=== PATIENT | male | born 1975 | race Caucasian/White ===

== ENCOUNTER 2016-08-06 23:48 | Inpatient (IN) | payer MEDICAID, OTHER ==
[~2016-08-06] VITALS: Ht 170.2 cm; Wt 78.7 kg
[~2016-08-06 23:48] MED LIST: ALBU8.5H3 INH; [UNRECOGNIZED DRUG - OTHER] PO; albuterol
[2016-08-06] MEDS ORDERED: ALBU2.5V3 NEB (23:55)
[2016-08-07 00:30] LABS: ADD SCAN DIFF NO
[2016-08-07 00:33] LABS: BASOPHILS % 0.2 % (0.0-2.0); EOSINOPHILS # 0.1 10^3/ul (0.0-0.5); HEMATOCRIT 38.4 % (42.0-52.0); HEMOGLOBIN 12.6 g/dl (14.0-18.0); LYMPHOCYTES # 2.8 10^3/ul (0.8-2.9); LYMPHOCYTES % 48.2 % (15.0-51.0); MEAN CORPUSCULAR HEMOGLOBIN 26.9 pg (29.0-33.0); MEAN CORPUSCULAR HGB CONC 32.8 g/dl (32.0-37.0); MEAN CORPUSCULAR VOLUME 81.9 fl (82.0-101.0); MEAN PLATELET VOLUME 10.7 fl (7.4-10.4); MONOCYTE # 0.2 10^3/ul (0.3-0.9); MONOCYTES % 3.8 % (0.0-11.0); NEUTROPHIL # 2.7 10^3/ul (1.6-7.5); NEUTROPHILS % 46.6 % (39.0-77.0); PLATELET COUNT 156 10^3/UL (140-415); RED BLOOD COUNT 4.69 10^6/ul (4.70-6.10); RED CELL DISTRIBUTION WIDTH 13.9 % (11.5-14.5); WHITE BLOOD COUNT 5.9 10^3/ul (4.8-10.8)
[2016-08-07] MEDS ORDERED: GLUCAGON 1 MG INJ IM STA (00:44)
[2016-08-07] MEDS ORDERED: ONDANSETRON 4 MG INJ IV STA (00:44)
[2016-08-07 00:52] LABS: ALBUMIN/GLOBULIN RATIO 1.61; BILIRUBIN,INDIRECT 0.3 mg/dl (0-1.1); BILIRUBIN,TOTAL 0.3 mg/dl (0.2-1.3); CALCIUM 9.7 mg/dl (8.4-10.2); CREATININE 0.87 mg/dl (0.61-1.24); TOTAL PROTEIN 8.1 g/dl (6.1-8.1)
[2016-08-07 00:54] LABS: POTASSIUM 2.5 mmol/L (3.5-5.1)
[2016-08-07] MEDS ORDERED: MAGNESIUM SULFATE 1 GM/D5W 100 ML IVPB ONE (01:00)
[2016-08-07] MEDS ORDERED: POTASSIUM CHLORIDE 250 ML IVPB ONE (01:00)
[2016-08-07] MEDS ORDERED: POTASSIUM CHLORIDE (SR) 20 MEQ TAB PO STA (01:00)
[2016-08-07 01:01] LABS: ADD UMIC YES; UR BILIRUBIN (Dip) NEGATIVE (NEGATIVE); UR BLOOD (Dip) 3+ (NEGATIVE); UR COLOR DK. RED (YELLOW); UR KETONES (Dip) 15 (NEGATIVE); UR LEUKOCYTE ESTERASE (Dip) 1+ (NEGATIVE); UR NITRITE (Dip) POSITIVE (NEGATIVE); UR TOTAL PROTEIN (Dip) 2+ (NEGATIVE); UR UROBILINOGEN (Dip) 1.0 E.U./dL (0.1-1.0)
[2016-08-07 01:03] LABS: UR CLARITY CLOUDY (CLEAR)
[2016-08-07] MEDS ORDERED: morphine 4 MG/ML VIAL IV STA (01:11)
[2016-08-07 01:19] LABS: UR SQUAMOUS EPITHELIAL CELL FEW; URINE RBCS >200 /HPF (0)
[2016-08-07] MEDS ORDERED: DEXTROSE 5%-0.45% NACL 1,000 ML IV ONE (01:19)
[2016-08-07 01:20] LABS: UR BACTERIA FEW
[2016-08-07] MEDS ORDERED: DIPHENHYDRAMINE 50 MG INJ IV ONE (01:30)
--- NOTE | 2016-08-07 01:55 | RADRPT ---
PROCEDURE: CT Abdomen and pelvis without contrast. CLINICAL INDICATION: Abdominal pain. TECHNIQUE: CT scan of the abdomen and pelvis was performed on a multi-detector high-resolution CT scanner. Contiguous axial images were obtained from the lung bases to the ischial tuberosities wit hout intravenous contrast. Coronal and sagittal reformatted images were also obtained. Images were reviewed on the PACS workstation. One or more of the following dose reduction techniques were used: - Automated exposure control. - Adjustment of the mA and/or kV according to patient size. - Use of iterative reconstruction technique. Exam CTD/vol = 9.58 mGy. Total exam DLP = 648.72 mGy-cm. COMPARISON: None. FINDINGS: Evaluation of the lung bases demonstrates minimal bibasilar atelectasis. Abdomen: The liver is normal in size with no focal mass identified. The patient is status post cho lecystectomy with mild dilatation of the biliary tree. The spleen is mildly enlarged. The pancreas and bilateral adrenal glands are within normal limits. Bilateral kidneys are normal in size with n o contour deforming mass identified. There are multiple punctate 1-2 mm renal calculi bilaterally. There is no radiopaque ureteral calculus identified. There is no hydronephrosis or hydroureter. T here is no retroperitoneal adenopathy. The abdominal aorta is of normal caliber. There is no abnormal bowel wall thickening or distension. There is no bowel obstruction or free air . The appendix is not visualized. There is no diverticulosis or diverticulitis. There is no ascit es. Pelvis: The bladder is unremarkable. The prostate and seminal vesicles are within normal limits. There is no significant pelvic adenopathy or free fluid. Evaluation of the osseous structures demonstrates no suspicious lytic or blastic lesion. IMPRESSION: Status post cholecystectomy with mild dilatation of the biliary tree. Bilateral nonobstructing renal calculi. Mild splenomegaly. Otherwise no acute abnormality identified within the abdomen and pelvis. .John Peguero MD, MD Date Time Electronically viewed and signed by .John Peguero MD, MD on 08/07/2016 01:54 .T/
[2016-08-07] MEDS ORDERED: CEFTRIAXONE 1 GM/50 ML (PMX) 50 ML IVPB ONE (02:30)
[2016-08-07] MEDS ORDERED: OCTREOTIDE 50 MCG INJ SC ONE ×2 (02:30→03:00)
[2016-08-07] MEDS ORDERED: DEXTROSE 5%-0.45% NACL 1,000 ML IV SCH (02:36)
--- NOTE | 2016-08-07 02:41 | ERA ---
ER Documentation Chief Complaint Date/Time DATE: 08/07/16 TIME: 02:39 Chief Complaint hypoglycemia, found wandering HPI This is a 38-year-old male who presents to the emergency room for evaluation of altered mental status. This patient was found wandering outside of [address]. He appeared to be altered and when EMS evaluated this patient he did have a blood sugar of 24. The this patient oral glucose and transfer the patient to the emergency room. A detailed history is unobtainable from the patient at this time secondary to his clinical condition. ROS All systems reviewed and are negative except as per history of present illness. Medications Home Meds Reported Medications Albuterol Sulfate* (Albuterol Sulfate* Neb) 0.083%-3 Ml Neb, 2.5 MG NEB Q3H Y for WHEEZING AND SOB, #30 VIAL 08/06/16 Allergies Allergies: Coded Allergies: iodine (Verified Allergy, Intermediate, 08/07/16) ketorolac (Verified Allergy, Intermediate, 08/07/16) morphine (Verified Allergy, Intermediate, rashes/itchiness, 08/07/16) sulfamethoxazole (Unverified Allergy, Unknown, 08/06/16) trimethoprim (Unverified Allergy, Unknown, 08/06/16) PMhx/Soc History of Surgery: Yes (pancrease, hernia x 3, appendix, gall bladder) Anesthesia Reaction: No Hx Neurological Disorder: No Hx Respiratory Disorders: Yes (asthma) Hx Cardiac Disorders: No Hx Psychiatric Problems: No Hx Miscellaneous Medical Probl: Yes (hypoglycemia) Hx Alcohol Use: No Hx Substance Use: No Hx Tobacco Use: Yes (2 pks/day) Smoking Status: Current every day smoker Physical Exam Vitals Vital Signs Date Time Temp Pulse Resp B/P Pulse Ox O2 Delivery O2 Flow Rate FiO2 08/07/16 00:00 97.9 106 18 161/102 99 Physical Exam INITIAL VITAL SIGNS: Reviewed by me GENERAL: The patient is well developed and appropriate for usual state of health in no apparent distress HEENT: Pupils equal, round, and reactive to light. EOMI. There is no scleral icterus. NECK: C-spine is soft and supple, there is no meningismus. There is no cervical lymphadenopathy. LUNGS: Clear to auscultation bilaterally. There are no rales, wheezes or rhonchi. HEART: Regular rate and rhythm, no murmurs, clicks, rubs or gallops. ABDOMEN: Soft, non-tender, non-distended. There are bowel sounds in all four quadrants. No rebound or guarding. EXTREMITIES: There is no peripheral cyanosis or edema. No focal swelling or erythema. NEUROLOGICAL: The patient moves all four extremities with 5/5 strength. Cranial nerves II - XII are intact. Normal gait. Alert and oriented to person only SKIN: There is no apparent rash or petechiae. HEME/LYMPHATIC: There is no evidence of excessive bruising or lymphedema. PSYCHIATRIC: The patient does not appear anxious or depressed. Result Diagram: 08/05/16 0004 08/05/16 0004 Results 24 hrs Laboratory Tests Test 08/05/16 00:04 08/06/16 00:45 08/07/16 00:23 08/07/16 00:41 White Blood Count 5.910^3/ul Red Blood Count 4.6910^6/ul Hemoglobin 12.6g/dl Hematocrit 38.4% Mean Corpuscular Volume 81.9fl Mean Corpuscular Hemoglobin 26.9pg Mean Corpuscular Hemoglobin Concent 32.8g/dl Red Cell Distribution Width 13.9% Platelet Count 90511^3/UL Mean Platelet Volume 10.7fl Neutrophils % 46.6% Lymphocytes % 48.2% Monocytes % 3.8% Eosinophils % 1.0% Basophils % 0.2% Nucleated Red Blood Cells % 0.0/100WBC Neutrophils # 2.710^3/ul Lymphocytes # 2.810^3/ul Monocytes # 0.210^3/ul Eosinophils # 0.110^3/ul Basophils # 0.010^3/ul Nucleated Red Blood Cells # 0.010^3/ul Sodium Level 146mmol/L Potassium Level 2.5mmol/L Chloride Level 111mmol/L Carbon Dioxide Level 20mmol/L Anion Gap 18 Blood Urea Nitrogen 15mg/dl Creatinine 0.87mg/dl Glucose Level 342mg/dl Calcium Level 9.7mg/dl Total Bilirubin 0.3mg/dl Direct Bilirubin 0.00mg/dl Indirect Bilirubin 0.3mg/dl Aspartate Amino Transf (AST/SGOT) 104IU/L Alanine Aminotransferase (ALT/SGPT) 138IU/L Alkaline Phosphatase 180IU/L Total Protein 8.1g/dl Albumin 5.0g/dl Globulin 3.10g/dl Albumin/Globulin Ratio 1.61 Lipase 122U/L Urine Color DK. RED Urine Clarity CLOUDY Urine pH 5.0 Urine Specific Boon 1.025 Urine Ketones 15 Urine Nitrite POSITIVE Urine Bilirubin NEGATIVE Urine Urobilinogen 1.0 E.U./dL Urine Leukocyte Esterase 1+ Urine Microscopic RBC >200/HPF Urine Microscopic WBC 2-5/HPF Urine Squamous Epithelial Cells FEW Urine Bacteria FEW Urine Hemoglobin 3+ Urine Glucose 0.5%% Urine Total Protein 2+ Bedside Glucose 89mg/dL 38mg/dL Test 08/07/16 01:05 08/07/16 02:00 08/07/16 02:27 Bedside Glucose 138mg/dL 170mg/dL 109mg/dL Current Medications Medications (Trade) Dose Ordered Sig/Bhakti Route PRN Reason Start Time Stop Time Status Last Admin Dose Admin Dextrose (D50w Syringe) 50 ml ONCE ONCE IV 08/07/16 00:00 08/07/16 00:01 DC 08/07/16 00:01 Glucagon (Glucagen) 1 mg ONCE STAT IM 08/07/16 00:44 08/07/16 00:45 DC 08/07/16 01:02 Ondansetron HCl (Zofran Inj) 4 mg ONCE STAT IV 08/07/16 00:44 08/07/16 00:45 DC 08/07/16 01:02 Potassium Chloride 40 meq 40 meq ONCE STAT PO 08/07/16 01:00 08/07/16 01:11 DC 08/07/16 01:19 Potassium Chloride 250 ml @ 62.5 mls/hr ONCE ONCE IVPB 08/07/16 01:00 08/07/16 04:59 08/07/16 01:18 Magnesium Sulfate/ Dextrose (Magnesium Sulfate 1 Gm/D5W) 100 ml @ 100 mls/hr ONCE ONCE IVPB 08/07/16 01:00 08/07/16 01:59 DC 08/07/16 01:18 Morphine Sulfate 4 mg 4 mg ONCE STAT IV 08/07/16 01:11 08/07/16 01:12 DC 08/07/16 01:18 Dextrose/Sodium Chloride (D5-1/2ns) 1,000 ml @ 250 mls/hr Q4H ONCE IV 08/07/16 01:19 08/07/16 05:18 08/07/16 01:32 Diphenhydramine HCl 25 mg 25 mg ONCE ONCE IV 08/07/16 01:30 08/07/16 01:31 DC 08/07/16 01:31 Ceftriaxone Sodium (Rocephin) 50 ml @ 100 mls/hr ONCE ONCE IVPB 08/07/16 02:30 08/07/16 02:59 Octreotide Acetate (Sandostatin) 100 mcg ONCE ONCE SC 08/07/16 02:30 08/07/16 02:31 DC Octreotide Acetate 100 mcg 100 mcg ONCE ONCE SC 08/07/16 03:00 08/07/16 03:01 UNV Dextrose/Sodium Chloride (D5-1/2ns) 1,000 ml @ 80 mls/hr [id number] IV 08/07/16 02:36 08/07/16 15:05 Ondansetron HCl (Zofran Inj) 4 mg ER BRIDGE PRN IV NAUSEA AND/OR VOMITING 08/07/16 03:00 08/08/16 02:59 Acetaminophen (Tylenol Tab) 650 mg ER BRIDGE PRN PO MILD PAIN/FEVER 08/07/16 03:00 08/08/16 02:59 Procedures/MDM CT abdomen pelvis without: Status post cholecystectomy with mild dilatation of the biliary tree. Bilateral nonobstructing renal calculi. Mild splenomegaly. Otherwise no acute abnormality identified within the abdomen and pelvis. This 38-year-old male presents to the emergency room for evaluation of altered mental status and hypoglycemia. When I evaluated this patient he did have a blood sugar of 38. The patient had received oral glucose. He did receive oral juice. We did give this patient an amp of D50 IV with complete resolution of his symptoms. 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 The patient states that he is on medications to help keep his blood sugars elevated. This patient's blood sugar did start to decrease slightly. He was placed on D5 half-normal saline. The patient was given octreotide 100 mcg subcutaneously. He is tolerating oral challenge. On my reevaluation the patient did have slight flank pain. His urine is nitrite positive and he does have blood in his urine. CT was obtained which does not show any obstructive uropathy. The patient was started on Rocephin. The patient's potassium was also low at 2.5. He was given 1 g of magnesium, 40 medical events of potassium by mouth, 40 mg once via IV and he will be placed on the telemetry floor at this time under the care of her panel physician Dr. Camacho Critical Care: Excluding all billable procedures Time: 38 minutes Treatments/Evaluations: Close monitoring and treatment of unstable vital signs, cardiorespiratory, and neurologic status, while maintaining tight balance of fluid, respiratory, and cardiac interventions. Departure Diagnosis: Primary Impression: Hypoglycemia Additional Impressions: Hypokalemia Insulinoma Microcytic anemia Transaminitis Condition: Stable EDWINA BUNN DO Aug 07, 2016 02:41
[2016-08-07] MEDS ORDERED: ONDANSETRON 4 MG INJ IV PRN ×2 (03:00→05:30)
[2016-08-07] MEDS ORDERED: ACETAMINOPHEN 325 MG TAB PO PRN (03:00)
[2016-08-07] MEDS ORDERED: HYDROmorphONE 1 MG/ML SYG IV STA (03:03)
[2016-08-07] MEDS ORDERED: DEXTROSE 50% 50 ML SYRINGE IV ONE ×3 (03:30→04:00)
[2016-08-07] MEDS ORDERED: NS IV SCH (04:00)
[2016-08-07] MEDS ORDERED: OCTREOTIDE IV SCH (04:00)
[2016-08-07] MEDS: HYDROmorphONE 1 MG/ML SYG IV PRN ×6 (05:39→23:44)
[2016-08-07] MEDS ORDERED: PANTOPRAZOLE 40 MG INJ IV SCH (06:00)
[2016-08-07] MEDS ORDERED: OCTREOTIDE 500 MCG in SOD CHLORIDE 0.9% 49 ML IV SCH (06:00)
[2016-08-07] MEDS ORDERED: CEFTRIAXONE 1 GM/50 ML (PMX) 50 ML IVPB SCH (06:00)
[2016-08-07] MEDS ORDERED: ALBUTEROL 0.083% (NEB) 2.5 MG/3 ML AMP NEB PRN (06:00)
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
[2016-08-07] MEDS: DEXTROSE 10% 1,000 ML IV SCH ×2 (08:42→16:00)
[2016-08-07] MEDS: OCTREOTIDE 50 MCG INJ SC SCH ×3 (13:00→21:00)
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
[2016-08-07] MEDS ORDERED: ZOLPIDEM 5 MG TAB PO PRN (14:00)
--- NOTE | 2016-08-07 16:32 | PN ---
Date/Time of Note Date/Time of Note DATE: 08/07/16 TIME: 16:31 Assessment/Plan VTE Prophylaxis VTE Prophylaxis Intervention: SCD's Lines/Catheters IV Catheter Type (from Nrsg): Saline Lock Assessment/Plan Assessment/Plan This is a 38-year-old male with pmhx insulinoma admitted for symptomatic hypoglycemia requiring high doses of glucose PLAN endo on consult, labs and work up as per endo glucose as per endo given no c/o dysuria will stop abx kidney stones: incidental finding. will strain urine DVT prophx Subjective 24 Hr Interval Summary Free Text/Dictation Pt feeling MUCH better than when he was admitted. States he went to an OSH for hypoglycemia ~6 weeks ago. Exam/Review of Systems Vital Signs Vitals Vital Signs Date Time Temp Pulse Resp B/P Pulse Ox O2 Delivery O2 Flow Rate FiO2 08/07/16 13:00 67 22 133/74 100 Room Air 08/07/16 00:00 97.9 Intake and Output 08/06/16 08/06/16 08/07/16 15:00 23:00 07:00 Intake Total 150 ml Balance 150 ml Exam nad, sitting up in bed playing on phone no mrg lungs clear abd soft no rashes Results Result Diagram: 08/05/16 0004 08/05/16 0004 Results 24 hrs Laboratory Tests Test 08/07/16 00:23 08/07/16 00:41 08/07/16 01:05 08/07/16 02:00 Bedside Glucose 89 38 *L 138 170 Test 08/07/16 02:27 08/07/16 03:07 08/07/16 03:48 08/07/16 04:16 Bedside Glucose 109 28 *L 42 *L 147 Test 08/07/16 04:55 08/07/16 05:48 08/07/16 08:38 08/07/16 10:10 Bedside Glucose 192 138 114 85 Test 08/07/16 11:34 08/07/16 13:05 Bedside Glucose 116 126 Medications Medications Current Medications Octreotide Acetate/Sodium Chloride (Sandostatin/NS) 100 ml @ 5 mls/hr Q20H IV Last administered on 08/07/16t 04:07; Admin Dose 5 MLS/HR; Start 08/07/16 at 04: 00 Dextrose (D50w Syringe) 25 ml PRN PRN IV DECREASED GLUCOSE; Start 08/07/16 at 05:30 Hydromorphone HCl (Dilaudid) 1 mg Q3 PRN IV PAIN LEVEL 7-10 Last administered on 08/07/16 13:10; Admin Dose 1 MG; Start 08/07/16 at 05:30 Ondansetron HCl (Zofran Inj) 4 mg Q6H PRN IV NAUSEA AND/OR VOMITING; Start at 05:30 Pantoprazole 40 mg 40 mg DAILY@06 IV Last administered on 08/07/16 07:07; Admin Dose 40 MG; Start 08/07/16 at 06:00 Ceftriaxone Sodium 50 ml @ 100 mls/hr Q24H IVPB Last administered on 08:41; Admin Dose 100 MLS/HR; Start 08/07/16 at 06:00 Octreotide Acetate 500 mcg/ Sodium Chloride 50 ml @ 2.5 mls/hr Q20H IV ; Start 08/07/16 at 06:00 Dextrose (D10w) 1,000 ml @ 100 mls/hr Q10H IV Last administered on 08/07/16 08:42; Admin Dose 100 MLS/HR; Start 08/07/16 at 06:00 Octreotide Acetate (Sandostatin) 100 mcg QID SC ; Start 08/07/16 at 13:00; Status UNV Diagnostic Test (Pha) (Accu-Chek) 1 ea Q4 XX ; Start 08/07/16 at 17:00 Zolpidem Tartrate (Ambien) 5 mg HS PRN PO INSOMNIA; Start 08/07/16 at 14:00 NEYMAR PERRY MD Aug 07, 2016 16:32
[2016-08-07] MEDS: ACCU-CHEK XX SCH ×2 (17:00→21:00)
[2016-08-07 21:58] LABS: BARBITURATES Negative (NEGATIVE); BENZODIAZEPINES Negative (NEGATIVE); CANNABINOIDS Negative (NEGATIVE); COCAINE Negative (NEGATIVE); OPIATES Positive (NEGATIVE)
[2016-08-08 00:29] LABS: CALCIUM 9.6 mg/dl (8.4-10.2); CREATININE 0.73 mg/dl (0.61-1.24)
[2016-08-08] MEDS: ACCU-CHEK XX SCH ×6 (01:00→21:00)
[2016-08-08] MEDS: DEXTROSE 10% 1,000 ML IV SCH ×3 (02:48→22:00)
[2016-08-08] MEDS: HYDROmorphONE 1 MG/ML SYG IV PRN ×7 (02:50→21:25)
[2016-08-08] MEDS: DEXTROSE 50% 50 ML SYRINGE IV PRN ×6 (05:00→08:44)
[2016-08-08 06:25] LABS: ADD SCAN DIFF NO
[2016-08-08 06:30] LABS: ABNORMAL IP MESSAGE 1; HEMATOCRIT 36.2 % (42.0-52.0); HEMOGLOBIN 11.9 g/dl (14.0-18.0); MEAN CORPUSCULAR HEMOGLOBIN 27.2 pg (29.0-33.0); MEAN CORPUSCULAR HGB CONC 32.9 g/dl (32.0-37.0); MEAN CORPUSCULAR VOLUME 82.6 fl (82.0-101.0); MEAN PLATELET VOLUME 10.1 fl (7.4-10.4); RED BLOOD COUNT 4.38 10^6/ul (4.70-6.10); WHITE BLOOD COUNT 2.6 10^3/ul (4.8-10.8)
[2016-08-08 06:33] LABS: PLATELET COUNT 89 10^3/UL (140-415)
[2016-08-08] MEDS ORDERED: OCTREOTIDE 50 MCG INJ SC SCH (07:00)
[2016-08-08 07:08] LABS: CALCIUM 9.3 mg/dl (8.4-10.2); CREATININE 0.68 mg/dl (0.61-1.24)
[2016-08-08 07:18] LABS: POTASSIUM 2.8 mmol/L (3.5-5.1)
[2016-08-08] MEDS ORDERED: POTASSIUM CHLORIDE (SR) 20 MEQ TAB PO STA (07:21)
[2016-08-08 08:05] LABS: LYMPHOCYTES # 0.7 10^3/ul (0.8-2.9); MONOCYTE # 0.1 10^3/ul (0.3-0.9); NEUTROPHIL # 1.8 10^3/ul (1.6-7.5)
[2016-08-08] MEDS: POTASSIUM CHLORIDE 50 ML IVPB SCH ×4 (08:27→11:47)
[2016-08-08] MEDS: OCTREOTIDE 100 MCG INJ SC SCH ×4 (08:27→19:51)
[2016-08-08] MEDS ORDERED: OCTREOTIDE 50 MCG INJ SC ONE (08:30)
[2016-08-08] MEDS ORDERED: OCTREOTIDE 100 MCG INJ SC SCH (09:00)
[2016-08-08] MEDS: HYDROCODONE/APAP (5/325) TAB PO PRN ×2 (14:45→19:46)
--- NOTE | 2016-08-08 17:59 | CONS ---
Date/Time of Note Date/Time of Note DATE: 08/08/16 TIME: 17:56 Assessment/Plan Assessment/Plan Problems: (1) Hypoglycemia Status: Acute Comment: Wean off IV octreotide and titrate up on octreotide injection dosage. Tumor/endocrine service to evaluate for possibility of recurrent insulinoma. Consultation Date/Type/Reason Admit Date/Time 08/07/16 Initial Consult Date 08/07/16 Type of Consultation: Endocrinology Reason for Consultation Hypoglycemia Referring Provider: CHELSIE HAN MD 24 HR Interval Summary Constitutional: No improved, No no complaints Detailed Summary Respiratory: no complaints Cardiovascular: no complaints Gastrointestinal: pain (from hernia) Genitourinary: dysuria (hurts when he tries to urinate, causes pressure in lower abdomen) Neurologic: no complaints Exam/Review of Systems Vital Signs Vitals VS - Last 72 Hours, by Label Date Time Temp Pulse Resp B/P Pulse Ox O2 Delivery O2 Flow Rate FiO2 08/08/16 17:04 97.3 81 16 122/74 100 08/08/16 13:57 63 16 143/74 96 08/08/16 09:57 68 18 139/71 97 Room Air 08/08/16 07:03 76 18 130/70 99 Room Air 08/08/16 03:28 75 18 130/78 99 Room Air 08/07/16 23:42 76 18 141/95 99 Room Air 08/07/16 21:20 73 20 126/75 100 Room Air 08/07/16 19:00 84 16 135/101 97 Room Air 08/07/16 18:00 68 17 127/77 95 Room Air 08/07/16 17:00 98 20 130/72 95 Room Air 08/07/16 16:00 73 22 134/80 Nasal Cannula 08/07/16 13:00 67 22 133/74 100 Room Air 08/07/16 12:01 66 20 103/63 100 Room Air 08/07/16 11:00 67 15 116/76 96 Room Air 08/07/16 10:00 61 18 98/66 97 Room Air 08/07/16 09:00 64 16 96/58 98 Room Air 08/07/16 08:00 61 14 98/55 95 Room Air 08/07/16 07:00 74 16 101/64 97 Room Air 08/07/16 06:00 80 17 111/80 96 Room Air 08/07/16 05:00 81 14 104/58 97 Room Air 08/07/16 04:00 83 15 111/60 94 Room Air 08/07/16 03:00 79 16 105/68 96 Room Air 08/07/16 02:00 89 14 125/71 96 Room Air 08/07/16 01:00 98 10 125/79 96 Room Air 08/07/16 00:00 97.9 106 18 161/102 99 Vital Signs Date Time Temp Pulse Resp B/P Pulse Ox O2 Delivery O2 Flow Rate FiO2 08/08/16 17:04 97.3 81 16 122/74 100 08/08/16 09:57 Room Air Intake and Output 08/07/16 08/07/16 08/08/16 15:00 23:00 07:00 Intake Total 1300 ml Balance 1300 ml Exam Constitutional: alert, oriented, well developed Psych: nl mood/affect, no complaints Respiratory: clear to auscultation, normal air movement Cardiovascular: nl pulses, regular rate and rhythm, No edema, No murmurs/extra sounds, No rub Gastrointestinal: bowel sounds, nl liver, spleen, soft, tender (RUQ and suprapubic), No mass, No non-tender, No rebound or guarding Musculoskeletal: nl extremities to inspection Extremities: normal pulses, No clubbing, No cyanosis, No edema Neurological: INTERNET MANAGER II-XII intact, nl mental status, nl speech, nl strength Additional Comments Bedside Glucose - 72 Hours Test 08/07/16 00:23 08/07/16 00:41 08/07/16 01:05 08/07/16 02:00 Bedside Glucose 89mg/dL (70-220) 38mg/dL (70-220) *L 138mg/dL (70-220) 170mg/dL (70-220) Test 08/07/16 02:27 08/07/16 03:07 08/07/16 03:48 08/07/16 04:16 Bedside Glucose 109mg/dL (70-220) 28mg/dL (70-220) *L 42mg/dL (70-220) *L 147mg/dL (70-220) Test 08/07/16 04:55 08/07/16 05:48 08/07/16 08:38 08/07/16 10:10 Bedside Glucose 192mg/dL (70-220) 138mg/dL (70-220) 114mg/dL (70-220) 85mg/dL (70-220) Test 08/07/16 11:34 08/07/16 13:05 08/07/16 17:04 08/07/16 18:40 Bedside Glucose 116mg/dL (70-220) 126mg/dL (70-220) 169mg/dL (70-220) 164mg/dL (70-220) Test 08/07/16 22:47 08/08/16 02:34 08/08/16 04:35 08/08/16 04:57 Bedside Glucose 159mg/dL (70-220) 161mg/dL (70-220) 140mg/dL (70-220) 48mg/dL (70-220) *L Test 08/08/16 05:29 08/08/16 05:52 08/08/16 06:21 08/08/16 06:52 Bedside Glucose 55mg/dL (70-220) L 107mg/dL (70-220) 40mg/dL (70-220) *L 87mg/dL (70-220) Test 08/08/16 07:18 08/08/16 08:19 08/08/16 09:08 08/08/16 09:47 Bedside Glucose 54mg/dL (70-220) L 69mg/dL (70-220) L 125mg/dL (70-220) 119mg/dL (70-220) Test 08/08/16 10:50 08/08/16 12:04 08/08/16 15:17 Bedside Glucose 131mg/dL (70-220) 133mg/dL (70-220) 158mg/dL (70-220) Results Result Diagram: 08/08/16 0541 08/08/16 0541 Results 24 hrs Laboratory Tests Test 08/07/16 18:40 08/07/16 22:47 08/07/16 23:18 08/08/16 02:34 Bedside Glucose 164 159 161 Sodium Level 142 Potassium Level 4.0 Chloride Level 107 Carbon Dioxide Level 26 Anion Gap 13 Blood Urea Nitrogen 7 Creatinine 0.73 Glucose Level 151 Calcium Level 9.6 Test 08/08/16 04:35 08/08/16 04:57 08/08/16 05:29 08/08/16 05:41 Bedside Glucose 140 48 *L 55 L White Blood Count 2.6 #L Red Blood Count 4.38 L Hemoglobin 11.9 L Hematocrit 36.2 L Mean Corpuscular Volume 82.6 Mean Corpuscular Hemoglobin 27.2 L Mean Corpuscular Hemoglobin Concent 32.9 Red Cell Distribution Width 14.0 Platelet Count 89 #L Mean Platelet Volume 10.1 Neutrophils % 70.0 Lymphocytes % 27.0 Monocytes % 2.0 Eosinophils % 1.0 Neutrophils # 1.8 Lymphocytes # 0.7 L Monocytes # 0.1 L Eosinophils # 0.0 Differential Comment MANUAL DIFF Sodium Level 141 Potassium Level 2.8 *L Chloride Level 108 Carbon Dioxide Level 24 Anion Gap 12 Blood Urea Nitrogen 6 L Creatinine 0.68 Glucose Level 61 #L Calcium Level 9.3 Test 08/08/16 05:52 08/08/16 06:21 08/08/16 06:52 08/08/16 07:18 Bedside Glucose 107 40 *L 87 54 L Test 08/08/16 08:19 08/08/16 09:08 08/08/16 09:47 08/08/16 10:50 Bedside Glucose 69 L 125 119 131 Test 08/08/16 12:04 08/08/16 15:17 Bedside Glucose 133 158 Medications Medications Current Medications Dextrose (D50w Syringe) 25 ml PRN PRN IV DECREASED GLUCOSE Last administered on 08/08/16 08:44; Admin Dose 25 ML; Start 08/07/16 at 05:30 Hydromorphone HCl (Dilaudid) 1 mg Q3 PRN IV PAIN LEVEL 7-10 Last administered on 08/08/16 15:28; Admin Dose 1 MG; Start 08/07/16 at 05:30 Ondansetron HCl 4 mg 4 mg Q6H PRN IV NAUSEA AND/OR VOMITING Last administered on 08/08/16 08:26; Admin Dose 4 MG; Start 08/07/16 at 05:30 Dextrose (D10w) 1,000 ml @ 100 mls/hr Q10H IV Last administered on 08/08/16 14:47; Admin Dose 100 MLS/HR; Start 08/07/16 at 06:00 Diagnostic Test (Pha) (Accu-Chek) 1 ea Q4 XX Last administered on 08/08/16 10: 51; Admin Dose 1 EA; Start 08/07/16 at 17:00 Zolpidem Tartrate (Ambien) 5 mg HS PRN PO INSOMNIA; Start 08/07/16 at 14:00 Octreotide Acetate (Sandostatin) 200 mcg Q6 SC Last administered on 08/08/16 13:43; Admin Dose 200 MCG; Start 08/08/16 at 08:15 Acetaminophen/ Hydrocodone Bitart ([place] (5/325)) 2 tab Q4 PRN PO SEVERE PAIN LEVEL 7-10 Last administered on 08/08/16 14:45; Admin Dose 2 TAB; Start at 14:30 EUGENE DAN MD Aug 08, 2016 17:59
--- NOTE | 2016-08-08 21:54 | PN ---
Date/Time of Note Date/Time of Note DATE: 08/08/16 TIME: 21:54 Assessment/Plan Lines/Catheters IV Catheter Type (from Nrs): Saline Lock Assessment/Plan Assessment/Plan 1. Symptomatic hypoglycemia , pt with hx of insulinoma - endocrine on board, managing octreotide. plan for eval of recurrence of insulinoma 2. Pancytopenia - monitor for now. check am lab Exam/Review of Systems Vital Signs Vitals Vital Signs Date Time Temp Pulse Resp B/P Pulse Ox O2 Delivery O2 Flow Rate FiO2 08/08/16 21:00 65 17 133/81 97 Room Air 08/08/16 17:04 97.3 Intake and Output 08/07/16 08/07/16 08/08/16 15:00 23:00 07:00 Intake Total 1300 ml Balance 1300 ml Exam Constitutional: alert, oriented Head: atraumatic, normocephalic Neck: non-tender, supple Respiratory: clear to auscultation, normal air movement Cardiovascular: nl pulses, regular rate and rhythm Gastrointestinal: soft Extremities: normal pulses Results Result Diagram: 08/08/16 0541 08/08/16 0541 Results 24 hrs Laboratory Tests Test 08/07/16 22:47 08/07/16 23:18 08/08/16 02:34 08/08/16 04:35 Bedside Glucose 159 161 140 Sodium Level 142 Potassium Level 4.0 Chloride Level 107 Carbon Dioxide Level 26 Anion Gap 13 Blood Urea Nitrogen 7 Creatinine 0.73 Glucose Level 151 Calcium Level 9.6 Test 08/08/16 04:57 08/08/16 05:29 08/08/16 05:41 08/08/16 05:52 Bedside Glucose 48 *L 55 L 107 White Blood Count 2.6 #L Red Blood Count 4.38 L Hemoglobin 11.9 L Hematocrit 36.2 L Mean Corpuscular Volume 82.6 Mean Corpuscular Hemoglobin 27.2 L Mean Corpuscular Hemoglobin Concent 32.9 Red Cell Distribution Width 14.0 Platelet Count 89 #L Mean Platelet Volume 10.1 Neutrophils % 70.0 Lymphocytes % 27.0 Monocytes % 2.0 Eosinophils % 1.0 Neutrophils # 1.8 Lymphocytes # 0.7 L Monocytes # 0.1 L Eosinophils # 0.0 Differential Comment MANUAL DIFF Sodium Level 141 Potassium Level 2.8 *L Chloride Level 108 Carbon Dioxide Level 24 Anion Gap 12 Blood Urea Nitrogen 6 L Creatinine 0.68 Glucose Level 61 #L Calcium Level 9.3 Test 08/08/16 06:21 08/08/16 06:52 08/08/16 07:18 08/08/16 08:19 Bedside Glucose 40 *L 87 54 L 69 L Test 08/08/16 09:08 08/08/16 09:47 08/08/16 10:50 08/08/16 12:04 Bedside Glucose 125 119 131 133 Test 08/08/16 15:17 08/08/16 18:00 08/08/16 20:58 Bedside Glucose 158 197 136 Medications Medications Current Medications Dextrose (D50w Syringe) 25 ml PRN PRN IV DECREASED GLUCOSE Last administered on 08/08/16 08:44; Admin Dose 25 ML; Start 08/07/16 at 05:30 Hydromorphone HCl (Dilaudid) 1 mg Q3 PRN IV PAIN LEVEL 7-10 Last administered on 08/08/16 21:25; Admin Dose 1 MG; Start 08/07/16 at 05:30 Ondansetron HCl 4 mg 4 mg Q6H PRN IV NAUSEA AND/OR VOMITING Last administered on 08/08/16 08:26; Admin Dose 4 MG; Start 08/07/16 at 05:30 Dextrose (D10w) 1,000 ml @ 100 mls/hr Q10H IV Last administered on 08/08/16 14:47; Admin Dose 100 MLS/HR; Start 08/07/16 at 06:00 Diagnostic Test (Pha) (Accu-Chek) 1 ea Q4 XX Last administered on 08/08/16 10: 51; Admin Dose 1 EA; Start 08/07/16 at 17:00 Zolpidem Tartrate (Ambien) 5 mg HS PRN PO INSOMNIA; Start 08/07/16 at 14:00 Acetaminophen/ Hydrocodone Bitart ([place] (5/325)) 2 tab Q4 PRN PO SEVERE PAIN LEVEL 7-10 Last administered on 08/08/16 19:46; Admin Dose 2 TAB; Start at 14:30 Octreotide Acetate (Sandostatin) 300 mcg Q6 SC Last administered on 08/08/16 19:51; Admin Dose 300 MCG; Start 08/08/16 at 18:00 JEANNIE CANNON MD Aug 08, 2016 21:54
[2016-08-09] MEDS: HYDROmorphONE 1 MG/ML SYG IV PRN ×6 (00:26→16:40)
[2016-08-09] MEDS: OCTREOTIDE 100 MCG INJ SC SCH (00:27)
[2016-08-09] MEDS: ACCU-CHEK XX SCH ×2 (01:00→05:00)
[2016-08-09] MEDS: HYDROCODONE/APAP (5/325) TAB PO PRN (06:18)
[2016-08-09 07:09] LABS: ADD SCAN DIFF NO
[2016-08-09 07:19] LABS: BASOPHILS % 0.2 % (0.0-2.0); EOSINOPHILS % 0.5 % (0.0-7.0); HEMOGLOBIN 12.7 g/dl (14.0-18.0); LYMPHOCYTES # 1.1 10^3/ul (0.8-2.9); LYMPHOCYTES % 27.8 % (15.0-51.0); MEAN CORPUSCULAR HEMOGLOBIN 26.9 pg (29.0-33.0); MEAN CORPUSCULAR HGB CONC 32.6 g/dl (32.0-37.0); MEAN CORPUSCULAR VOLUME 82.6 fl (82.0-101.0); MEAN PLATELET VOLUME 10.3 fl (7.4-10.4); MONOCYTE # 0.3 10^3/ul (0.3-0.9); NEUTROPHIL # 2.6 10^3/ul (1.6-7.5); NEUTROPHILS % 63.3 % (39.0-77.0); PLATELET COUNT 123 10^3/UL (140-415); RED BLOOD COUNT 4.72 10^6/ul (4.70-6.10); WHITE BLOOD COUNT 4.1 10^3/ul (4.8-10.8)
[2016-08-09] MEDS ORDERED: LORAZEPAM 2 MG INJ IV PRN (12:30)
--- NOTE | 2016-08-09 13:17 | PN ---
Date/Time of Note Date/Time of Note DATE: 08/09/16 TIME: 13:13 Assessment/Plan VTE Prophylaxis VTE Prophylaxis Intervention: SCD's Lines/Catheters IV Catheter Type (from Nrsg): Saline Lock Assessment/Plan Assessment/Plan 1. Symptomatic hypoglycemia , pt with hx of insulinoma - endocrine on board, managing octreotide. plan for eval of recurrence of insulinoma 2. Pancytopenia - monitor for now. check am lab 3. Hypokalemia - replete as needed - check BMP now Subjective 24 Hr Interval Summary Free Text/Dictation pt still in ER awaiting admission. denied dizziness, weakness or syncope. c/o abd pain, which he said is from previous hernia Exam/Review of Systems Vital Signs Vitals Vital Signs Date Time Temp Pulse Resp B/P Pulse Ox O2 Delivery O2 Flow Rate FiO2 08/09/16 09:40 60 16 133/76 98 Room Air 08/08/16 17:04 97.3 Intake and Output 08/08/16 08/08/16 08/09/16 15:00 23:00 07:00 Output Total 1100 ml 1250 ml Balance -1100 ml -1250 ml Exam Constitutional: alert, oriented Head: atraumatic, normocephalic Neck: non-tender, supple Respiratory: clear to auscultation, normal air movement Cardiovascular: nl pulses, regular rate and rhythm Gastrointestinal: soft Extremities: normal pulses Results Result Diagram: 08/09/16 0633 08/08/16 0541 Results 24 hrs Laboratory Tests Test 08/08/16 15:17 08/08/16 18:00 08/08/16 20:58 08/08/16 23:53 Bedside Glucose 158 197 136 154 Test 08/09/16 03:37 08/09/16 05:25 08/09/16 06:33 08/09/16 12:10 Bedside Glucose 139 141 129 White Blood Count 4.1 #L Red Blood Count 4.72 Hemoglobin 12.7 L Hematocrit 39.0 L Mean Corpuscular Volume 82.6 Mean Corpuscular Hemoglobin 26.9 L Mean Corpuscular Hemoglobin Concent 32.6 Red Cell Distribution Width 14.0 Platelet Count 123 #L Mean Platelet Volume 10.3 Neutrophils % 63.3 Lymphocytes % 27.8 Monocytes % 8.0 Eosinophils % 0.5 Basophils % 0.2 Nucleated Red Blood Cells % 0.0 Neutrophils # 2.6 Lymphocytes # 1.1 Monocytes # 0.3 Eosinophils # 0.0 Basophils # 0.0 Nucleated Red Blood Cells # 0.0 Medications Medications Current Medications Dextrose (D50w Syringe) 25 ml PRN PRN IV DECREASED GLUCOSE Last administered on 08/08/16 08:44; Admin Dose 25 ML; Start 08/07/16 at 05:30 Hydromorphone HCl (Dilaudid) 1 mg Q3 PRN IV PAIN LEVEL 7-10 Last administered on 08/09/16 10:21; Admin Dose 1 MG; Start 08/07/16 at 05:30 Ondansetron HCl 4 mg 4 mg Q6H PRN IV NAUSEA AND/OR VOMITING Last administered on 08/08/16 08:26; Admin Dose 4 MG; Start 08/07/16 at 05:30 Dextrose (D10w) 1,000 ml @ 100 mls/hr Q10H IV Last administered on 08/08/16 14:47; Admin Dose 100 MLS/HR; Start 08/07/16 at 06:00 Diagnostic Test (Pha) (Accu-Chek) 1 ea Q4 XX Last administered on 08/08/16 10: 51; Admin Dose 1 EA; Start 08/07/16 at 17:00 Zolpidem Tartrate (Ambien) 5 mg HS PRN PO INSOMNIA Last administered on 00:26; Admin Dose 5 MG; Start 08/07/16 at 14:00 Acetaminophen/ Hydrocodone Bitart ([place] (5/325)) 2 tab Q4 PRN PO SEVERE PAIN LEVEL 7-10 Last administered on 08/09/16 06:18; Admin Dose 2 TAB; Start at 14:30 Octreotide Acetate (Sandostatin) 300 mcg Q6 SC Last administered on 08/09/16 00:27; Admin Dose 300 MCG; Start 08/08/16 at 18:00 Lorazepam (Ativan) 1 mg Q4H PRN IV anxiety; Start 08/09/16 at 12:30 JEANNIE CANNON MD Aug 09, 2016 13:17
[2016-08-09 16:44] VITALS: TEMP 98.3
[2016-08-09 17:35] VITALS: BP 125/61; PULSE 65; RESP 18
[2016-08-09 17:41] VITALS: Ht 170.2 cm; Wt 78.7 kg
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
== END 2016-08-09 18:07 | disposition left against medical advice (07) | DRG 641 ==
LOC: E/R 23:48 → TEL 08-07 02:37 → MERGE 08-07 02:37 → EDBD 08-07 02:37 → L-D 08-07 02:39 → UNDOADMIN 08-07 02:39 → TEL 08-09 17:25
PROVIDERS: ADMIT Family Medicine; ATTEND Family Medicine
DX: E16.2 Hypoglycemia, unspecified (principal); D61.818 Other pancytopenia; N39.0 Urinary tract infection, site not specified; J45.909 Unspecified asthma, uncomplicated; F17.210 Nicotine dependence, cigarettes, uncomplicated; E87.6 Hypokalemia; G89.29 Other chronic pain; R10.9 Unspecified abdominal pain; Z83.3 Family history of diabetes mellitus; Z60.9 Problem related to social environment, unspecified
CPT/HCPCS: 74176; 80048; 80053; 80307; 81001; 82962; 83525; 83690; 84681; 85025; 86337; C9113; J0696; J1170; J1200; J1610; J2270; J2354; J2405; J3010; J3475; J3480; J7042

== ENCOUNTER 2016-09-12 19:55 | Inpatient (IN) | payer OTHER ==
[~2016-09-12] VITALS: Ht 170.2 cm; Wt 78.0 kg
[~2016-09-12 19:55] MED LIST changes: +ALBU2.5V3 NEB
[2016-09-12] MEDS ORDERED: DEXTROSE 50% 50 ML SYRINGE IV STA (20:34)
[2016-09-13] VITALS (7 sets, daily range): BP systolic 103–129; BP diastolic 63–74; PULSE 71–75; RESP 16–17; TEMP 98.1; Ht 170.2 cm; Wt 78.0 kg
[2016-09-13 01:00] LABS: UR MUCUS FEW /HPF (NONE SEEN); UR RBC 6 /HPF (0-5)
[2016-09-13 01:01] LABS: ADD UMIC NO; UR ASCORBIC ACID 40 mg/dL (NEGATIVE); UR BILIRUBIN (Dip) NEGATIVE (NEGATIVE); UR BLOOD (Dip) NEGATIVE (NEGATIVE); UR CLARITY SLIGHTLY CLOUDY (CLEAR); UR COLOR YELLOW (YELLOW); UR GLUCOSE (Dip) 2+ mg/dL (NEGATIVE); UR KETONES (Dip) NEGATIVE (NEGATIVE); UR LEUKOCYTE ESTERASE (Dip) NEGATIVE Leu/ul (NEGATIVE); UR NITRITE (Dip) NEGATIVE (NEGATIVE); UR SPECIFIC GRAVITY (Dip) 1.038 (1.003-1.030); UR TOTAL PROTEIN (Dip) NEGATIVE (NEGATIVE); UR UROBILINOGEN (Dip) NEGATIVE (NEGATIVE)
[2016-09-13 01:23] LABS: CALCIUM 10.5 mg/dl (8.4-10.2); CREATININE 0.99 mg/dl (0.61-1.24); POTASSIUM 3.2 mmol/L (3.5-5.1); TOTAL PROTEIN 8.9 g/dl (6.1-8.1)
[2016-09-13 01:24] LABS: ALBUMIN/GLOBULIN RATIO 1.28
[2016-09-13 01:47] LABS: BASOPHILS % 0.2 % (0.0-2.0); EOSINOPHILS # 0.1 10^3/ul (0.0-0.5); HEMATOCRIT 40.7 % (42.0-52.0); HEMOGLOBIN 13.9 g/dl (14.0-18.0); LYMPHOCYTES # 1.8 10^3/ul (0.8-2.9); LYMPHOCYTES % 36.2 % (15.0-51.0); MEAN CORPUSCULAR HGB CONC 34.2 g/dl (32.0-37.0); MEAN CORPUSCULAR VOLUME 81.9 fl (82.0-101.0); MEAN PLATELET VOLUME 10.9 fl (7.4-10.4); MONOCYTE # 0.2 10^3/ul (0.3-0.9); MONOCYTES % 3.3 % (0.0-11.0); NEUTROPHIL # 2.8 10^3/ul (1.6-7.5); NEUTROPHILS % 58.9 % (39.0-77.0); PLATELET COUNT 228 10^3/UL (140-415); RED BLOOD COUNT 4.97 10^6/ul (4.70-6.10); RED CELL DISTRIBUTION WIDTH 14.5 % (11.5-14.5); WHITE BLOOD COUNT 4.8 10^3/ul (4.8-10.8)
[2016-09-13] MEDS ORDERED: ZOLP5TAB7 PO (02:04)
[2016-09-13] MEDS ORDERED: OXCA300T41 PO (02:04)
[2016-09-13] MEDS ORDERED: HYDR-902 PO (02:04)
[2016-09-13] MEDS ORDERED: PROP20TA4 PO (02:04)
[2016-09-13] MEDS ORDERED: QUET300T13 PO (02:04)
[2016-09-13] MEDS ORDERED: POTASSIUM CHLORIDE (SR) 20 MEQ TAB PO STA (02:13)
[2016-09-13] MEDS ORDERED: DEXTROSE 50% 50 ML SYRINGE IV PRN ×2 (02:30)
[2016-09-13] MEDS ORDERED: GLUCAGON 1 MG INJ IM PRN (02:30)
[2016-09-13] MEDS ORDERED: GLUCOSE GEL 15 GRAM TUBE BUCCAL PRN (02:30)
[2016-09-13] MEDS ORDERED: GLUCOSE GEL 15 GRAM TUBE PO PRN ×2 (02:30)
[2016-09-13 02:31] LABS: BILIRUBIN,INDIRECT 0.2 mg/dl (0-1.1); BILIRUBIN,TOTAL 0.2 mg/dl (0.2-1.3)
--- NOTE | 2016-09-13 02:32 | ERA ---
ER Documentation Chief Complaint Date/Time DATE: 09/13/16 TIME: 02:31 Chief Complaint states feels low blood sugar/dizzy x 2 days HPI Is a 40-year-old male history of insulinoma comes in with recurrent low blood sugars. He sees states that his low blood sugar and dizziness is been going on and off of past 2 days. No fevers no chills. No other current complaints. ROS All systems reviewed and are negative except as per history of present illness. Medications Home Meds Reported Medications Zolpidem Tartrate* (Zolpidem Tartrate*) 5 Mg Tablet, 5 MG PO QHS Y for INSOMNIA , #30 TAB 09/13/16 Hydrocodone/Acetaminophen ([place] 10-325 Tablet) 1 Each Tablet, 1 EACH PO, TAB 09/13/16 Quetiapine Fumarate* (Seroquel*) 300 Mg Tablet, 300 MG PO HS, TAB 09/13/16 Oxcarbazepine* (Oxcarbazepine*) 300 Mg Tablet, 300 MG PO QHS, TAB 09/13/16 Propranolol Hcl* (Propranolol Hcl*) 20 Mg Tablet, 20 MG PO BID, TAB 09/13/16 Discontinued Reported Medications Albuterol Sulfate* (Albuterol Sulfate* Neb) 0.083%-3 Ml Neb, 2.5 MG NEB Q3H Y for WHEEZING AND SOB, #30 VIAL 08/06/16 Albuterol Sulfate* (Proair HFA*) 8.5 Gm Hfa.aer.ad, 2 PUFF INH Q4, INH 08/01/13 Diazoxide (Proglycem) 50 Mg/Ml Susp, 100 MG PO HS 05/04/13 Diazoxide (Proglycem) 50 Mg/Ml Susp, 50 MG PO BEFORE MEALS 05/04/13 [albuterol] No Conflict Check 01/20/12 Allergies Allergies: Coded Allergies: iodine (Unverified Allergy, Intermediate, 09/13/16) morphine (Unverified Allergy, Intermediate, rashes/itchiness, 09/13/16) fluoxetine (Unverified Allergy, Unknown, 09/13/16) ketorolac (Unverified Allergy, Unknown, 09/13/16) meperidine (Unverified Allergy, Unknown, 09/13/16) sulfamethoxazole (Unverified Allergy, Unknown, 09/13/16) trimethoprim (Unverified Allergy, Unknown, 09/13/16) Uncoded Allergies: IV CONTRAST (Allergy, Unknown, 06/24/13) NONE (Allergy, Unknown, 08/11/16) PMhx/Soc History of Surgery: No (pancreatectomy, cholecystectomy, 2 hernia repairs and appendectomy) Anesthesia Reaction: No Hx Neurological Disorder: No Hx Respiratory Disorders: No Hx Cardiac Disorders: No Hx Psychiatric Problems: No Hx Miscellaneous Medical Probl: No Hx Alcohol Use: No Hx Substance Use: No Hx Tobacco Use: No Smoking Status: Never smoker Physical Exam Vitals Vital Signs Date Time Temp Pulse Resp B/P Pulse Ox O2 Delivery O2 Flow Rate FiO2 09/13/16 00:00 74 14 103/64 98 09/12/16 22:00 75 14 109/64 98 09/12/16 20:35 70 15 129/88 99 09/12/16 20:01 98.1 89 20 124/67 98 Physical Exam Const: [] Head: Atraumatic Eyes: Normal Conjunctiva ENT: Normal External Ears, Nose and Mouth. Neck: Full range of motion..~ No meningismus. Resp: Clear to auscultation bilaterally Cardio: Regular rate and rhythm, no murmurs Abd: Soft, non tender, non distended. Normal bowel sounds Skin: No petechiae or rashes Back: No midline or flank tenderness Ext: No cyanosis, or edema Neur: Awake and alert Psych: Normal Mood and Affect Result Diagram: 09/12/160 09/12/16 2200 Results 24 hrs Laboratory Tests Test 09/12/16 20:33 09/12/16 20:48 09/12/16 21:06 09/12/16 21:37 Bedside Glucose 42mg/dL 175mg/dL 149mg/dL 97mg/dL Test 09/12/16 21:58 09/12/16 22:00 09/12/16 22:25 09/13/16 00:44 Bedside Glucose 96mg/dL 103mg/dL 64mg/dL White Blood Count 4.810^3/ul Red Blood Count 4.9710^6/ul Hemoglobin 13.9g/dl Hematocrit 40.7% Mean Corpuscular Volume 81.9fl Mean Corpuscular Hemoglobin 28.0pg Mean Corpuscular Hemoglobin Concent 34.2g/dl Red Cell Distribution Width 14.5% Platelet Count 93984^3/UL Mean Platelet Volume 10.9fl Neutrophils % 58.9% Lymphocytes % 36.2% Monocytes % 3.3% Eosinophils % 1.0% Basophils % 0.2% Nucleated Red Blood Cells % 0.0/100WBC Neutrophils # 2.810^3/ul Lymphocytes # 1.810^3/ul Monocytes # 0.210^3/ul Eosinophils # 0.110^3/ul Basophils # 0.010^3/ul Nucleated Red Blood Cells # 0.010^3/ul Urine Color YELLOW Urine Clarity SLIGHTLY CLOUDY Urine pH 5.0 Urine Specific [place] 1.038 Urine Ketones NEGATIVEmg/dL Urine Nitrite NEGATIVEmg/dL Urine Bilirubin NEGATIVEmg/dL Urine Urobilinogen NEGATIVEmg/dL Urine Leukocyte Esterase NEGATIVELeu/ul Urine Microscopic RBC 6/HPF Urine Microscopic WBC 3/HPF Urine Calcium Oxalate Crystals MANY/HPF Urine Mucus FEW/HPF Urine Hemoglobin NEGATIVEmg/dL Urine Glucose 2+mg/dL Urine Total Protein NEGATIVEmg/dl Sodium Level 149mmol/L Potassium Level 3.2mmol/L Chloride Level 104mmol/L Carbon Dioxide Level 27mmol/L Anion Gap 21 Blood Urea Nitrogen 15mg/dl Creatinine 0.99mg/dl Glucose Level 35mg/dl Calcium Level 10.5mg/dl Total Bilirubin Pending Direct Bilirubin Pending Indirect Bilirubin Pending Aspartate Amino Transf (AST/SGOT) Pending Alanine Aminotransferase (ALT/SGPT) 150IU/L Alkaline Phosphatase 150IU/L Total Protein 8.9g/dl Albumin 5.0g/dl Globulin 3.90g/dl Albumin/Globulin Ratio 1.28 Lipase 198U/L Test 09/13/16 00:59 09/13/16 01:10 Bedside Glucose 70mg/dL 101mg/dL Current Medications Medications (Trade) Dose Ordered Sig/Bhakti Route PRN Reason Start Time Stop Time Status Last Admin Dose Admin Dextrose (D50w Syringe) 50 ml ONCE STAT IV 09/12/16 20:34 09/12/16 20:35 DC 09/12/16 20:37 Ondansetron HCl 4 mg 4 mg ONCE IV 09/12/16 21:30 09/12/16 23:00 DC Dextrose/Sodium Chloride (D5-1/2ns) 1,000 ml @ 200 mls/hr Q5H IV 09/12/16 21:30 Hydromorphone HCl (Dilaudid) 1 mg ONCE IV 09/12/16 21:30 09/12/16 23:00 DC Oxcarbazepine (Trileptal) 300 mg QHS PO 09/13/16 21:00 Propranolol HCl (Inderal) 20 mg BID PO 09/13/16 09:00 Quetiapine Fumarate (Seroquel) 300 mg HS PO 09/13/16 21:00 Potassium Chloride (Klor-Con 20) 40 meq ONCE STAT PO 09/13/16 02:13 09/13/16 02:21 DC Insulin Aspart (Novolog Insulin Pen) NOVOLOG *MILD* ALGORITHM WITH MEALS BEDTIME SC 09/13/16 08:00 Miscellaneous Information (* Miscellaneous Pharmacy Order) Discontinue all previ... ONCE ONCE XX 09/13/16 02:30 09/13/16 02:31 Miscellaneous Information 1 ea NOTE XX 09/13/16 02:30 Glucose (Glutose) 15 gm Q15M PRN PO DECREASED GLUCOSE 09/13/16 02:30 Glucose (Glutose) 22.5 gm Q15M PRN PO DECREASED GLUCOSE 09/13/16 02:30 Dextrose (D50w Syringe) 25 ml Q15M PRN IV DECREASED GLUCOSE 09/13/16 02:30 Dextrose (D50w Syringe) 50 ml Q15M PRN IV DECREASED GLUCOSE 09/13/16 02:30 Glucagon (Glucagen) 1 mg Q15M PRN IM DECREASED GLUCOSE 09/13/16 02:30 Glucose (Glutose) 15 gm Q15M PRN BUCCAL DECREASED GLUCOSE 09/13/16 02:30 Procedures/MDM Medical decision-making: Patient with recurrent hypoglycemia despite optimal therapy. Patient will be admitted to Dr. Rolle for further evaluation and management. Departure Diagnosis: Primary Impression: Hypoglycemia Additional Impression: Insulinoma Condition: Serious JEANNIE BOWLING Sep 13, 2016 02:31
[2016-09-13] MEDS: HYDROmorphONE 1 MG/ML SYG IV SCH ×2 (04:29→05:52)
[2016-09-13] MEDS: ONDANSETRON 4 MG INJ IV SCH ×2 (04:30→05:52)
[2016-09-13] MEDS: DEXTROSE 5%-0.45% NACL 1,000 ML IV SCH ×6 (05:53→20:55)
[2016-09-13 06:26] LABS: BASOPHILS % 0.3 % (0.0-2.0); HEMATOCRIT 35.6 % (42.0-52.0); HEMOGLOBIN 11.7 g/dl (14.0-18.0); LYMPHOCYTES # 0.9 10^3/ul (0.8-2.9); LYMPHOCYTES % 27.8 % (15.0-51.0); MEAN CORPUSCULAR HEMOGLOBIN 27.3 pg (29.0-33.0); MEAN CORPUSCULAR HGB CONC 32.9 g/dl (32.0-37.0); MEAN PLATELET VOLUME 10.8 fl (7.4-10.4); MONOCYTE # 0.4 10^3/ul (0.3-0.9); MONOCYTES % 13.7 % (0.0-11.0); NEUTROPHIL # 1.8 10^3/ul (1.6-7.5); NEUTROPHILS % 57.2 % (39.0-77.0); PLATELET COUNT 117 10^3/UL (140-415); RED BLOOD COUNT 4.29 10^6/ul (4.70-6.10); RED CELL DISTRIBUTION WIDTH 14.5 % (11.5-14.5); WHITE BLOOD COUNT 3.1 10^3/ul (4.8-10.8)
[2016-09-13 06:35] LABS: POTASSIUM 3.7 mmol/L (3.5-5.1)
[2016-09-13 06:36] LABS: ALBUMIN 3.3 g/dl (3.3-4.9); BILIRUBIN,INDIRECT 0.3 mg/dl (0-1.1); BILIRUBIN,TOTAL 0.3 mg/dl (0.2-1.3); CALCIUM 9.1 mg/dl (8.4-10.2); CHOL/HDL RATIO 7.5 RATIO; CREATININE 0.85 mg/dl (0.61-1.24); TOTAL PROTEIN 5.7 g/dl (6.1-8.1)
[2016-09-13] MEDS: INSULIN ASPART [NOVOLOG] 3 ML PEN SC SCH ×2 (08:00→12:00)
[2016-09-13] MEDS: PROPRANOLOL 20 MG TAB PO SCH ×2 (08:41→22:17)
[2016-09-13] MEDS ORDERED: HYDROmorphONE 1 MG/ML SYG IV STA (11:57)
[2016-09-13] MEDS: HYDROmorphONE 1 MG/ML SYG IV PRN ×3 (15:38→23:34)
[2016-09-13] MEDS ORDERED: BARIUM SULF 2% 450 ML BTL (BERRY SMOOTHIE) PO ONE (18:00)
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
[2016-09-13] MEDS ORDERED: QUETIAPINE 100 MG TAB PO SCH (21:00)
[2016-09-13] MEDS ORDERED: OCTREOTIDE 50 MCG INJ SC SCH (21:00)
[2016-09-13] MEDS ORDERED: OXCARBAZEPINE 300 MG TAB PO SCH (21:00)
[2016-09-13] MEDS: OCTREOTIDE 100 MCG INJ SC SCH (21:00)
[2016-09-14] VITALS (10 sets, daily range): BP systolic 103–150; BP diastolic 63–76; PULSE 71–92; RESP 18–20
[2016-09-14] MEDS: OCTREOTIDE 100 MCG INJ SC SCH ×4 (02:00→18:00)
[2016-09-14] MEDS: HYDROmorphONE 1 MG/ML SYG IV PRN ×5 (07:02→19:56)
[2016-09-14] MEDS ORDERED: NICOTINE (21 MG/24 HR) PATCH TRANSDERM SCH (09:00)
[2016-09-14] MEDS: DEXTROSE 5%-0.45% NACL 1,000 ML IV SCH ×2 (10:08→19:57)
[2016-09-14] MEDS: PROPRANOLOL 20 MG TAB PO SCH (10:10)
[2016-09-14 11:06] LABS: MAGNESIUM 1.9 mg/dl (1.7-2.5); PHOSPHORUS 2.9 mg/dl (2.5-4.9)
[2016-09-14 11:08] LABS: CALCIUM 8.9 mg/dl (8.4-10.2); CREATININE 0.75 mg/dl (0.61-1.24); POTASSIUM 3.8 mmol/L (3.5-5.1)
--- NOTE | 2016-09-14 14:55 | PN ---
Date/Time of Note Date/Time of Note DATE: 09/14/16 TIME: 14:40 Assessment/Plan VTE Prophylaxis VTE Prophylaxis Intervention: SCD's Lines/Catheters IV Catheter Type (from Nrsg): Peripheral IV Assessment/Plan Assessment/Plan 40-year-old male with: 1. Severe hypoglycemia with known history of insulinoma status post distal pancreatectomy a few years ago followed by dissection years later, patient over the past 3-5 months has been having more hypoglycemic episodes that he is unable to control. He was seen here at [facility] a month ago with specific plan of care patient left AGAINST MEDICAL ADVICE at that time. I had long discussion with him he is now ready to follow recommendations. Decreased D5 drip to 75 cc/hr Continue octreotide 100 mcg SC Q6hrs and will need to approved through insurance. Regular diet. Based on previous recommendation from Dr. Apodaca, patient needs to be transferred to a facility capable of doing an endoscopic ultrasound as the patient is unable to have MRIs or CT with contrast due to his allergies and claustrophobia. He also may need resection of pancreatic mass is found on ultrasound. I have communicated this to the patient' s IPA as any transfer will need to be arranged through his IPA which is [facility]. 2. Severe epigastric abdominal pain: patient refused CAT scan of abdomen and pelvis with p.o. contrast Pain much improved per patient Plan for EUS at another facility [facility]. 3. Known nephrolithiasis and many calcium crystals in urine. Intact PTH pending. 4. Alcohol use: Patient is encouraged to quit given his current issues with insulinomas 5. Tobacco use: Patient is advised also quit he is a heavy smoker. Nicotine patch ordered Prophylaxis: Patient ambulatory, tolerating p.o. Disposition: Titrating D5 drip down, on SC octreotide, d/c plan with close outpatient continued work up for insulinomas if able to wean off of D5 gtt. Subjective 24 Hr Interval Summary Free Text/Dictation Patient doing OK and BG maintained so far, now on octreotide and D5 gtt being tapered down as BG maintaining in 110's Exam/Review of Systems Vital Signs Vitals Vital Signs Date Time Temp Pulse Resp B/P Pulse Ox O2 Delivery O2 Flow Rate FiO2 09/14/16 12:10 92 09/14/16 11:45 98.1 20 103/63 96 09/13/16 14:30 Room Air Intake and Output 09/13/16 09/13/16 09/14/16 15:00 23:00 07:00 Intake Total 1000 ml 500 ml Balance 1000 ml 500 ml Exam Constitutional: alert, oriented, well developed Respiratory: clear to auscultation, normal air movement Cardiovascular: nl pulses, regular rate and rhythm Gastrointestinal: non-tender, soft Musculoskeletal: nl extremities to inspection Extremities: normal pulses, other (no edema, clubbing or cyanosis) 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, nl mental status, nl speech, nl strength Results Result Diagram: 09/13/16 0548 09/14/16 1013 Results 24 hrs Laboratory Tests Test 09/13/16 14:42 09/13/16 17:36 09/14/16 09:59 09/14/16 10:13 Bedside Glucose 148 148 144 Sodium Level 144 Potassium Level 3.8 Chloride Level 105 Carbon Dioxide Level 27 Anion Gap 16 Blood Urea Nitrogen 11 Creatinine 0.75 Glucose Level 115 # Calcium Level 8.9 Phosphorus Level 2.9 Magnesium Level 1.9 Test 09/14/16 12:31 Bedside Glucose 174 Medications Medications Current Medications Dextrose/Sodium Chloride (D5-1/2ns) 1,000 ml @ 75 mls/hr [id number] IV Last administered on 09/14/16 10:08; Admin Dose 125 MLS/HR; Start 09/12/16 at 21:30 Oxcarbazepine (Trileptal) 300 mg QHS PO ; Start 09/13/16 at 21:00 Propranolol HCl (Inderal) 20 mg BID PO Last administered on 09/14/16 10:10; Admin Dose 20 MG; Start 09/13/16 at 09:00 Quetiapine Fumarate (Seroquel) 300 mg HS PO Last administered on 09/13/16 22: 17; Admin Dose 300 MG; Start 09/13/16 at 21:00 Miscellaneous Information 1 ea NOTE XX ; Start 09/13/16 at 02:30 Glucose (Glutose) 15 gm Q15M PRN PO DECREASED GLUCOSE; Start 09/13/16 at 02:30 Glucose (Glutose) 22.5 gm Q15M PRN PO DECREASED GLUCOSE; Start 09/13/16 at 02: 30 Dextrose (D50w Syringe) 25 ml Q15M PRN IV DECREASED GLUCOSE Last administered on 09/13/16 05:52; Admin Dose 25 ML; Start 09/13/16 at 02:30 Dextrose (D50w Syringe) 50 ml Q15M PRN IV DECREASED GLUCOSE; Start 09/13/16 at 02:30 Glucagon (Glucagen) 1 mg Q15M PRN IM DECREASED GLUCOSE; Start 09/13/16 at 02:30 Glucose (Glutose) 15 gm Q15M PRN BUCCAL DECREASED GLUCOSE; Start 09/13/16 at 02 :30 Hydromorphone HCl (Dilaudid) 0.5 mg Q3H PRN IV pain Last administered on 13:51; Admin Dose 0.5 MG; Start 09/13/16 at 13:00 Nicotine (Nicoderm 21 Mg/ 24hr) 1 patch DAILY TRANSDERM ; Start 09/14/16 at 09: 00 Octreotide Acetate (Sandostatin) 100 mcg Q6 SC Last administered on 09/14/16 12:43; Admin Dose 100 MCG; Start 09/13/16 at 21:00 JULISA SANTO Sep 14, 2016 14:50
[2016-09-14] MEDS ORDERED: ONDANSETRON 4 MG INJ ONE (18:01)
[2016-09-14] MEDS ORDERED: HYDROmorphONE 1 MG/ML SYG ONE (18:01)
== END 2016-09-14 20:25 | disposition left against medical advice (07) | DRG 641 ==
LOC: E/R 19:55 → TEL 09-13 01:45
PROVIDERS: ADMIT Internal Medicine; ATTEND Internal Medicine
DX: E16.2 Hypoglycemia, unspecified (principal); N20.0 Calculus of kidney; R10.13 Epigastric pain; F10.10 Alcohol abuse, uncomplicated; F17.200 Nicotine dependence, unspecified, uncomplicated
CPT/HCPCS: 80048; 80053; 80061; 80076; 81001; 81003; 82962; 83036; 83690; 83735; 84100; 85025; 96361; 96374; 96375; 96376; J1170; J1815; J2354; J2405; J7042

== ENCOUNTER 2017-01-03 21:08 | Inpatient (IN) | payer OTHER ==
[~2017-01-03] VITALS: Ht 170.2 cm; Wt 78.6 kg
[~2017-01-03 21:08] MED LIST changes: -ALBU2.5V3 NEB; -ALBU8.5H3 INH; +HYDR-902 PO; +OXCA300T41 PO; +PROP20TA4 PO; +QUET300T13 PO; +ZOLP5TAB7 PO; -[UNRECOGNIZED DRUG - OTHER] PO; -albuterol
[2017-01-03 21:19] VITALS: Ht 170.2 cm; Wt 78.6 kg
[2017-01-03] MEDS ORDERED: DEXTROSE 50% 50 ML SYRINGE ONE ×2 (21:35→21:46)
[2017-01-03] MEDS ORDERED: DEXTROSE 10% 1,000 ML IV STA (22:05)
[2017-01-03] MEDS ORDERED: DEXTROSE 50% 50 ML SYRINGE IV STA (22:05)
[2017-01-03] MEDS ORDERED: OCTREOTIDE 50 MCG INJ SC STA (22:05)
[2017-01-03] MEDS ORDERED: morphine 2 MG INJ ONE (22:21)
[2017-01-03] MEDS ORDERED: ONDANSETRON 4 MG INJ ONE (22:21)
[2017-01-03 22:31] LABS: BASOPHILS % 0.3 % (0.0-2.0); EOSINOPHILS % 0.6 % (0.0-7.0); HEMATOCRIT 41.1 % (42.0-52.0); HEMOGLOBIN 14.3 g/dl (14.0-18.0); LYMPHOCYTES # 1.2 10^3/ul (0.8-2.9); LYMPHOCYTES % 33.1 % (15.0-51.0); MEAN CORPUSCULAR HGB CONC 34.8 g/dl (32.0-37.0); MEAN CORPUSCULAR VOLUME 80.6 fl (82.0-101.0); MEAN PLATELET VOLUME 10.8 fl (7.4-10.4); MONOCYTE # 0.1 10^3/ul (0.3-0.9); MONOCYTES % 1.9 % (0.0-11.0); NEUTROPHIL # 2.3 10^3/ul (1.6-7.5); NEUTROPHILS % 63.8 % (39.0-77.0); PLATELET COUNT 117 10^3/UL (140-415); WHITE BLOOD COUNT 3.6 10^3/ul (4.8-10.8)
[2017-01-03] MEDS ORDERED: ONDANSETRON 4 MG INJ IV ONE (22:31)
[2017-01-03 22:34] LABS: ALBUMIN 4.7 g/dl (3.3-4.9); ALBUMIN/GLOBULIN RATIO 1.38; BILIRUBIN,INDIRECT 0.1 mg/dl (0-1.1); BILIRUBIN,TOTAL 0.1 mg/dl (0.2-1.3); CALCIUM 9.7 mg/dl (8.4-10.2); CREATININE 1.13 mg/dl (0.61-1.24); POTASSIUM 3.2 mmol/L (3.5-5.1); TOTAL PROTEIN 8.1 g/dl (6.1-8.1)
[2017-01-03] MEDS ORDERED: DEXTROSE 50% 50 ML SYRINGE IV ONE (23:00)
[2017-01-03] MEDS ORDERED: HYDROmorphONE 0.5 MG/0.5 ML SYG IV STA (23:26)
--- NOTE | 2017-01-03 23:28 | ERD ---
ER Documentation Chief Complaint Chief Complaint HYPOGLYCEMIC EVENT AT HOME, GLYCOGEN SHOT GIVEN BY PT, FEELS LOW AGAIN HPI 41-year-old male with a history of insulinomas presenting to the ER complaining of hypoglycemia. He states he felt hypoglycemic while at his friend's house. His blood sugar was in the 30s. He gave himself a shot of glucagon and came to the ER. He states his insulinomas are not being treated due to insurance reasons. Currently he also complains of upper abdominal pain for the past several days as well associated with nausea but no vomiting or diarrhea. He denies any associated fevers or chills. ROS All systems reviewed and are negative except as per history of present illness. Medications Home Meds Reported Medications Zolpidem Tartrate* (Zolpidem Tartrate*) 5 Mg Tablet, 5 MG PO QHS Y for INSOMNIA , #30 TAB 09/13/16 Quetiapine Fumarate* (Seroquel*) 300 Mg Tablet, 300 MG PO HS, TAB 09/13/16 Oxcarbazepine* (Oxcarbazepine*) 300 Mg Tablet, 300 MG PO QHS, TAB 09/13/16 Propranolol Hcl* (Propranolol Hcl*) 20 Mg Tablet, 20 MG PO BID, TAB 09/13/16 Discontinued Reported Medications Hydrocodone/Acetaminophen (Liberty 10-325 Tablet) 1 Each Tablet, 1 EACH PO, TAB 09/13/16 Allergies Allergies: Coded Allergies: iodine (Unverified Allergy, Intermediate, 09/13/16) morphine (Unverified Allergy, Intermediate, rashes/itchiness, 09/13/16) fluoxetine (Unverified Allergy, Unknown, 09/13/16) ketorolac (Unverified Allergy, Unknown, 09/13/16) meperidine (Unverified Allergy, Unknown, 09/13/16) sulfamethoxazole (Unverified Allergy, Unknown, 09/13/16) trimethoprim (Unverified Allergy, Unknown, 09/13/16) Uncoded Allergies: IV CONTRAST (Allergy, Unknown, 06/24/13) NONE (Allergy, Unknown, 08/11/16) PMhx/Soc History of Surgery: Yes (removal of pancreatic tail- 2005, hernia repairx2- 2007,2009, cholecys-2009) Anesthesia Reaction: No Hx Neurological Disorder: No Hx Respiratory Disorders: Yes (asthma ) Hx Cardiac Disorders: No Hx Psychiatric Problems: No Hx Miscellaneous Medical Probl: No Hx Alcohol Use: Yes (casually) Hx Substance Use: Yes Hx Tobacco Use: Yes (1.5 packs per day) Smoking Status: Current every day smoker FmHx Family History: No diabetes Physical Exam Vitals Vital Signs Date Time Temp Pulse Resp B/P Pulse Ox O2 Delivery O2 Flow Rate FiO2 01/03/17 23:12 97.9 103 20 120/81 100 Room Air 01/03/17 21:19 99.1 92 18 143/84 98 Physical Exam Const: well appearing no distress, nontoxic Head: Atraumatic Eyes: Normal Conjunctiva ENT: Normal External Ears, Nose and Mouth. Neck: Full range of motion..~ No meningismus. Resp: Clear to auscultation bilaterally Cardio: Regular rate and rhythm, no murmurs Abd: Soft, diffuse upper abdominal TTP, non distended. Normal bowel sounds Skin: No petechiae or rashes. Multiple tattoos Back: No midline or flank tenderness Ext: No cyanosis, or edema Neur: Awake and alert, oriented x 3, following commands, GCS15. 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 grossly intact Psych: Normal Mood and Affect Result Diagram: 01/03/17213401/03/172134 Results 24 hrs Laboratory Tests Test 01/03/17 21:27 01/03/17 21:35 01/03/17 21:43 01/03/17 22:05 Bedside Glucose 41mg/dL 180mg/dL 54mg/dL White Blood Count 3.610^3/ul Red Blood Count 5.1010^6/ul Hemoglobin 14.3g/dl Hematocrit 41.1% Mean Corpuscular Volume 80.6fl Mean Corpuscular Hemoglobin 28.0pg Mean Corpuscular Hemoglobin Concent 34.8g/dl Red Cell Distribution Width 13.0% Platelet Count 66671^3/UL Mean Platelet Volume 10.8fl Neutrophils % 63.8% Lymphocytes % 33.1% Monocytes % 1.9% Eosinophils % 0.6% Basophils % 0.3% Nucleated Red Blood Cells % 0.0/100WBC Neutrophils # 2.310^3/ul Lymphocytes # 1.210^3/ul Monocytes # 0.110^3/ul Eosinophils # 0.010^3/ul Basophils # 0.010^3/ul Nucleated Red Blood Cells # 0.010^3/ul Sodium Level 148mmol/L Potassium Level 3.2mmol/L Chloride Level 110mmol/L Carbon Dioxide Level 24mmol/L Anion Gap 17 Blood Urea Nitrogen 17mg/dl Creatinine 1.13mg/dl Glucose Level 32mg/dl Calcium Level 9.7mg/dl Total Bilirubin 0.1mg/dl Direct Bilirubin 0.00mg/dl Indirect Bilirubin 0.1mg/dl Aspartate Amino Transf (AST/SGOT) 82IU/L Alanine Aminotransferase (ALT/SGPT) 90IU/L Alkaline Phosphatase 189IU/L Total Protein 8.1g/dl Albumin 4.7g/dl Globulin 3.40g/dl Albumin/Globulin Ratio 1.38 Lipase 476U/L Test 01/03/17 22:35 01/03/17 22:54 01/03/17 23:10 01/03/17 23:29 Bedside Glucose 89mg/dL 221mg/dL 96mg/dL 53mg/dL Test 01/03/17 23:49 01/04/17 00:17 Bedside Glucose 107mg/dL 55mg/dL Current Medications Medications (Trade) Dose Ordered Sig/Bhakti Route PRN Reason Start Time Stop Time Status Last Admin Dose Admin Dextrose (D50w Syringe) 50 ml STK-MED ONCE .ROUTE 01/03/17 21:35 01/03/17 21:36 DC Dextrose (D50w Syringe) 50 ml STK-MED ONCE .ROUTE 01/03/17 21:46 01/03/17 21:47 DC Dextrose 50 ml 50 ml ONCE STAT IV 01/03/17 22:05 01/03/17 22:08 DC 01/03/17 22:11 Dextrose (D10w) 1,000 ml @ 100 mls/hr Q10H STAT IV 01/03/17 22:05 01/03/17 23:45 DC 01/03/17 22:16 Octreotide Acetate (Sandostatin) 100 mcg ONCE STAT SC 01/03/17 22:05 01/03/17 22:08 DC 01/03/17 23:07 Ondansetron HCl (Zofran Inj) 4 mg STK-MED ONCE .ROUTE 01/03/17 22:21 01/03/17 22:22 DC Morphine Sulfate (morphine) 2 mg STK-MED ONCE .ROUTE 01/03/17 22:21 01/03/17 22:22 DC Ondansetron HCl (Zofran Inj) 4 mg ONCE ONCE IV 01/03/17 22:31 01/03/17 22:32 DC 01/03/17 22:32 Dextrose (D50w Syringe) 50 ml ONCE ONCE IV 01/03/17 23:00 01/03/17 23:01 DC 01/03/17 23:01 Hydromorphone HCl (Dilaudid) 0.5 mg ONCE STAT IV 01/03/17 23:26 01/03/17 23:27 DC 01/03/17 23:38 Dextrose 50 ml 50 ml PRN PRN IV BS<70 01/04/17 00:00 01/03/17 23:35 Dextrose 1,000 ml @ 250 mls/hr Q4H IV 01/04/17 00:00 01/03/17 23:53 Octreotide Acetate/Sodium Chloride (Sandostatin/NS) 50 ml @ 5 mls/hr ONCE STAT IV 01/03/17 23:40 01/04/17 09:39 01/04/17 00:20 IV Flush (NS 3 ml) 3 ml PER PROTOCOL IV 01/04/17 01:00 Ondansetron HCl (Zofran Inj) 4 mg Q6H PRN IV NAUSEA AND/OR VOMITING 01/04/17 01:00 Acetaminophen (Tylenol Tab) 650 mg Q6H PRN PO PAIN LEVEL 1-3 OR FEVER 01/04/17 01:00 Docusate Sodium (Colace) 100 mg Q12H PRN PO CONSTIPATION 01/04/17 01:00 Magnesium Hydroxide (Milk Of Mag) 30 ml DAILY PRN PO CONSTIPATION 01/04/17 01:00 UNV Bisacodyl (Dulcolax Supp) 10 mg DAILY PRN ND CONSTIPATION 01/04/17 01:00 Famotidine (Pepcid) 20 mg Q12 PO 01/04/17 09:00 Oxcarbazepine (Trileptal) 300 mg QHS PO 01/04/17 21:00 UNV Propranolol HCl (Inderal) 20 mg BID PO 01/04/17 09:00 UNV Quetiapine Fumarate (Seroquel) 300 mg HS PO 01/04/17 21:00 UNV Zolpidem Tartrate 5 mg 5 mg QHS PRN PO INSOMNIA 11/15/17 01:00 UNV Dextrose (D10w) 1,000 ml @ 100 mls/hr Q10H IV 01/04/17 01:00 Potassium Chloride (Klor-Con 20) 40 meq ONCE ONCE PO 01/04/17 00:47 01/04/17 00:48 DC Acetaminophen/ Hydrocodone Bitart (Liberty (5/325)) 1 tab Q4H PRN PO PAIN LEVEL 1-5 01/04/17 01:00 Acetaminophen/ Hydrocodone Bitart (Liberty (5/325)) 2 tab Q4H PRN PO PAIN LEVEL 6-10 01/04/17 01:00 Miscellaneous Information (* Miscellaneous Pharmacy Order) HYPOGLYCEMIA PROTOCOL w... ONCE ONCE XX 01/04/17 01:00 01/04/17 01:01 DC Miscellaneous Information (* Miscellaneous Pharmacy Order) Discontinue all previ... ONCE ONCE XX 01/04/17 01:00 01/04/17 01:01 DC Miscellaneous Information 1 ea NOTE XX 01/04/17 01:00 Glucose (Glutose) 15 gm Q15M PRN PO DECREASED GLUCOSE 01/04/17 01:00 Glucose (Glutose) 22.5 gm Q15M PRN PO DECREASED GLUCOSE 01/04/17 01:00 Dextrose (D50w Syringe) 25 ml Q15M PRN IV DECREASED GLUCOSE 01/04/17 01:00 Dextrose (D50w Syringe) 50 ml Q15M PRN IV DECREASED GLUCOSE 01/04/17 01:00 Glucagon (Glucagen) 1 mg Q15M PRN IM DECREASED GLUCOSE 01/04/17 01:00 Glucose (Glutose) 15 gm Q15M PRN BUCCAL DECREASED GLUCOSE 01/04/17 01:00 Procedures/MDM EMERGENT LABS AND DIAGNOSTIC STUDIES: Lab Results above were reviewed and interpreted by me. CBC: Leukopenia, thrombocytopenia CMP: Hypernatremia, hypokalemia, Severe hypoglycemia. Elevated liver enzymes and lipase. Initial Nursing notes reviewed. Previous Medical Records requested via the Electronic Health Record. EMERGENCY DEPARTMENT COURSE / MEDICAL DECISION MAKING: Patient is presenting with recurrent hypoglycemic events. Vitals are stable. He was treated in the ED initially with D50 for recurrent hypoglycemia after injecting himself with glucagon prior to arrival. He states that his blood sugar had gone up into the 200s. He was started on a D10 drip and given octreotide 100 mcg subQ. However he continued to have persistent hypoglycemic episodes. I increased his D10 drip rate to 250 mls per hour. I consulted the ic design engineer testing consultant, Dr. Eli, who recommended an octreotide drip, but has no other recommendations. Octreotide infusion was started. I spoke with the hospitalist on-call, who accepted the patient for admission to the ICU. Critical Care Time: 40 minutes Treatments/Evaluations: Close monitoring and treatment of unstable vital signs, cardiorespiratory, and neurologic status, while maintaining tight balance of fluid, respiratory, and cardiac interventions. This time includes discussing the case with the patient and the patients family. This time does not include all procedures stated elsewhere in this record. This time also includes reviewing old records, labs and radiological studies. This time includes examining and re-examining the patient. Additionally, this time also includes arranging care with admitting and consulting physicians. Accepting Care Team: Current data and ongoing care discussed. 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
[2017-01-03] MEDS ORDERED: OCTREOTIDE 500 MCG in SOD CHLORIDE 0.9% 49 ML IV STA (23:40)
[2017-01-03] MEDS: DEXTROSE 10% 1,000 ML IV SCH (23:53)
[2017-01-04] MEDS ORDERED: POTASSIUM CHLORIDE (SR) 20 MEQ TAB PO ONE (00:47)
[2017-01-04] MEDS ORDERED: DEXTROSE 50% 50 ML SYRINGE IV PRN ×3 (01:00)
[2017-01-04] MEDS ORDERED: GLUCOSE GEL 15 GRAM TUBE PO PRN ×2 (01:00)
[2017-01-04] MEDS ORDERED: NACL 0.9% 3 ML SYG IV SCH (01:00)
[2017-01-04] MEDS ORDERED: GLUCAGON 1 MG INJ IM PRN (01:00)
[2017-01-04] MEDS ORDERED: DOCUSATE SODIUM 100 MG CAP PO PRN (01:00)
[2017-01-04] MEDS ORDERED: GLUCOSE GEL 15 GRAM TUBE BUCCAL PRN (01:00)
[2017-01-04] MEDS ORDERED: ACETAMINOPHEN 325 MG TAB PO PRN (01:00)
[2017-01-04] MEDS ORDERED: HYDROCODONE/APAP (5/325) TAB PO PRN ×2 (01:00)
[2017-01-04] MEDS ORDERED: ONDANSETRON 4 MG INJ IV PRN (01:00)
[2017-01-04] MEDS ORDERED: MAGNESIUM HYDROXIDE 30ML CUP PO PRN (01:00)
[2017-01-04] MEDS ORDERED: BISACODYL 10 MG SUPP PR PRN (01:00)
[2017-01-04] MEDS ORDERED: HYDROmorphONE 1 MG/ML SYG IV STA (02:33)
[2017-01-04 03:37] LABS: ADD UMIC NO; UR ASCORBIC ACID NEGATIVE (NEGATIVE); UR BILIRUBIN (Dip) NEGATIVE (NEGATIVE); UR BLOOD (Dip) NEGATIVE (NEGATIVE); UR CLARITY CLEAR (CLEAR); UR COLOR YELLOW (YELLOW); UR GLUCOSE (Dip) 3+ mg/dL (NEGATIVE); UR KETONES (Dip) NEGATIVE (NEGATIVE); UR LEUKOCYTE ESTERASE (Dip) NEGATIVE Leu/ul (NEGATIVE); UR NITRITE (Dip) NEGATIVE (NEGATIVE); UR SPECIFIC GRAVITY (Dip) 1.013 (1.003-1.030); UR TOTAL PROTEIN (Dip) NEGATIVE (NEGATIVE); UR UROBILINOGEN (Dip) NEGATIVE (NEGATIVE)
[2017-01-04 04:06] LABS: BARBITURATES Negative (NEGATIVE); BENZODIAZEPINES Negative (NEGATIVE); CANNABINOIDS Negative (NEGATIVE); COCAINE Positive (NEGATIVE); OPIATES Positive (NEGATIVE)
[2017-01-04] MEDS: DEXTROSE 10% 1,000 ML IV SCH ×7 (04:22→21:00)
[2017-01-04 05:55] LABS: ABNORMAL IP MESSAGE 1; EOSINOPHILS % 0.3 % (0.0-7.0); HEMATOCRIT 35.7 % (42.0-52.0); HEMOGLOBIN 12.1 g/dl (14.0-18.0); LYMPHOCYTES # 0.8 10^3/ul (0.8-2.9); LYMPHOCYTES % 25.1 % (15.0-51.0); MEAN CORPUSCULAR HEMOGLOBIN 27.8 pg (29.0-33.0); MEAN CORPUSCULAR HGB CONC 33.9 g/dl (32.0-37.0); MEAN CORPUSCULAR VOLUME 82.1 fl (82.0-101.0); MEAN PLATELET VOLUME 10.3 fl (7.4-10.4); MONOCYTE # 0.3 10^3/ul (0.3-0.9); MONOCYTES % 10.6 % (0.0-11.0); NEUTROPHIL # 1.9 10^3/ul (1.6-7.5); NEUTROPHILS % 63.7 % (39.0-77.0); PLATELET COUNT 83 10^3/UL (140-415); POSITIVE DIFF @See below; RED BLOOD COUNT 4.35 10^6/ul (4.70-6.10); RED CELL DISTRIBUTION WIDTH 13.2 % (11.5-14.5)
[2017-01-04 06:14] LABS: AMYLASE 150 U/L (11-123)
[2017-01-04 06:46] LABS: ALBUMIN 3.9 g/dl (3.3-4.9); ALBUMIN/GLOBULIN RATIO 1.34; BILIRUBIN,INDIRECT 0.3 mg/dl (0-1.1); BILIRUBIN,TOTAL 0.3 mg/dl (0.2-1.3); CALCIUM 8.7 mg/dl (8.4-10.2); CREATININE 0.89 mg/dl (0.61-1.24); MAGNESIUM 1.9 mg/dl (1.7-2.5); POTASSIUM 3.5 mmol/L (3.5-5.1); TOTAL PROTEIN 6.8 g/dl (6.1-8.1)
[2017-01-04 06:52] VITALS: TEMP 98.9
[2017-01-04] MEDS ORDERED: FAMOTIDINE 20 MG TAB PO SCH (09:00)
[2017-01-04] MEDS: HYDROmorphONE 0.5 MG/0.5 ML SYG IV PRN ×4 (12:20→23:00)
[2017-01-04 12:21] LABS: COCAINE Positive (NEGATIVE)
[2017-01-04 12:22] LABS: BARBITURATES Negative (NEGATIVE); BENZODIAZEPINES Negative (NEGATIVE); CANNABINOIDS Negative (NEGATIVE); OPIATES Positive (NEGATIVE)
[2017-01-04 15:23] VITALS: PULSE 67
[2017-01-04] MEDS: PROPRANOLOL 20 MG TAB PO SCH ×2 (15:35→21:45)
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
[2017-01-04 16:05] VITALS: PULSE 87
[2017-01-04] MEDS: OCTREOTIDE 100 MCG INJ SC SCH ×3 (17:00→21:57)
[2017-01-04] MEDS ORDERED: OCTREOTIDE 50 MCG INJ SC SCH (17:00)
[2017-01-04] MEDS: ACCU-CHEK XX SCH ×2 (17:00→21:36)
[2017-01-04 18:30] VITALS: BP 131/79; PULSE 90; RESP 18
--- NOTE | 2017-01-04 19:04 | CONS ---
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 This was a dose that was effective for pt. last visit and would continue it. If pt. develops nausea would treat w / zofran (2) Insulinoma Status: Chronic Comment: Pt. NEEDS SURGICAL EVALUATION AND RESECTION OF INSULINOMA!!! It should be done EVELIA. Rec. primary team attempt to get auth from insurer to have surgical procedure. Consultation Date/Type/Reason Admit Date/Time Jan 04, 2017 at 00:30 Date of Consultation: Jan 04, 2017 Type of Consultation: Endocrinology Reason for Consultation Hypoglycemia Referring Provider: JULISA SANTO Hx of Present Illness 41 y/o H M w/ h/o insulinoma s/p resection 9 y. ago now with recurrence, also w / asthma and psych disease NOS. Pt. seen here for hypoglycemia 5 months ago. At that time was stabilized on sq octreotide. Pt. reports since d/c has tried in [facility] to receive care from a surgeon but insurance refuses to authorize surgeon or surgical procedure. Pt. was authorized for home injections of octreotide and these were effective. While taking them, was not having hypoglycemia. However, developed nausea from octreotide and decided to self-d/ c med while awaiting Rx for lower dosage. Since being off of it the last 2-3 weeks hypoglycemic episodes have recurred bringing pt. back to ER. Constitutional: improved, no complaints Eyes: no complaints ENT: no complaints Respiratory: no complaints Cardiovascular: no complaints Gastrointestinal: pain (boring through to the back) Genitourinary: no complaints Musculoskeletal: no complaints Skin: no complaints Neurologic: no complaints Lymphatic: no complaints Psychological: no complaints Past Medical History Medical History: gallstones, other (insulinoma, asthma, psych disease) Past Surgical History Past Surgical Hx: cholecystectomy, other (partial pancreatectomy, hernia repair x 2) Family History Significant Family History: diabetes (maternal grandparents) Social History b. 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 [employer], , remarried, 2 children Alcohol Use: occasionally (Patient binge drinks and drink heavily until he has no recollection of the events are what is going on around him) Smoking Status: Current every day smoker (2 packs per day 20 years however he quit for 9 years and then restarted 8 months ago) Drug Use: cocaine Exam/Review of Systems Vital Signs Vitals VS - Last 72 Hours, by Label Date Time Temp Pulse Resp B/P Pulse Ox O2 Delivery O2 Flow Rate FiO2 01/04/17 16:05 87 01/04/17 15:23 67 01/04/17 13:03 64 16 115/73 99 Room Air 01/04/17 11:07 75 12 125/88 99 Room Air 01/04/17 09:40 66 16 111/82 98 Room Air 01/04/17 06:52 98.9 60 99/65 98 Room Air 01/04/17 04:59 66 16 115/72 97 Room Air 01/04/17 03:00 81 15 110/71 98 Room Air 01/04/17 01:00 88 17 119/82 98 Room Air 01/03/17 23:12 97.9 103 20 120/81 100 Room Air 01/03/17 21:19 99.1 92 18 143/84 98 Vital Signs Date Time Temp Pulse Resp B/P Pulse Ox O2 Delivery O2 Flow Rate FiO2 01/04/17 16:05 87 01/04/17 13:03 16 115/73 99 Room Air 01/04/17 06:52 98.9 Exam Constitutional: alert, oriented, well developed Psych: nl mood/affect, no complaints Eyes: EOMI, PERRL, nl conjunctiva, nl lids, nl sclera ENMT: No mucosa pink and moist, No nl external ears & nose, No nl lips & teeth (teeth broken) Neck: non-tender, supple, No bruits, No masses, No thyromegaly Respiratory: clear to auscultation, normal air movement Cardiovascular: nl pulses, regular rate and rhythm, No edema, No murmurs/extra sounds, No rub Gastrointestinal: bowel sounds, nl liver, spleen, non-tender, soft, No mass, No rebound or guarding Musculoskeletal: nl extremities to inspection Extremities: normal pulses, No clubbing, No cyanosis, No edema Neurological: 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 II-XII intact, nl mental status, nl speech, nl strength Additional Comments Bedside Glucose - 72 Hours Test 01/03/17 21:27 01/03/17 21:43 01/03/17 22:05 01/03/17 22:35 Bedside Glucose 41mg/dL (70-220) *L 180mg/dL (70-220) 54mg/dL (70-220) L 89mg/dL (70-220) Test 01/03/17 22:54 01/03/17 23:10 01/03/17 23:29 01/03/17 23:49 Bedside Glucose 221mg/dL (70-220) H 96mg/dL (70-220) 53mg/dL (70-220) L 107mg/dL (70-220) Test 01/04/17 00:17 01/04/17 01:36 01/04/17 02:26 01/04/17 04:18 Bedside Glucose 55mg/dL (70-220) L 77mg/dL (70-220) 126mg/dL (70-220) 56mg/dL (70-220) L Test 01/04/17 04:36 01/04/17 05:23 01/04/17 06:44 01/04/17 07:50 Bedside Glucose 221mg/dL (70-220) H 123mg/dL (70-220) 76mg/dL (70-220) 89mg/dL (70-220) Test 01/04/17 09:28 01/04/17 10:41 01/04/17 14:23 01/04/17 16:13 Bedside Glucose 97mg/dL (70-220) 149mg/dL (70-220) 116mg/dL (70-220) 112mg/dL (70-220) Results Result Diagram: 01/04/17 0524 01/04/17 0523 Results 24 hrs Laboratory Tests Test 01/03/17 21:27 01/03/17 21:35 01/03/17 21:43 01/03/17 22:05 Bedside Glucose 41 *L 180 54 L White Blood Count 3.6 L Red Blood Count 5.10 Hemoglobin 14.3 # Hematocrit 41.1 L Mean Corpuscular Volume 80.6 L Mean Corpuscular Hemoglobin 28.0 L Mean Corpuscular Hemoglobin Concent 34.8 Red Cell Distribution Width 13.0 Platelet Count 117 L Mean Platelet Volume 10.8 H Neutrophils % 63.8 Lymphocytes % 33.1 Monocytes % 1.9 Eosinophils % 0.6 Basophils % 0.3 Nucleated Red Blood Cells % 0.0 Neutrophils # 2.3 Lymphocytes # 1.2 Monocytes # 0.1 L Eosinophils # 0.0 Basophils # 0.0 Nucleated Red Blood Cells # 0.0 Sodium Level 148 H Potassium Level 3.2 L Chloride Level 110 Carbon Dioxide Level 24 Anion Gap 17 H Blood Urea Nitrogen 17 Creatinine 1.13 Glucose Level 32 *L Calcium Level 9.7 Total Bilirubin 0.1 L Direct Bilirubin 0.00 Indirect Bilirubin 0.1 Aspartate Amino Transf (AST/SGOT) 82 H Alanine Aminotransferase (ALT/SGPT) 90 H Alkaline Phosphatase 189 H Total Protein 8.1 Albumin 4.7 Globulin 3.40 H Albumin/Globulin Ratio 1.38 Lipase 476 H Test 01/03/17 22:35 01/03/17 22:54 01/03/17 23:10 01/03/17 23:29 Bedside Glucose 89 221 H 96 53 L Test 01/03/17 23:49 01/04/17 00:17 01/04/17 01:36 01/04/17 02:00 Bedside Glucose 107 55 L 77 Urine Color YELLOW Urine Clarity CLEAR Urine pH 6.0 Urine Specific [place] 1.013 Urine Ketones NEGATIVE Urine Nitrite NEGATIVE Urine Bilirubin NEGATIVE Urine Urobilinogen NEGATIVE Urine Leukocyte Esterase NEGATIVE Urine Hemoglobin NEGATIVE Urine Glucose 3+ H Urine Total Protein NEGATIVE Urine Opiates Screen Positive Urine Barbiturates Negative Urine Amphetamines Screen Negative Urine Benzodiazepines Screen Negative Urine Cocaine Screen Positive Urine Cannabinoids Negative Test 01/04/17 02:26 01/04/17 04:18 01/04/17 04:36 01/04/17 05:23 Bedside Glucose 126 56 L 221 H 123 Sodium Level 140 Potassium Level 3.5 Chloride Level 106 Carbon Dioxide Level 25 Anion Gap 13 Blood Urea Nitrogen 12 Creatinine 0.89 Glucose Level 122 # Calcium Level 8.7 Magnesium Level 1.9 Total Bilirubin 0.3 Direct Bilirubin 0.00 Indirect Bilirubin 0.3 Aspartate Amino Transf (AST/SGOT) 322 #H Alanine Aminotransferase (ALT/SGPT) 243 H Alkaline Phosphatase 171 H Total Protein 6.8 # Albumin 3.9 Globulin 2.90 Albumin/Globulin Ratio 1.34 Test 01/04/17 05:24 01/04/17 06:44 01/04/17 07:50 01/04/17 09:28 White Blood Count 3.0 L Red Blood Count 4.35 L Hemoglobin 12.1 L Hematocrit 35.7 L Mean Corpuscular Volume 82.1 Mean Corpuscular Hemoglobin 27.8 L Mean Corpuscular Hemoglobin Concent 33.9 Red Cell Distribution Width 13.2 Platelet Count 83 #L Mean Platelet Volume 10.3 Neutrophils % 63.7 Lymphocytes % 25.1 Monocytes % 10.6 Eosinophils % 0.3 Basophils % 0.0 Nucleated Red Blood Cells % 0.0 Neutrophils # 1.9 Lymphocytes # 0.8 Monocytes # 0.3 Eosinophils # 0.0 Basophils # 0.0 Nucleated Red Blood Cells # 0.0 Amylase Level 150 H Lipase 902 H Bedside Glucose 76 89 97 Test 01/04/17 10:41 01/04/17 11:47 01/04/17 14:23 01/04/17 16:13 Bedside Glucose 149 116 112 Urine Opiates Screen Positive Urine Barbiturates Negative Urine Amphetamines Screen Negative Urine Benzodiazepines Screen Negative Urine Cocaine Screen Positive Urine Cannabinoids Negative Medications Medications Current Medications Dextrose 50 ml 50 ml PRN PRN IV BS<70 Last administered on 01/03/17 23:35; Admin Dose 50 ML; Start 01/04/17 at 00:00 Dextrose (D10w) 1,000 ml @ 250 mls/hr Q4H IV Last administered on 01/04/17 04:22; Admin Dose 250 MLS/HR; Start 01/04/17 at 00:00 Oxcarbazepine (Trileptal) 300 mg QHS PO ; Start 01/04/17 at 21:00 Propranolol HCl (Inderal) 20 mg BID PO ; Start 01/04/17 at 09:00 Quetiapine Fumarate (Seroquel) 300 mg HS PO ; Start 01/04/17 at 21:00 Zolpidem Tartrate 5 mg 5 mg QHS PRN PO INSOMNIA; Start 01/04/17 at 01:00 Dextrose (D10w) 1,000 ml @ 100 mls/hr Q10H IV Last administered on 01/04/17 06:30; Admin Dose 100 MLS/HR; Start 01/04/17 at 01:00 Acetaminophen/ Hydrocodone Bitart ([place] (5/325)) 1 tab Q4H PRN PO PAIN LEVEL 1 -5; Start 01/04/17 at 01:00 Acetaminophen/ Hydrocodone Bitart ([place] (5/325)) 2 tab Q4H PRN PO PAIN LEVEL 6 -10 Last administered on 01/04/17 01:34; Admin Dose 2 TAB; Start 01/04/17 at 01:00 Miscellaneous Information 1 ea NOTE XX ; Start 01/04/17 at 01:00 Glucose (Glutose) 15 gm Q15M PRN PO DECREASED GLUCOSE; Start 01/04/17 at 01:00 Glucose (Glutose) 22.5 gm Q15M PRN PO DECREASED GLUCOSE; Start 01/04/17 at 01: 00 Dextrose (D50w Syringe) 25 ml Q15M PRN IV DECREASED GLUCOSE; Start 01/04/17 at 01:00 Dextrose (D50w Syringe) 50 ml Q15M PRN IV DECREASED GLUCOSE Last administered on 01/04/17 04:22; Admin Dose 50 ML; Start 01/04/17 at 01:00 Glucagon (Glucagen) 1 mg Q15M PRN IM DECREASED GLUCOSE; Start 01/04/17 at 01: 00 Glucose (Glutose) 15 gm Q15M PRN BUCCAL DECREASED GLUCOSE; Start 01/04/17 at 01:00 Hydromorphone HCl (Dilaudid) 0.5 mg Q3H PRN IV PAIN Last administered on 15:28; Admin Dose 0.5 MG; Start 01/04/17 at 11:00 Diagnostic Test (Pha) (Accu-Chek) 1 ea Q4 XX ; Start 01/04/17 at 17:00 Octreotide Acetate (Sandostatin) 300 mcg QID SC ; Start 01/04/17 at 17:00 EUGENE DAN MD Jan 04, 2017 19:04
[2017-01-04] MEDS ORDERED: HYDROmorphONE 1 MG/ML SYG ONE ×2 (19:11→22:26)
[2017-01-04 20:01] VITALS: PULSE 100
[2017-01-04] MEDS: QUETIAPINE 100 MG TAB PO SCH (21:48)
[2017-01-04] MEDS: OXCARBAZEPINE 300 MG TAB PO SCH (21:50)
[2017-01-04] MEDS ORDERED: ONDANSETRON 4 MG INJ ONE (22:14)
[2017-01-04 23:00] VITALS: BP 133/82; RESP 16
[2017-01-04] MEDS: ZOLPIDEM 5 MG TAB PO PRN (23:00)
[2017-01-05] VITALS (11 sets, daily range): BP systolic 112–132; BP diastolic 62–81; PULSE 65–90; RESP 18–21
[2017-01-05] MEDS ORDERED: HYDROmorphONE 1 MG/ML SYG ONE ×3 (00:51→09:27)
[2017-01-05] MEDS: ACCU-CHEK XX SCH ×6 (01:00→21:00)
[2017-01-05] MEDS: HYDROmorphONE 0.5 MG/0.5 ML SYG IV PRN ×7 (01:45→22:01)
[2017-01-05 05:38] LABS: BASOPHILS % 0.3 % (0.0-2.0); EOSINOPHILS # 0.1 10^3/ul (0.0-0.5); EOSINOPHILS % 1.8 % (0.0-7.0); HEMATOCRIT 37.2 % (42.0-52.0); HEMOGLOBIN 12.7 g/dl (14.0-18.0); LYMPHOCYTES # 1.3 10^3/ul (0.8-2.9); LYMPHOCYTES % 38.5 % (15.0-51.0); MEAN CORPUSCULAR HEMOGLOBIN 28.3 pg (29.0-33.0); MEAN CORPUSCULAR HGB CONC 34.1 g/dl (32.0-37.0); MEAN CORPUSCULAR VOLUME 82.9 fl (82.0-101.0); MEAN PLATELET VOLUME 10.3 fl (7.4-10.4); MONOCYTE # 0.3 10^3/ul (0.3-0.9); MONOCYTES % 8.5 % (0.0-11.0); NEUTROPHIL # 1.7 10^3/ul (1.6-7.5); NEUTROPHILS % 50.9 % (39.0-77.0); POSITIVE DIFF @See below; RED BLOOD COUNT 4.49 10^6/ul (4.70-6.10); RED CELL DISTRIBUTION WIDTH 13.4 % (11.5-14.5); WHITE BLOOD COUNT 3.3 10^3/ul (4.8-10.8)
[2017-01-05 06:30] LABS: PLATELET COUNT 109 10^3/UL (140-415)
[2017-01-05 06:35] LABS: MAGNESIUM 1.9 mg/dl (1.7-2.5); PHOSPHORUS 4.2 mg/dl (2.5-4.9)
[2017-01-05] MEDS: DEXTROSE 10% 1,000 ML IV SCH ×3 (06:36→12:58)
[2017-01-05 06:42] LABS: CREATININE 0.91 mg/dl (0.61-1.24); POTASSIUM 3.9 mmol/L (3.5-5.1)
[2017-01-05 07:13] LABS: AMYLASE 57 U/L (11-123)
[2017-01-05 07:47] LABS: ANISOCYTOSIS 1+ (0-0); BASOPHILS % (M) 2 % (0-2); EOSINOPHILS % (M) 2 % (0-7); GIANT THROMBO% (M) 2 % (0-0); MICROCYTOSIS 1+ (0-0); MONOCYTES % (M) 7 % (0-11); PLATELET ESTIMATE INCREASED
[2017-01-05] MEDS: OCTREOTIDE 100 MCG INJ SC SCH ×4 (09:00→21:12)
[2017-01-05] MEDS: PROPRANOLOL 20 MG TAB PO SCH ×2 (09:30→22:00)
--- NOTE | 2017-01-05 13:18 | PN ---
Date/Time of Note Date/Time of Note DATE: 01/05/17 TIME: 13:02 Assessment/Plan VTE Prophylaxis VTE Prophylaxis Intervention: ambulation, SCD's Lines/Catheters IV [facility]from [facility] Urinary Cath still in place: No Assessment/Plan Assessment/Plan 41-year-old male with: 1. 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 Patient has been admitted multiple times here at [facility] and other hospitals with hypoglycemic episodes Appreciate recommendations from Dr. Eli Patient switched to subcutaneous octreotide and titrating D10 drip down. Now that his pancreatic enzymes have normalized, will put him on a regular diet. Follow-up further recommendations today. Patient claims that he has been working with his IPA in order to have EUS for evaluation of his pancreatic mass and subsequent resection, however he has not been able to afford the follow-ups. I have discussed the case with his IPA today, [facility], patient did have an authorization for EUS with Dr. Bush, patient claims he went there and was told it was not authorized. I have asked the insurance to again re issue new authorizations for referral to gastroenterology for EUS and hepatobiliary surgery for subsequent surgical intervention and also to confirm those appointments hopefully within the next 24 hours for discharge planning 2. Chronic epigastric abdominal pain, narcotic dependent, possible alcoholic pancreatitis: Lipase has normalized Patient will be advanced to regular diet Continue narcotic for pain control while inpatient 3. Known nephrolithiasis and many calcium crystals in urine. Stable 4. Alcohol use: Patient is not reliable, he is claiming that he quits, however he just had an episode of binge drinking few days ago and he is excuse if he was at parties including his brother's wedding. Of note he is also found to have positive cocaine on his urine tox screen 2, he has come up with multiple different excuses and finally is maintaining that he has been around people using cocaine and dealing cocaine and they may have been a transfer at that point. 5. Tobacco use: Patient is advised also quit he is a heavy smoker, smoking up to 2-1/2 packs a day. Nicotine patch will be ordered 6. PTSD, anxiety disorder: Continue outpatient medications. Prophylaxis: SCDs for DVT prophylaxis, Pepcid for GI prophylaxis Disposition: Titrating D10 drip down, regular diet. Outpatient arrangements for EUS and subsequent surgical follow-up. Discharge planning within 24 hours if all appointments secured and blood sugar controlled. Patient did promise that he will not leave AMA Subjective 24 Hr Interval Summary Free Text/Dictation Patient doing well, epigastric pain much improved, tolerating p.o. well, will advance diet to regular diet since pancreatic enzymes have normalized today. Exam/Review of Systems Vital Signs Vitals Vital Signs Date Time Temp Pulse Resp B/P Pulse Ox O2 Delivery O2 Flow Rate FiO2 01/05/17 09:23 76 126/67 99 Room Air 01/04/17 23:00 98.6 16 Exam Constitutional: alert, oriented, well developed Respiratory: clear to auscultation, normal air movement Cardiovascular: nl pulses, regular rate and rhythm Gastrointestinal: soft, tender (Epigastric) Musculoskeletal: nl extremities to inspection, nl gait and stance Extremities: normal pulses Neurological: UNDERWRITING ACCOUNT REPRESENTATIVE II-XII intact, nl mental status, nl speech, nl strength Results Result Diagram: 01/05/17 0430 01/05/17 0430 Results 24 hrs Laboratory Tests Test 01/04/17 14:23 01/04/17 16:13 01/04/17 21:15 01/05/17 02:11 Bedside Glucose 116 112 150 188 Test 01/05/17 04:30 01/05/17 04:53 01/05/17 09:21 01/05/17 12:49 White Blood Count 3.3 L Red Blood Count 4.49 L Hemoglobin 12.7 L Hematocrit 37.2 L Mean Corpuscular Volume 82.9 Mean Corpuscular Hemoglobin 28.3 L Mean Corpuscular Hemoglobin Concent 34.1 Red Cell Distribution Width 13.4 Platelet Count 109 #L Mean Platelet Volume 10.3 Neutrophils % 50.9 Segmented Neutrophils % (Manual) 24 L Lymphocytes % 38.5 Lymphocytes % (Manual) 65 H Monocytes % 8.5 Monocytes % (Manual) 7 Eosinophils % 1.8 Eosinophils % (Manual) 2 Basophils % 0.3 Basophils % (Manual) 2 Nucleated Red Blood Cells % 0.0 Neutrophils # 1.7 Absolute Lymphocytes (Manual) 2.1 Lymphocytes # 1.3 Monocytes # 0.3 Absolute Monocytes (Manual) 0.2 L Eosinophils # 0.1 Basophils # 0.0 Basophils # (Manual) 0.0 Nucleated Red Blood Cells # 0.0 Platelet Estimate INCREASED Giant Platelets 2 H Anisocytosis 1+ Microcytosis 1+ Sodium Level 141 Potassium Level 3.9 Chloride Level 106 Carbon Dioxide Level 27 Anion Gap 12 Blood Urea Nitrogen 8 Creatinine 0.91 Glucose Level 153 Calcium Level 9.0 Phosphorus Level 4.2 Magnesium Level 1.9 Amylase Level 57 Lipase 192 Bedside Glucose 151 118 114 Medications Medications Current Medications Dextrose (D50w Syringe) 50 ml PRN PRN IV BS<70 Last administered on 01/03/17 23:35; Admin Dose 50 ML; Start 01/04/17 at 00:00 Oxcarbazepine (Trileptal) 300 mg QHS PO Last administered on 01/04/17 21:50; Admin Dose 300 MG; Start 01/04/17 at 21:00 Propranolol HCl (Inderal) 20 mg BID PO Last administered on 01/05/17 09:30; Admin Dose 20 MG; Start 01/04/17 at 09:00 Quetiapine Fumarate (Seroquel) 300 mg HS PO Last administered on 01/04/17 21: 48; Admin Dose 300 MG; Start 01/04/17 at 21:00 Zolpidem Tartrate 5 mg 5 mg QHS PRN PO INSOMNIA Last administered on 23:00; Admin Dose 5 MG; Start 01/04/17 at 01:00 Dextrose (D10w) 1,000 ml @ 50 mls/hr Q20H IV Last administered on 01/05/17 12:58; Admin Dose 50 MLS/HR; Start 01/04/17 at 01:00 Acetaminophen/ Hydrocodone Bitart ([place] (5/325)) 1 tab Q4H PRN PO PAIN LEVEL 1 -5; Start 01/04/17 at 01:00 Acetaminophen/ Hydrocodone Bitart ([place] (5/325)) 2 tab Q4H PRN PO PAIN LEVEL 6 -10 Last administered on 01/04/17 01:34; Admin Dose 2 TAB; Start 01/04/17 at 01:00 Miscellaneous Information 1 ea NOTE XX ; Start 01/04/17 at 01:00 Glucose (Glutose) 15 gm Q15M PRN PO DECREASED GLUCOSE; Start 01/04/17 at 01:00 Glucose (Glutose) 22.5 gm Q15M PRN PO DECREASED GLUCOSE; Start 01/04/17 at 01: 00 Dextrose (D50w Syringe) 25 ml Q15M PRN IV DECREASED GLUCOSE; Start 01/04/17 at 01:00 Dextrose (D50w Syringe) 50 ml Q15M PRN IV DECREASED GLUCOSE Last administered on 01/04/17 04:22; Admin Dose 50 ML; Start 01/04/17 at 01:00 Glucagon (Glucagen) 1 mg Q15M PRN IM DECREASED GLUCOSE; Start 01/04/17 at 01: 00 Glucose (Glutose) 15 gm Q15M PRN BUCCAL DECREASED GLUCOSE; Start 01/04/17 at 01:00 Hydromorphone HCl (Dilaudid) 0.5 mg Q3H PRN IV PAIN Last administered on 12:47; Admin Dose 0.5 MG; Start 01/04/17 at 11:00 Diagnostic Test (Pha) (Accu-Chek) 1 ea Q4 XX Last administered on 01/05/17 09 :23; Admin Dose 1 EA; Start 01/04/17 at 17:00 Octreotide Acetate (Sandostatin) 300 mcg QID SC Last administered on 21:57; Admin Dose 300 MCG; Start 01/04/17 at 17:00 JULISA SANTO Jan 05, 2017 13:18
[2017-01-05] MEDS: NICOTINE (21 MG/24 HR) PATCH TRANSDERM SCH (15:00)
[2017-01-05] MEDS ORDERED: LOPERAMIDE 2 MG CAP PO PRN (18:00)
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
[2017-01-05] MEDS: ONDANSETRON 4 MG INJ IV PRN (18:25)
[2017-01-05] MEDS ORDERED: METOCLOPRAMIDE 10 MG INJ IV PRN (18:30)
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
[2017-01-05] MEDS: QUETIAPINE 100 MG TAB PO SCH (21:08)
[2017-01-05] MEDS: FAMOTIDINE 20 MG TAB PO SCH (21:08)
[2017-01-05] MEDS: OXCARBAZEPINE 300 MG TAB PO SCH (21:08)
[2017-01-05] MEDS: ZOLPIDEM 5 MG TAB PO PRN (22:00)
[2017-01-06] VITALS (7 sets, daily range): BP systolic 113–122; BP diastolic 58–67; PULSE 67–89; RESP 18–20
[2017-01-06] MEDS: ACCU-CHEK XX SCH ×4 (01:07→12:32)
[2017-01-06] MEDS: HYDROmorphONE 0.5 MG/0.5 ML SYG IV PRN ×5 (01:07→14:04)
[2017-01-06] MEDS: OCTREOTIDE 100 MCG INJ SC SCH ×2 (08:13→12:31)
[2017-01-06] MEDS: ONDANSETRON 4 MG INJ IV PRN (08:14)
[2017-01-06] MEDS: NICOTINE (21 MG/24 HR) PATCH TRANSDERM SCH (08:18)
[2017-01-06] MEDS: FAMOTIDINE 20 MG TAB PO SCH (08:18)
[2017-01-06] MEDS: PROPRANOLOL 20 MG TAB PO SCH (08:18)
[2017-01-06] MEDS: DEXTROSE 10% 1,000 ML IV SCH (11:20)
--- NOTE | 2017-01-06 14:41 | PN ---
Date/Time of Note Date/Time of Note DATE: 01/06/17 TIME: 14:00 Assessment/Plan VTE Prophylaxis VTE Prophylaxis Intervention: ambulation, SCD's Lines/Catheters IV [facility]from [facility] Saline Lock Urinary Cath still in place: No Assessment/Plan Assessment/Plan 41-year-old male with: 1. Severe hypoglycemia with known previous Insulinoma status post distal pancreatectomy a few years ago followed by second resection years later. Patient has been admitted multiple times here at [facility] and other hospitals with hypoglycemic episodes with suspicions of recurrent insulinoma, patient is being referred for EUS for diagnosis as he has severe claustrophobia and allergies to contrast so cannot do MRI or CT with contrast. However per previous work up on previous admission, now question of Exogenous Insulin use, possibility of Munchausen and secondary gain.. Patient does have a supply of Octreotide already at home and has an referral and appointment made with GI, Dr Bush for need of an EUS. Appointment is on 01/18 at 3 45pm. Appreciate recommendations from Dr. Eli, will d/c home home with Home Health RN. Depending on EUS findings and results from C peptide and Insulin levels sent from admission He will be subsequently referred to [facility] hepatobiliary surgery if surgical intervention needed 2. Chronic epigastric abdominal pain, narcotic dependent, possible alcoholic pancreatitis: Lipase has normalized Patient will be advanced to regular diet Resume outpatient pain control 3. Known nephrolithiasis and many calcium crystals in urine. Stable 4. Alcohol use: Patient is not reliable, he is claiming that he quits, however he just had an episode of binge drinking few days ago and he is excuse if he was at parties including his brother's wedding. Of note he is also found to have positive cocaine on his urine tox screen 2, he has come up with multiple different excuses and finally is maintaining that he has been around people using cocaine and dealing cocaine and they may have been a transfer at that point. 5. Tobacco use: Patient is advised also quit he is a heavy smoker, smoking up to 2-1/2 packs a day. He does ask for Nicotine patch. 6. PTSD, anxiety disorder: Continue outpatient medications. Prophylaxis: SCDs for DVT prophylaxis, Pepcid for GI prophylaxis Disposition: On regular diet, BG stable. Outpatient arrangements for EUS done and subsequent surgical follow-up will be arranged. Discharge home with Home Health RN check for medication compliance Subjective 24 Hr Interval Summary Free Text/Dictation Patient doing OK and he says and swears he has a supply of Octreotide at home already Appreciate recommendations from Dr Ceron, ? D/c plan home and patient referred to GI, Dr Bush for EUS. Patient an appointment for 01/18 at 3 45 pm. Exam/Review of Systems Vital Signs Vitals Vital Signs Date Time Temp Pulse Resp B/P Pulse Ox O2 Delivery O2 Flow Rate FiO2 01/06/17 12:22 71 01/06/17 11:38 98.0 19 122/58 99 01/05/17 16:00 Room Air Intake and Output 01/05/17 01/05/17 01/06/17 14:59 22:59 06:59 Intake Total 850 ml 350 ml Balance 850 ml 350 ml Exam Constitutional: alert, oriented, well developed Respiratory: clear to auscultation, normal air movement Cardiovascular: nl pulses, regular rate and rhythm Gastrointestinal: non-tender, soft Musculoskeletal: nl extremities to inspection, nl gait and stance Extremities: normal pulses, other (no edema, clubbing or cyanosis ) 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, nl mental status, nl speech, nl strength Results Result Diagram: 01/05/17 0430 01/05/17 0430 Results 24 hrs Laboratory Tests Test 01/05/17 17:11 01/05/17 21:07 01/06/17 01:05 01/06/17 05:03 Bedside Glucose 139 124 127 116 Test 01/06/17 08:17 01/06/17 12:32 Bedside Glucose 115 118 Medications Medications Current Medications Oxcarbazepine (Trileptal) 300 mg QHS PO Last administered on 01/05/17 21:08; Admin Dose 300 MG; Start 01/04/17 at 21:00 Propranolol HCl (Inderal) 20 mg BID PO Last administered on 01/06/17 08:18; Admin Dose 20 MG; Start 01/04/17 at 09:00 Quetiapine Fumarate (Seroquel) 300 mg HS PO Last administered on 01/05/17 21: 08; Admin Dose 300 MG; Start 01/04/17 at 21:00 Zolpidem Tartrate 5 mg 5 mg QHS PRN PO INSOMNIA Last administered on 22:00; Admin Dose 5 MG; Start 01/04/17 at 01:00 Dextrose (D10w) 1,000 ml @ 50 mls/hr Q20H IV Last administered on 01/06/17 11:20; Admin Dose 50 MLS/HR; Start 01/04/17 at 01:00 Acetaminophen/ Hydrocodone Bitart ([place] (5/325)) 1 tab Q4H PRN PO PAIN LEVEL 1 -5; Start 01/04/17 at 01:00 Acetaminophen/ Hydrocodone Bitart ([place] (5/325)) 2 tab Q4H PRN PO PAIN LEVEL 6 -10 Last administered on 01/04/17 01:34; Admin Dose 2 TAB; Start 01/04/17 at 01:00 Miscellaneous Information 1 ea NOTE XX ; Start 01/04/17 at 01:00 Glucose (Glutose) 15 gm Q15M PRN PO DECREASED GLUCOSE; Start 01/04/17 at 01:00 Glucose (Glutose) 22.5 gm Q15M PRN PO DECREASED GLUCOSE; Start 01/04/17 at 01: 00 Dextrose (D50w Syringe) 25 ml Q15M PRN IV DECREASED GLUCOSE; Start 01/04/17 at 01:00 Dextrose (D50w Syringe) 50 ml Q15M PRN IV DECREASED GLUCOSE Last administered on 01/04/17 04:22; Admin Dose 50 ML; Start 01/04/17 at 01:00 Glucagon (Glucagen) 1 mg Q15M PRN IM DECREASED GLUCOSE; Start 01/04/17 at 01: 00 Glucose (Glutose) 15 gm Q15M PRN BUCCAL DECREASED GLUCOSE; Start 01/04/17 at 01:00 Hydromorphone HCl (Dilaudid) 0.5 mg Q3H PRN IV PAIN Last administered on 11:15; Admin Dose 0.5 MG; Start 01/04/17 at 11:00 Diagnostic Test (Pha) (Accu-Chek) 1 ea Q4 XX Last administered on 01/06/17 12 :32; Admin Dose 1 EA; Start 01/04/17 at 17:00 Octreotide Acetate (Sandostatin) 300 mcg QID SC Last administered on 08:13; Admin Dose 300 MCG; Start 01/04/17 at 17:00 Famotidine (Pepcid) 20 mg BID PO Last administered on 01/05/17 21:08; Admin Dose 20 MG; Start 01/05/17 at 21:00 Nicotine (Nicoderm 21 Mg/ 24hr) 1 patch DAILY TRANSDERM ; Start 01/05/17 at 15: 00 Ondansetron HCl (Zofran Inj) 4 mg Q4H PRN IV NAUSEA AND/OR VOMITING Last administered on 01/06/17 08:14; Admin Dose 4 MG; Start 01/05/17 at 18:00 Loperamide HCl (Imodium Cap) 2 mg QID PRN PO DIARRHEA; Start 01/05/17 at 18:00 Metoclopramide HCl (Reglan) 10 mg Q6H PRN IV NAUSEA AND/OR VOMITING; Start at 18:30 JULISA SANTO Jan 06, 2017 14:10
--- NOTE | 2017-01-06 14:44 | PDOCDIS ---
Discharge Instructions CONDITION Patient Condition: Stable HOME CARE INSTRUCTIONS: Special Diet: Regular Diet ACTIVITY: Activity Restrictions: No Restrictions FOLLOW UP/APPOINTMENTS Follow-up Plan Follow up with GI Dr Bush on 01/18 at 3 45pm Follow up with PCP within 1 week Home Health RN check for medication compliance JULISA SANTO Jan 06, 2017 14:43
[2017-01-06] MEDS ORDERED: ZOF8 PO (14:45)
[2017-01-06] MEDS ORDERED: NICO1PAT6 TRANSDERM (14:45)
[2017-01-06] MEDS ORDERED: OCTR100V2 SC (14:45)
[2017-01-06] MEDS ORDERED: OXYC-209 PO (14:54)
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
== END 2017-01-06 15:53 | disposition home health service (06) | DRG 643 ==
LOC: E/R 21:08 → MS3 01-04 00:30 → MS4 01-04 18:35
PROVIDERS: ADMIT Internal Medicine; ATTEND Internal Medicine
DX: E16.1 Other hypoglycemia (principal); K85.90 Acute pancreatitis without necrosis or infection, unspecified; E87.6 Hypokalemia; D13.7 Benign neoplasm of endocrine pancreas; R16.1 Splenomegaly, not elsewhere classified; R10.13 Epigastric pain; N20.0 Calculus of kidney; F10.10 Alcohol abuse, uncomplicated; F11.10 Opioid abuse, uncomplicated; F14.10 Cocaine abuse, uncomplicated; F17.210 Nicotine dependence, cigarettes, uncomplicated; F43.10 Post-traumatic stress disorder, unspecified; F41.9 Anxiety disorder, unspecified; J45.909 Unspecified asthma, uncomplicated; Z91.041 Radiographic dye allergy status; Z88.2 Allergy status to sulfonamides; Z90.411 Acquired partial absence of pancreas; Z90.49 Acquired absence of other specified parts of digestive tract
CPT/HCPCS: 36415; 80048; 80053; 80307; 81003; 82150; 82962; 83525; 83690; 83735; 84100; 84681; 85025; 96372; 96374; 96375; 96376; J1170; J2270; J2354; J2405

== ENCOUNTER 2017-02-15 10:11 | Inpatient (IN) | END 2017-02-16 11:53 | disposition home or self-care (01) | DRG 641 ==

== ENCOUNTER 2017-08-10 19:51 | Inpatient (IN) | END 2017-08-13 11:23 | disposition home or self-care (01) | DRG 641 ==

== ENCOUNTER 2017-09-18 18:24 | Inpatient (IN) | END 2017-09-19 11:50 | disposition left against medical advice (07) | DRG 641 ==

== ENCOUNTER 2018-07-08 21:10 | Inpatient (IN) | payer OTHER ==
[~2018-07-08] VITALS: Ht 170.2 cm; Wt 77.4 kg
[~2018-07-08 21:10] MED LIST changes: +BEN50 PO; -HYDR-902 PO; +OCTR50DI2 SC; +OXYC-209 PO; -QUET300T13 PO; +QUET300T2 PO; +ZOF8 PO
[2018-07-08] MEDS: DEXTROSE 10% 1,000 ML IV STA ×2 (22:23→22:42)
[2018-07-08] MEDS ORDERED: DEXTROSE 50% 50 ML SYRINGE IV ONE (23:00)
[2018-07-09] VITALS (8 sets, daily range): BP systolic 104–137; BP diastolic 63–89; PULSE 53–75; RESP 18–20; Ht 170.2 cm; Wt 77.4 kg
[2018-07-09] MEDS: OCTREOTIDE 50 MCG INJ SC ONE ×2 (00:54→04:10)
--- NOTE | 2018-07-09 03:28 | ERD ---
ER Documentation Chief Complaint Chief Complaint hypoglycemic & cold sweating now HPI This a 42 male with known insulinoma comes in with recurrent hypoglycemia. Denies fevers chills nausea vomiting. Denies any other current complaints. Patient states that he has been compliant with medications. He said he was cold and shivering that his sugar was low. He was given D50 in the field. Started on D10 drip immediately. ROS All systems reviewed and are negative except as per history of present illness. Medications Home Meds Active Scripts Oxycodone HCl/Acetaminophen (Percocet 10-325 mg Tablet) 1 Each Tablet, 1 EACH PO Q6 PRN for PAIN, #20 TAB Prov:JULISA ASNTO 08/13/17 Ondansetron Hcl* (Zofran*) 8 Mg Tab, 8 MG PO Q8 for nausea, #90 TAB 3 Refills Can be taken 30 minutes prior to subcu injection of octreotide to minimize/prevent nausea Prov:JULISA SANTO 08/13/17 Octreotide Acetate* (Octreotide Acetate*) 50 Mcg/1 Ml Disp.syrin, 200 MCG SC Q8 for 30 Days, VIAL 3 Refills Prov:JULISA SANTO 08/13/17 Reported Medications Zolpidem Tartrate* (Zolpidem Tartrate*) 5 Mg Tablet, 5 MG PO QHS PRN for IN SOMNIA, #30 TAB 08/10/17 Quetiapine Fumarate* (Seroquel*) 300 Mg Tablet, 300 MG PO HS, TAB 08/10/17 Propranolol Hcl* (Propranolol Hcl*) 20 Mg Tablet, 20 MG PO BID, TAB 08/10/17 Oxcarbazepine* (Oxcarbazepine*) 300 Mg Tablet, 300 MG PO QHS, TAB 08/10/17 Diphenhydramine Hcl* (Benadryl*) 50 Mg Cap, 50 MG PO DAILY PRN for ITCHING, CAP 08/10/17 Allergies Allergies: Coded Allergies: iodine (Verified Allergy, Intermediate, 08/12/17) morphine (Verified Allergy, Intermediate, rashes/itchiness, 08/12/17) fluoxetine (Verified Allergy, Unknown, 08/12/17) ketorolac (Verified Allergy, Unknown, 08/12/17) meperidine (Verified Allergy, Unknown, 08/12/17) sulfamethoxazole (Verified Allergy, Unknown, 08/12/17) trimethoprim (Verified Allergy, Unknown, 08/12/17) PMhx/Soc History of Surgery: Yes (partial pancreas removed,tumor hernia repair galll bladde and appendice) Anesthesia Reaction: No Hx Neurological Disorder: No Hx Respiratory Disorders: No Hx Cardiac Disorders: No Hx Alcohol Use: Yes (past does not drink any more) Hx Substance Use: Yes (past irwin years ago) Hx Tobacco Use: Yes Smoking Status: Never smoker Physical Exam Vitals Vital Signs Date Temp Pulse Resp B/P (MAP) Pulse Ox O2 O2 Flow FiO2 Time Delivery Rate 07/09/18 67 17 105/9 (41) 100 Room Air 00:46 07/08/18 60 16 113/64 98 Room Air 22:30 (80) 07/08/18 96.9 54 18 167/94 99 21:30 (118) Physical Exam Const: No acute distress Head: Atraumatic Eyes: Normal Conjunctiva ENT: Normal External Ears, Nose and Mouth. Neck: Full range of motion. No meningismus. Resp: Clear to auscultation bilaterally Cardio: Regular rate and rhythm, no murmurs Abd: Soft, non tender, non distended. Normal bowel sounds Skin: No petechiae or rashes Back: No midline or flank tenderness Ext: No cyanosis, or edema Neur: Awake and alert Psych: Normal Mood and Affect Result Diagram: 07/08/18 2304 07/08/18 2304 Results 24 hrs Laboratory Tests Test 07/08/18 21:20 07/08/18 21:42 07/08/18 22:11 07/08/18 22:38 Bedside Glucose 35 mg/dL 43 mg/dL 79 mg/dL 112 mg/dL Test 07/08/18 23:04 07/09/18 00:08 07/09/18 01:19 07/09/18 02:16 White Blood Count 7.1 10^3/ul Red Blood Count 4.72 10^6/ul Hemoglobin 13.2 g/dl Hematocrit 39.5 % Mean Corpuscular 83.7 fl Volume Mean Corpuscular 28.0 pg Hemoglobin Mean Corpuscular 33.4 g/dl Hemoglobin Concent Red Cell 13.0 % Distribution Width Platelet Count 124 10^3/UL Mean Platelet 10.8 fl Volume Immature 0.300 % Granulocytes % Neutrophils % 81.2 % Lymphocytes % 12.2 % Monocytes % 5.5 % Eosinophils % 0.7 % Basophils % 0.1 % Nucleated Red Blood 0.0 /100WBC Cells % Immature 0.020 10^3/ul Granulocytes # Neutrophils # 5.8 10^3/ul Lymphocytes # 0.9 10^3/ul Monocytes # 0.4 10^3/ul Eosinophils # 0.1 10^3/ul Basophils # 0.0 10^3/ul Nucleated Red Blood 0.0 10^3/ul Cells # Sodium Level 142 mmol/L Potassium Level 3.1 mmol/L Chloride Level 110 mmol/L Carbon Dioxide 25 mmol/L Level Anion Gap 7 Blood Urea Nitrogen 14 mg/dl Creatinine 0.84 mg/dl Est Glomerular > 60 mL/min Filtrat Rate mL/min Glucose Level 84 mg/dl Calcium Level 9.6 mg/dl Bedside Glucose 59 mg/dL 85 mg/dL 69 mg/dL Test 07/09/18 03:22 Bedside Glucose 40 mg/dL Current Medications Medications Dose Sig/Bhakti Start Time Status Last (Trade) Ordered Route PRN Stop Time Admin Dose Reason Admin Dextrose 1,000 ml @ Q8H20M STAT 07/08/18 07/08/18 120 mls/hr IV 22:23 22:23 07/09/18 06:42 Dextrose 50 ml ONCE ONCE 07/08/18 DC 07/08/18 (D50w IV 23:00 21:50 Syringe) 07/08/18 23:01 1 mg ONCE STAT 07/09/18 DC 07/09/18 Hydromorphone IV 00:00 00:12 HCl 07/09/18 00:03 (Dilaudid) Ondansetron 4 mg ONCE STAT 07/09/18 DC 07/09/18 HCl (Zofran IV 00:00 00:12 Inj) 07/09/18 00:03 Octreotide 50 mcg ONCE ONCE 07/09/18 DC Acetate SC 00:30 (Sandostatin) 07/09/18 00:31 Dextrose 50 ml ONCE ONCE 07/09/18 07/09/18 (D50w IV 03:30 03:26 Syringe) 07/09/18 03:31 Procedures/MDM Medical decision making: Patient with known insulin with recurrent episodes of hypoglycemia. Patient started on D10 drip. He has had to get multiple surgeries D50. Given this, patient will be admitted to telemetry to Dr. Bustamante who is on-call for the patient's insurance Critical Care: Time: 45 minutes, independent of any separately billable procedural time Treatments/Evaluations: Close monitoring and treatment of unstable vital signs, cardiorespiratory, and neurologic status, while maintaining tight balance of fluid, respiratory, and cardiac interventions. Departure Diagnosis: Primary Impression: Hypoglycemia Additional Impression: Insulinoma Condition: Serious JEANNIE BOWLING July 09, 2018 03:28
[2018-07-09] MEDS ORDERED: DEXTROSE 50% 50 ML SYRINGE IV ONE ×2 (03:30→10:00)
[2018-07-09] MEDS ORDERED: HYDROmorphONE 1 MG/ML SYG IV STA ×2 (03:45)
[2018-07-09] MEDS ORDERED: ONDANSETRON 4 MG INJ IV STA ×2 (03:45)
[2018-07-09] MEDS ORDERED: SODIUM CHLORIDE 23.4% 154 MEQ in DEXTROSE 10% 1,000 ML IV SCH (04:00)
[2018-07-09] MEDS: DEXTROSE 50% 50 ML SYRINGE IV ONE ×2 (04:25→05:03)
[2018-07-09] MEDS ORDERED: DEXTROSE 10% 1,000 ML IV STA ×2 (04:30)
[2018-07-09] MEDS ORDERED: DEXTROSE 10% 1,000 ML IV SCH (04:30)
[2018-07-09] MEDS: HYDROmorphONE 1 MG/ML SYG IV PRN ×7 (07:13→22:33)
[2018-07-09] MEDS ORDERED: OCTREOTIDE 100 MCG INJ SC SCH (10:00)
[2018-07-09] MEDS ORDERED: ACCU-CHEK XX SCH (10:00)
[2018-07-09] MEDS: DEXTROSE 10% 1,000 ML IV SCH ×3 (10:13→20:09)
[2018-07-09] MEDS: PROPRANOLOL 20 MG TAB PO SCH ×2 (10:30→20:06)
--- NOTE | 2018-07-09 10:33 | HP ---
DATE OF ADMISSION: 07/09/2018 REASON FOR VISIT: Hypoglycemic reaction. HISTORY OF PRESENT ILLNESS: This is a 42-year-old male with history of insulinoma status post partia l pancreatic resection in 2005, presented to emergency room with recurrent hypoglycemia. The patient felt weak and became diaphoretic at home. He checked his blood sugar and it was in the 40s. The pa kaylynn took dextrose. Blood sugars in the emergency room were as low as 37. The patient was started on a D10 drip. He was previously on octreotide but this was stopped due to nausea. The patient has chronic pain syndrome and is narcotic dependent. PAST MEDICAL HISTORY: 1. History of insulinoma. 2. Chronic asthma, compensated. 3. History of nephrolithiasis. 4. Anxiety disorder. PAST SURGICAL HISTORY: Status post pancreatic resection in 2005, status post cholecystectomy. MEDICATIONS PRIOR TO ADMISSION: 1. Benadryl. 2. Propranolol. 3. Oxcarbazepine. 4. Percocet. 5. Seroquel. 6. Ambien. 7. Zofran. 8. Octreotide; however. the patient reports that he has not been taking octreotide as outpatient. PHYSICAL EXAMINATION: GENERAL: Well-developed, well-nourished male who is in no apparent distress. VITAL SIGNS: Stable. He is afebrile. HEENT: Extraocular muscles are intact. Pupils equal, reactive to light bilaterally. Sclerae are an icteric. Oropharynx is clear and moist. NECK: Supple, no JVD, no carotid bruits. LUNGS: Clear to auscultation bilaterally. CARDIAC: Regular rate and rhythm. No murmurs or gallops. ABDOMEN: Soft, diffusely tender. No rebound or guarding. Normoactive bowel sounds. EXTREMITIES: No clubbing, cyanosis, or edema. NEUROLOGICAL: Grossly nonfocal. ASSESSMENT: 1. A 42-year-old male with recurrent hypoglycemia most likely due to insulinoma. 2. History of insulinoma status post partial pancreatectomy in 2005. 3. Narcotic dependence. 4. Anxiety disorder. PLAN: 1. Place in tele observation. 2. Continue D10 drip. 3. Resume octreotide, endocrinology consultation was requested. Dictated By: NADIA WALTON/STEVEN Conf#: [id number] DID#: [id number] CC: NADIA DAVIS MD;*EndCC*
[2018-07-09] MEDS: OCTREOTIDE 100 MCG INJ SC SCH ×2 (12:00→22:00)
[2018-07-09] MEDS: ACCU-CHEK XX SCH ×3 (14:09→22:37)
--- NOTE | 2018-07-09 17:38 | CONS ---
Assessment/Plan Assessment/Plan Problems: (1) Insulinoma Status: Chronic Comment: Presenting as usual w/ hypoglycemia. Will d/c octreotide as pt. will not take it. Will resume diazeoxide although dosage may be underdosed. Was on 150 mg/d which is < 2 mg/kg. Will increase to 300 mg/d divided into 100 mg q8 which is closer to the 5 mg/kg/d recommended and monitor glucose values. Hopefully hypoglycemia will resolve w/ this. Defer to Dr. Patel in near future. Consultation Date/Type/Reason Admit Date/Time July 09, 2018 at 00:06 Date of Consultation: July 09, 2018 Type of Consult Endocrinology Reason for Consultation Hypoglycemia, h/o insulinoma Requesting Provider: NADIA DAVIS MD Date/Time of Note DATE: 07/09/18 TIME: 17:29 Hx of Present Illness 42 y/o H M w/ h/o insulinoma s/p resection 10 y. ago now with recurrence, also w/ asthma and psych disease NOS. Pt. seen here for hypoglycemia 2 y. ago and 1 1/2 y. ago x 2. At those times was stabilized on sq octreotide. However, pt. eventually decided to refuse octreotide b/c was too nauseating for him. Last year admitted again and signed out AMA b/c refused to be on octreotide. Previously reported that while on octreotide did not have hypoglycemia. However, today states that w/ or w/o octreotide, eventually insulinoma would break through and he would have hypoglycemia. Recently started seeing our partner Dr. Patel in the office. Placed on diazeoxide and acarbose. Pt. having hypoglycemia last week. Called office and Dr. Patel recommended to go to ER. In ER BG was in the 40's. Pt. admitted. Has been placed on octreotide which he is refusing. Constitutional: no complaints Eyes: no complaints ENT: no complaints Respiratory: no complaints Cardiovascular: no complaints Gastrointestinal: no complaints Genitourinary: no complaints Musculoskeletal: no complaints Neurologic: no complaints Past Medical History Medical History: gallstones, other (insulinoma, asthma, psych disease) Home Meds Active Scripts Oxycodone HCl/Acetaminophen (Percocet 10-325 mg Tablet) 1 Each Tablet, 1 EACH PO Q6 PRN for PAIN, #20 TAB Prov:JULISA SANTO 08/13/17 Ondansetron Hcl* (Zofran*) 8 Mg Tab, 8 MG PO Q8 for nausea, #90 TAB 3 Refills Can be taken 30 minutes prior to subcu injection of octreotide to minimize/prevent nausea Prov:JULISA SANTO 08/13/17 Octreotide Acetate* (Octreotide Acetate*) 50 Mcg/1 Ml Disp.syrin, 200 MCG SC Q8 for 30 Days, VIAL 3 Refills Prov:JULISA SANTO 08/13/17 Reported Medications Zolpidem Tartrate* (Zolpidem Tartrate*) 5 Mg Tablet, 5 MG PO QHS PRN for INSOMNIA, #30 TAB 08/10/17 Quetiapine Fumarate* (Seroquel*) 300 Mg Tablet, 300 MG PO HS, TAB 08/10/17 Propranolol Hcl* (Propranolol Hcl*) 20 Mg Tablet, 20 MG PO BID, TAB 08/10/17 Oxcarbazepine* (Oxcarbazepine*) 300 Mg Tablet, 300 MG PO QHS, TAB 08/10/17 Diphenhydramine Hcl* (Benadryl*) 50 Mg Cap, 50 MG PO DAILY PRN for ITCHING, CAP 08/10/17 Medications Current Medications Hydromorphone HCl (Dilaudid) 1 mg Q3H PRN IV SEVERE PAIN LEVEL 7-10 Last administered on 07/09/18at 16:18; Admin Dose 1 MG; Start 07/09/18 at 07:30 Dextrose 1,000 ml @ 200 mls/hr Q5H IV Last administered on 07/09/18at 15:15; Admin Dose 200 MLS/HR; Start 07/09/18 at 08:00 Oxcarbazepine (Trileptal) 300 mg QHS PO ; Start 07/09/18 at 21:00 Propranolol HCl (Inderal) 20 mg BID PO ; Start 07/09/18 at 10:30 Quetiapine Fumarate (Seroquel) 300 mg HS PO ; Start 07/09/18 at 21:00 Zolpidem Tartrate (Ambien) 5 mg QHS PRN PO INSOMNIA; Start 07/09/18 at 09:30 Diagnostic Test (Pha) (Accu-Chek) 1 ea Q4H XX Last administered on 07/09/18at 14:09; Admin Dose 1 EA; Start 07/09/18 at 14:00 Octreotide Acetate (Sandostatin) 200 mcg Q8 SC ; Start 07/09/18 at 12:00 Allergies: Coded Allergies: iodine (Verified Allergy, Intermediate, 08/12/17) morphine (Verified Allergy, Intermediate, rashes/itchiness, 08/12/17) fluoxetine (Verified Allergy, Unknown, 08/12/17) ketorolac (Verified Allergy, Unknown, 08/12/17) meperidine (Verified Allergy, Unknown, 08/12/17) sulfamethoxazole (Verified Allergy, Unknown, 08/12/17) trimethoprim (Verified Allergy, Unknown, 08/12/17) Past Surgical History Past Surgical Hx: cholecystectomy, other (partial pancreatectomy, hernia repair x 2) Family History Significant Family History: diabetes (maternal grandparents) Social History b. 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 ) Drug Use: cocaine (in past) Exam/Review of Systems Exam Vitals VS - Last 72 Hours, by Label Date Temp Pulse Resp B/P (MAP) Pulse Ox O2 O2 Flow FiO2 Time Delivery Rate 07/09/18 69 16:01 07/09/18 98.3 18 137/70 98 15:55 (92) 07/09/18 71 15:55 07/09/18 71 12:01 07/09/18 97.9 63 19 104/64 98 11:14 (77) 07/09/18 53 08:01 07/09/18 97.5 55 20 137/89 99 07:41 (105) 07/09/18 97.2 54 16 128/78 100 Room Air 07:15 (95) 54 07/09/18 97.2 47 16 134/85 100 Room Air 06:36 (101) 07/09/18 52 16 103/69 99 Room Air 06:16 (80) 07/09/18 51 16 112/71 99 Room Air 05:30 (85) 07/09/18 67 17 105/9 (41) 100 Room Air 00:46 07/08/18 60 16 113/64 98 Room Air 22:30 (80) 07/08/18 96.9 54 18 167/94 99 21:30 (118) Vital Signs Date Temp Pulse Resp B/P (MAP) Pulse Ox O2 O2 Flow FiO2 Time Delivery Rate 07/09/18 69 16:01 07/09/18 98.3 18 137/70 98 15:55 (92) 07/09/18 Room Air 07:15 Constitutional: alert, oriented, well developed Psych: no complaints, nl mood/affect Eyes: nl conjunctiva, EOMI, nl lids, nl sclera, PERRL ENMT: nl external ears & nose, mucosa pink and moist Neck: supple, non-tender; No bruits, No masses, No thyromegaly Respiratory: clear to auscultation, normal air movement Cardiovascular: regular rate and rhythm, nl pulses; No edema, No murmurs/extra sounds, No rub Gastrointestinal: soft, nl liver, spleen, non-tender, bowel sounds; No mass, No rebound or guarding Musculoskeletal: nl extremities to inspection Extremities: normal pulses; No cyanosis, No clubbing, No edema Neurological: RITUAL CIRCUMCISER II-XII intact, nl mental status, nl speech, nl strength Additional Comments Bedside Glucose - 72 Hours Test 07/08/18 21:20 07/08/18 21:42 07/08/18 22:11 07/08/18 22:38 Bedside 35 43 79 112 Glucose mg/dL (70-220) mg/dL (70-220) mg/dL (70-220) mg/dL (70-220) *L *L Test 07/09/18 00:08 07/09/18 01:19 07/09/18 02:16 07/09/18 03:22 Bedside 59 85 69 40 Glucose mg/dL (70-220) mg/dL (70-220) mg/dL (70-220) mg/dL (70-220) L L *L Test 07/09/18 04:09 07/09/18 04:24 07/09/18 05:32 07/09/18 06:33 Bedside 46 37 78 81 Glucose mg/dL (70-220) mg/dL (70-220) mg/dL (70-220) mg/dL (70-220) *L *L Test 07/09/18 09:53 07/09/18 10:16 07/09/18 12:11 07/09/18 14:07 Bedside 49 208 183 187 Glucose mg/dL (70-220) mg/dL (70-220) mg/dL (70-220) mg/dL (70-220) *L Results Result Diagram: 07/08/18 2304 07/08/18 2304 Results 24hrs Laboratory Tests Test 07/08/18 21:20 07/08/18 21:42 07/08/18 22:11 07/08/18 22:38 Bedside Glucose 35 *L 43 *L 79 112 Test 07/08/18 23:04 07/09/18 00:08 07/09/18 01:19 07/09/18 02:16 White Blood Count 7.1 # Red Blood Count 4.72 Hemoglobin 13.2 L Hematocrit 39.5 L Mean Corpuscular 83.7 Volume Mean Corpuscular 28.0 L Hemoglobin Mean Corpuscular 33.4 Hemoglobin Concent Red Cell 13.0 Distribution Width Platelet Count 124 #L Mean Platelet Volume 10.8 H Immature 0.300 Granulocytes % Neutrophils % 81.2 H Lymphocytes % 12.2 L Monocytes % 5.5 Eosinophils % 0.7 Basophils % 0.1 Nucleated Red Blood 0.0 Cells % Immature 0.020 Granulocytes # Neutrophils # 5.8 Lymphocytes # 0.9 Monocytes # 0.4 Eosinophils # 0.1 Basophils # 0.0 Nucleated Red Blood 0.0 Cells # Sodium Level 142 Potassium Level 3.1 L Chloride Level 110 Carbon Dioxide Level 25 Anion Gap 7 Blood Urea Nitrogen 14 Creatinine 0.84 Est Glomerular > 60 Filtrat Rate mL/min Glucose Level 84 Calcium Level 9.6 Bedside Glucose 59 L 85 69 L Test 07/09/18 03:22 07/09/18 04:09 07/09/18 04:24 07/09/18 05:32 Bedside Glucose 40 *L 46 *L 37 *L 78 Test 07/09/18 06:33 07/09/18 09:53 07/09/18 10:16 07/09/18 12:11 Bedside Glucose 81 49 *L 208 183 Test 07/09/18 14:07 Bedside Glucose 187 Medications Medication Current Medications Hydromorphone HCl (Dilaudid) 1 mg Q3H PRN IV SEVERE PAIN LEVEL 7-10 Last administered on 07/09/18at 16:18; Admin Dose 1 MG; Start 07/09/18 at 07:30 Dextrose 1,000 ml @ 200 mls/hr Q5H IV Last administered on 07/09/18at 15:15; Admin Dose 200 MLS/HR; Start 07/09/18 at 08:00 Oxcarbazepine (Trileptal) 300 mg QHS PO ; Start 07/09/18 at 21:00 Propranolol HCl (Inderal) 20 mg BID PO ; Start 07/09/18 at 10:30 Quetiapine Fumarate (Seroquel) 300 mg HS PO ; Start 07/09/18 at 21:00 Zolpidem Tartrate (Ambien) 5 mg QHS PRN PO INSOMNIA; Start 07/09/18 at 09:30 Diagnostic Test (Pha) (Accu-Chek) 1 ea Q4H XX Last administered on 07/09/18at 14:09; Admin Dose 1 EA; Start 07/09/18 at 14:00 Octreotide Acetate (Sandostatin) 200 mcg Q8 SC ; Start 07/09/18 at 12:00 EUGENE DAN MD July 09, 2018 17:38
[2018-07-09] MEDS: QUETIAPINE 100 MG TAB PO SCH (20:05)
[2018-07-09] MEDS: OXCARBAZEPINE 300 MG TAB PO SCH (20:06)
[2018-07-09] MEDS: DIAZOXIDE (50 MG/ML PO SYG) PO SCH (22:00)
[2018-07-09] MEDS: ZOLPIDEM 5 MG TAB PO PRN (22:32)
[2018-07-10] VITALS (12 sets, daily range): BP systolic 96–116; BP diastolic 53–68; PULSE 69–98; RESP 17–19
[2018-07-10] MEDS: DEXTROSE 10% 1,000 ML IV SCH ×6 (01:33→19:58)
[2018-07-10] MEDS: HYDROmorphONE 1 MG/ML SYG IV PRN ×11 (01:34→22:57)
[2018-07-10] MEDS: ACCU-CHEK XX SCH ×6 (02:00→22:25)
[2018-07-10] MEDS: DIAZOXIDE (50 MG/ML PO SYG) PO SCH ×3 (06:00→22:00)
[2018-07-10] MEDS: OCTREOTIDE 100 MCG INJ SC SCH ×3 (06:00→21:11)
[2018-07-10] MEDS: PROPRANOLOL 20 MG TAB PO SCH ×2 (08:32→21:01)
[2018-07-10] MEDS ORDERED: OCTR100V2 SC (09:34)
--- NOTE | 2018-07-10 09:34 | PDOCDIS ---
Discharge Instructions CONDITION [id number] Patient Condition: Eexke2g Good HOME CARE INSTRUCTIONS: [id number] Diet Instructions: [id number] Regular ACTIVITY: [id number] Activity Restrictions: [id number] No Restrictions FOLLOW UP/APPOINTMENTS Follow-up Plan pcp [address] Eli 1 week NADIA DAVIS MD July 10, 2018 09:34
--- NOTE | 2018-07-10 10:13 | DS ---
DATE OF ADMISSION: 07/09/2018 DATE OF DISCHARGE: 07/12/2018 DISCHARGE DIAGNOSES: 1. Hypoglycemia due to insulinoma. 2. History of insulinoma. 3. Status post partial pancreatectomy, partial pancreatic resection in 2005. 4. Chronic asthma, compensated. 5. History of nephrolithiasis. 6. Anxiety disorder. HOSPITAL COURSE: A 42-year-old male with history of insulinoma status post partial pancreatic resection in 2005, presented to the Emergency Room with recurrent hypoglycemia. The patient had stopped his octreotide as outpatient. Blood sugars were initially low. The patient was started on a D10 drip. He was seen in consultation by Dr. Ceron. Octreotide was resumed. His blood sugars stabilized. I decreased the D10 drip and continued to monitor his sugars. Patient decided to sign out AMA. I encouraged him to continue octreotide. He will be referred to [facility] for further evaluation. MEDICATIONS ON DISCHARGE: 1. Benadryl 50 mg p.o. daily as needed. 2. Propranolol 20 mg b.i.d. 3. Oxcarbamazepine 300 mg at bedtime. 4. Percocet 1 tablet every 6 hours as needed. 5. Seroquel 300 mg at bedtime. 6. Ambien 5 mg at bedtime p.r.n. 7. Zofran 8 mg q. 8 hours as needed. 8. Octreotide 200 mcg subq q.8h. Follow up with PCP in 1 week. Follow up with Dr. Ceron in 1 week. Dictated By: NADIA WALTON/STEVEN Conf#: [id number] DID#: [id number] CC: EUGENE CERON MD;*EndCC* MTDD
[2018-07-10] MEDS: ONDANSETRON 4 MG INJ IV PRN ×2 (10:41→21:11)
[2018-07-10] MEDS ORDERED: DEXTROSE 50% 50 ML SYRINGE IV ONE (11:30)
[2018-07-10] MEDS ORDERED: DEXTROSE 50% 50 ML SYRINGE IV STA (13:48)
--- NOTE | 2018-07-10 14:01 | CONS ---
Assessment/Plan Assessment/Plan Hospital Course (Demo Recall) Recurrent hypoglycemia -likely due to recurrent insulinoma, however need to confirm with blood test -when FS is less than 60 please check the following serum glucose insulin proinsulin c peptide sulfonylurea screen beta hydroxybutyrate -obtain MRI A/P with and without contrast to better characterize pancreatic lesion -once lab values are drawn will resume octreotide and diazoxide -upon discharge will d/c home on diazoxide 150mg po TIDAC and acarbose 50mg po TIDAC Consultation Date/Type/Reason Admit Date/Time July 09, 2018 at 00:06 Initial Consult Date 07/09/18 Requesting Provider: NADIA DAVIS MD Date/Time of Note DATE: 07/10/18 TIME: 14:01 24 HR Interval Summary Free Text/Dictation Patient seen and examined with at bedside. Hypoglycemia noted and now placed on D10. Patient reports taking acarbose at home but not compliant with diazoxide. Exam/Review of Systems Exam Vitals Vital Signs Date Temp Pulse Resp B/P (MAP) Pulse Ox O2 O2 Flow FiO2 Time Delivery Rate 07/10/18 97.6 95 19 116/66 95 11:26 (83) 07/09/18 Room Air 07:15 Intake and Output 07/09/18 07/09/18 07/10/18 1515:00 23:00 07:00 IntakeIntake Total 1000 ml 2500 ml 2700 ml BalanceBalance 1000 ml 2500 ml 2700 ml Exam General: Comfortable in appearance, not in acute distress. Skin appropriate for ethnicity Eye: Extraocular movements are intact, Normal conjunctiva. HENT: Normocephalic, atraumatic. Respiratory: Respirations are non-labored, Breath sounds are equal, Symmetrical chest wall expansion. Cardiovascular: S1, S2. No murmur. No LE edema Gastrointestinal: Soft, Non-tender, Non-distended, Normal bowel sounds. Integumentary: Warm to touch. Neurologic: Alert, Oriented. Cognition and Speech: Speech clear and coherent, Functional cognition intact. Psychiatric: Cooperative, Appropriate mood & affect. Results Result Diagram: 07/08/18 2306 07/08/18 2304 Results 24hrs Laboratory Tests Test 07/09/18 14:07 07/09/18 17:59 07/09/18 22:36 07/10/18 01:39 Bedside Glucose 187 168 150 130 Test 07/10/18 06:30 07/10/18 10:05 07/10/18 11:10 07/10/18 11:36 Bedside Glucose 143 124 30 *L 89 Test 07/10/18 11:56 07/10/18 12:19 07/10/18 13:18 Bedside Glucose 83 95 Glucose Level 57 #L Medications Medication Current Medications Oxcarbazepine (Trileptal) 300 mg QHS PO Last administered on 07/09/18 20:06; Admin Dose 300 MG; Start 07/09/18 at 21:00 Propranolol HCl (Inderal) 20 mg BID PO Last administered on 07/09/18 20:06; Admin Dose 20 MG; Start 07/09/18 at 10:30 Quetiapine Fumarate (Seroquel) 300 mg HS PO Last administered on 07/09/18 20:05; Admin Dose 300 MG; Start 07/09/18 at 21:00 Zolpidem Tartrate (Ambien) 5 mg QHS PRN PO INSOMNIA Last administered on 07/09/18 22:32; Admin Dose 5 MG; Start 07/09/18 at 09:30 Diagnostic Test (Pha) (Accu-Chek) 1 ea Q4H XX Last administered on 07/10/18 10:05; Admin Dose 1 EA; Start 07/09/18 at 14:00 Octreotide Acetate (Sandostatin) 200 mcg Q8 SC Last administered on 07/10/18 10:42; Admin Dose 200 MCG; Start 07/09/18 at 12:00 Diazoxide (Proglycem (Ped)) 100 mg Q8 PO ; Start 07/09/18 at 22:00 Hydromorphone HCl (Dilaudid) 1 mg Q2H PRN IV SEVERE PAIN LEVEL 7-10 Last administered on 07/10/18 12:42; Admin Dose 1 MG; Start 07/09/18 at 19:30 Ondansetron HCl (Zofran Inj) 4 mg Q4H PRN IV NAUSEA AND/OR VOMITING Last administered on 07/10/18 10:41; Admin Dose 4 MG; Start 07/10/18 at 11:00 Dextrose 1,000 ml @ 200 mls/hr Q5H IV Last administered on 07/10/18 11:21; Admin Dose 200 MLS/HR; Start 07/10/18 at 11:30 RUFINA CABALLERO MD July 10, 2018 14:01
[2018-07-10] MEDS ORDERED: LORAZEPAM 2 MG INJ IV PRN (14:30)
[2018-07-10] MEDS: QUETIAPINE 100 MG TAB PO SCH (21:01)
[2018-07-10] MEDS: OXCARBAZEPINE 300 MG TAB PO SCH (21:02)
[2018-07-10] MEDS: DEXTROSE 50% 50 ML SYRINGE IV PRN (22:17)
[2018-07-10] MEDS: ZOLPIDEM 5 MG TAB PO PRN (22:21)
[2018-07-11] VITALS (10 sets, daily range): BP systolic 101–128; BP diastolic 64–78; PULSE 74–102; RESP 17–20
[2018-07-11] MEDS: DEXTROSE 50% 50 ML SYRINGE IV PRN ×4 (00:05→16:49)
[2018-07-11] MEDS: HYDROmorphONE 1 MG/ML SYG IV PRN ×9 (01:03→22:14)
[2018-07-11] MEDS: ACCU-CHEK XX SCH ×6 (02:00→21:34)
[2018-07-11] MEDS: DEXTROSE 10% 1,000 ML IV SCH ×6 (02:50→23:15)
[2018-07-11] MEDS: DIAZOXIDE (50 MG/ML PO SYG) PO SCH ×3 (06:00→21:34)
[2018-07-11] MEDS: PROPRANOLOL 20 MG TAB PO SCH ×2 (09:23→20:05)
[2018-07-11] MEDS: OCTREOTIDE 100 MCG INJ SC SCH ×3 (09:24→21:34)
[2018-07-11] MEDS: ONDANSETRON 4 MG INJ IV PRN (09:34)
--- NOTE | 2018-07-11 10:04 | PN ---
Date/Time of Note Date/Time of Note DATE: 07/11/18 TIME: 10:02 Subjective Doing well. Remains on D10 drip Objective Vitals Vital Signs Date Temp Pulse Resp B/P (MAP) Pulse Ox O2 O2 Flow FiO2 Time Delivery Rate 07/11/18 93 08:00 07/11/18 97.8 19 114/64 98 07:52 (81) 07/11/18 Room Air 05:51 Intake and Output 07/10/18 07/10/18 07/11/18 1515:00 23:00 07:00 IntakeIntake Total 700 ml 850 ml 300 ml BalanceBalance 700 ml 850 ml 300 ml Clear to auscultation bilaterally Regular rate and rhythm Soft nontender nondistended normoactive bowel sounds No edema Nonfocal Results Result Diagram: 07/08/18 2304 07/10/18 1318 Medications Medications Current Medications Oxcarbazepine (Trileptal) 300 mg QHS PO Last administered on 07/10/18at 21:02; Admin Dose 300 MG; Start 07/09/18 at 21:00 Propranolol HCl (Inderal) 20 mg BID PO Last administered on 07/11/18 09:23; Admin Dose 20 MG; Start 07/09/18 at 10:30 Quetiapine Fumarate (Seroquel) 300 mg HS PO Last administered on 07/10/18 21:01; Admin Dose 300 MG; Start 07/09/18 at 21:00 Zolpidem Tartrate (Ambien) 5 mg QHS PRN PO INSOMNIA Last administered on 07/10/18 22:21; Admin Dose 5 MG; Start 07/09/18 at 09:30 Diagnostic Test (Pha) (Accu-Chek) 1 ea Q4H XX Last administered on 07/11/18 06:13; Admin Dose 1 EA; Start 07/09/18 at 14:00 Octreotide Acetate (Sandostatin) 200 mcg Q8 SC Last administered on 07/11/18 09:24; Admin Dose 200 MCG; Start 07/09/18 at 12:00 Hydromorphone HCl (Dilaudid) 1 mg Q2H PRN IV SEVERE PAIN LEVEL 7-10 Last administered on 07/11/18 09:23; Admin Dose 1 MG; Start 07/09/18 at 19:30 Ondansetron HCl (Zofran Inj) 4 mg Q4H PRN IV NAUSEA AND/OR VOMITING Last administered on 07/11/18at 09:34; Admin Dose 4 MG; Start 07/10/18 at 11:00 Dextrose 1,000 ml @ 250 mls/hr Q4H IV Last administered on 07/11/18at 06:11; Admin Dose 250 MLS/HR; Start 07/10/18 at 11:30 Lorazepam (Ativan) 1 mg ONCE PRN IV NOTE; Start 07/10/18 at 14:30; Stop 07/11/18 at 23:00 Patient Own Medication 1 ea Q8 PO Last administered on 07/10/18at 16:52; Admin Dose 1 EA; Start 07/10/18 at 16:00 Dextrose (D50w Syringe) 50 ml [id number] PRN IV hypoglycemia Last administered on 07/11/18at 03:00; Admin Dose 50 ML; Start 07/10/18 at 15:30 VTE Prophylaxis Risk score (from Nsg)>0 risk: 3 SCD applied (from Nsg): Yes Lines/Catheters IV Catheter Type: Saline Lock Vora in Place: No Assessment/Plan Assessment/Plan 42-year-old male with persistent hypoglycemia due to recurrent insulinoma Anxiety disorder Chronic pain syndrome Drug-seeking behavior Noncompliance with medical therapy Continue D10 drip Continue octreotide 200 mcg every 8 hours Endocrine follow-up Discharge planning once blood sugars remain stable NADIA DAVIS MD July 11, 2018 10:04
--- NOTE | 2018-07-11 12:16 | CONS ---
Assessment/Plan Assessment/Plan Hospital Course (Demo Recall) Recurrent hypoglycemia -likely due to recurrent insulinoma, however need to confirm with blood test -pending insulin, proinsulin, c peptide, sulfonylurea screen, beta hydroxybutyrate results -obtain MRI A/P with and without contrast to better characterize pancreatic lesion. MRI without contrast showed no distinct pancreatic lesion -continue octreotide and diazoxide Q8H -upon discharge will d/c home on diazoxide 150mg po TIDAC and acarbose 50mg po TIDAC Consultation Date/Type/Reason Admit Date/Time July 10, 2018 at 15:55 Initial Consult Date 07/09/18 Requesting Provider: NADIA DAVIS MD Date/Time of Note DATE: 07/11/18 TIME: 12:14 24 HR Interval Summary Free Text/Dictation Patient seen and examined at bedside. He is tolerating octreotide with zofran, not consistently taking diazoxide. MRI A/P but IV contrast was not given Exam/Review of Systems Exam Vitals Vital Signs Date Temp Pulse Resp B/P (MAP) Pulse Ox O2 O2 Flow FiO2 Time Delivery Rate 07/11/18 98.3 77 17 128/77 98 11:12 (94) 07/11/18 Room Air 05:51 Intake and Output 07/10/18 07/10/18 07/11/18 1515:00 23:00 07:00 IntakeIntake Total 700 ml 850 ml 300 ml BalanceBalance 700 ml 850 ml 300 ml Exam General: Comfortable in appearance, not in acute distress. Skin appropriate for ethnicity Eye: Extraocular movements are intact, Normal conjunctiva. HENT: Normocephalic, atraumatic. Respiratory: Respirations are non-labored, Breath sounds are equal, Symmetrical chest wall expansion. Cardiovascular: S1, S2. No murmur. No LE edema Gastrointestinal: Soft, Non-tender, Non-distended, Normal bowel sounds. Integumentary: Warm to touch. Neurologic: Alert, Oriented. Cognition and Speech: Speech clear and coherent, Functional cognition intact. Psychiatric: Cooperative, Appropriate mood & affect. Results Result Diagram: 07/08/18 2301 07/10/18 1318 Results 24hrs Laboratory Tests Test 07/10/18 12:19 07/10/18 13:18 07/10/18 13:40 07/10/18 13:57 Bedside Glucose 95 52 L 72 Glucose Level 57 #L Test 07/10/18 14:08 07/10/18 14:19 07/10/18 15:01 07/10/18 15:11 Bedside Glucose 49 *L 43 *L 126 117 Test 07/10/18 18:07 07/10/18 22:05 07/10/18 22:41 07/11/18 02:55 Bedside Glucose 276 H 90 139 69 L Test 07/11/18 03:24 07/11/18 06:01 07/11/18 07:55 07/11/18 11:19 Bedside Glucose 192 201 194 153 Medications Medication Current Medications Oxcarbazepine (Trileptal) 300 mg QHS PO Last administered on 07/10/18 21:02; Admin Dose 300 MG; Start 07/09/18 at 21:00 Propranolol HCl (Inderal) 20 mg BID PO Last administered on 07/11/18 09:23; Admin Dose 20 MG; Start 07/09/18 at 10:30 Quetiapine Fumarate (Seroquel) 300 mg HS PO Last administered on 07/10/18 21:01; Admin Dose 300 MG; Start 07/09/18 at 21:00 Zolpidem Tartrate (Ambien) 5 mg QHS PRN PO INSOMNIA Last administered on 07/10/18 22:21; Admin Dose 5 MG; Start 07/09/18 at 09:30 Diagnostic Test (Pha) (Accu-Chek) 1 ea Q4H XX Last administered on 07/11/18 10:00; Admin Dose 1 EA; Start 07/09/18 at 14:00 Octreotide Acetate (Sandostatin) 200 mcg Q8 SC Last administered on 07/11/18 09:24; Admin Dose 200 MCG; Start 07/09/18 at 12:00 Hydromorphone HCl (Dilaudid) 1 mg Q2H PRN IV SEVERE PAIN LEVEL 7-10 Last administered on 07/11/18 11:34; Admin Dose 1 MG; Start 07/09/18 at 19:30 Ondansetron HCl (Zofran Inj) 4 mg Q4H PRN IV NAUSEA AND/OR VOMITING Last administered on 07/11/18 09:34; Admin Dose 4 MG; Start 07/10/18 at 11:00 Dextrose 1,000 ml @ 250 mls/hr Q4H IV Last administered on 07/11/18at 11:14; Admin Dose 250 MLS/HR; Start 07/10/18 at 11:30 Lorazepam (Ativan) 1 mg ONCE PRN IV NOTE; Start 07/10/18 at 14:30; Stop 07/11/18 at 23:00 Patient Own Medication 1 ea Q8 PO Last administered on 07/10/18at 16:52; Admin Dose 1 EA; Start 07/10/18 at 16:00 Dextrose (D50w Syringe) 50 ml [id number] PRN IV hypoglycemia Last administered on 07/11/18at 03:00; Admin Dose 50 ML; Start 07/10/18 at 15:30 RUFINA CABALLERO MD July 11, 2018 12:16
[2018-07-11] MEDS: OXCARBAZEPINE 300 MG TAB PO SCH (20:02)
[2018-07-11] MEDS: QUETIAPINE 100 MG TAB PO SCH (20:02)
[2018-07-11] MEDS: ZOLPIDEM 5 MG TAB PO PRN (22:14)
[2018-07-12] VITALS: BP 117/59; PULSE 89; RESP 17
[2018-07-12] MEDS: HYDROmorphONE 1 MG/ML SYG IV PRN ×7 (00:15→12:39)
[2018-07-12] MEDS: ACCU-CHEK XX SCH ×4 (02:31→14:38)
[2018-07-12] MEDS: DEXTROSE 10% 1,000 ML IV SCH ×4 (03:58→14:45)
[2018-07-12 04:00] VITALS: BP 109/60; PULSE 91; RESP 20
[2018-07-12] MEDS: DIAZOXIDE (50 MG/ML PO SYG) PO SCH ×2 (06:00→14:00)
[2018-07-12] MEDS: ONDANSETRON 4 MG INJ IV PRN ×2 (06:08→08:35)
[2018-07-12] MEDS: OCTREOTIDE 100 MCG INJ SC SCH ×2 (06:08→14:41)
[2018-07-12 07:28] VITALS: BP 108/66; PULSE 96; RESP 19
[2018-07-12] MEDS: PROPRANOLOL 20 MG TAB PO SCH (08:35)
--- NOTE | 2018-07-12 10:47 | PN ---
Date/Time of Note Date/Time of Note DATE: 07/12/18 TIME: 10:45 Subjective Doing well. No new complaints. Objective Vitals Vital Signs Date Temp Pulse Resp B/P (MAP) Pulse Ox O2 O2 Flow FiO2 Time Delivery Rate 07/12/18 98.2 96 19 108/66 95 Room Air 07:28 (80) Intake and Output 07/11/18 07/11/18 07/12/18 1515:00 23:00 07:00 IntakeIntake Total 1000 ml 1550 ml 400 ml BalanceBalance 1000 ml 1550 ml 400 ml Clear to auscultation bilaterally Regular rate and rhythm Soft nontender nondistended normoactive bowel sounds No edema Nonfocal Results Result Diagram: 07/08/18 2304 07/10/18 1318 Medications Medications Current Medications Oxcarbazepine (Trileptal) 300 mg QHS PO Last administered on 07/11/18 20:02; Admin Dose 300 MG; Start 07/09/18 at 21:00 Propranolol HCl (Inderal) 20 mg BID PO Last administered on 07/12/18 08:35; Admin Dose 20 MG; Start 07/09/18 at 10:30 Quetiapine Fumarate (Seroquel) 300 mg HS PO Last administered on 07/11/18 20:02; Admin Dose 300 MG; Start 07/09/18 at 21:00 Zolpidem Tartrate (Ambien) 5 mg QHS PRN PO INSOMNIA Last administered on 07/11/18 22:14; Admin Dose 5 MG; Start 07/09/18 at 09:30 Diagnostic Test (Pha) (Accu-Chek) 1 ea Q4H XX Last administered on 07/12/18 10:27; Admin Dose 1 EA; Start 07/09/18 at 14:00 Octreotide Acetate (Sandostatin) 200 mcg Q8 SC Last administered on 07/12/18 06:08; Admin Dose 200 MCG; Start 07/09/18 at 12:00 Hydromorphone HCl (Dilaudid) 1 mg Q2H PRN IV SEVERE PAIN LEVEL 7-10 Last administered on 07/12/18 10:33; Admin Dose 1 MG; Start 07/09/18 at 19:30 Ondansetron HCl (Zofran Inj) 4 mg Q4H PRN IV NAUSEA AND/OR VOMITING Last administered on 07/12/18 08:35; Admin Dose 4 MG; Start 07/10/18 at 11:00 Dextrose 1,000 ml @ 100 mls/hr Q10H IV Last administered on 07/12/18 08:42; Admin Dose 250 MLS/HR; Start 07/10/18 at 11:30 Patient Own Medication 1 ea Q8 PO Last administered on 07/11/18 14:41; Admin Dose 1 EA; Start 07/10/18 at 16:00 Dextrose (D50w Syringe) 50 ml [id number] PRN IV hypoglycemia Last administered on 07/11/18 16:49; Admin Dose 50 ML; Start 07/10/18 at 15:30 VTE Prophylaxis Risk score (from Nsg)>0 risk: 3 SCD applied (from Nsg): Yes Lines/Catheters IV Catheter Type: Saline Lock Vora in Place: No Assessment/Plan Assessment/Plan 42-year-old male with persistent hypoglycemia due to undetected insulinoma History of insulinoma Status post partial pancreatectomy in 2005 Drug-seeking behavior Anxiety disorder Decrease D10 to 100 cc an hour and continue to monitor blood sugar Endocrine follow-up NADIA DAVIS MD July 12, 2018 10:47
[2018-07-12 11:49] VITALS: BP 113/75; PULSE 96; RESP 19
[2018-07-12 15:29] VITALS: BP 116/71; PULSE 94; RESP 20
== END 2018-07-12 16:10 | disposition left against medical advice (07) | DRG 641 ==
LOC: E/R 21:10 → 6WM 07-09 00:06 → OBSVTOIN 07-10 15:55
PROVIDERS: ADMIT Internal Medicine; ATTEND Internal Medicine
DX: E16.2 Hypoglycemia, unspecified (principal); F11.20 Opioid dependence, uncomplicated; D37.8 Neoplasm of uncertain behavior of other specified digestive organs; G89.4 Chronic pain syndrome; F41.9 Anxiety disorder, unspecified; Z72.0 Tobacco use; Z91.14 Patient's other noncompliance with medication regimen; Z76.5 Malingerer [conscious simulation]
CPT/HCPCS: 72195; 72197; 74181; 74183; 80048; 82947; 82962; 83525; 84681; 85025; 96374; 96375; G0378; J1170; J2060; J2354; J2405

== ENCOUNTER 2018-09-06 19:21 | Inpatient (IN) | payer OTHER ==
[~2018-09-06] VITALS: Ht 170.2 cm; Wt 73.8 kg
[~2018-09-06 19:21] MED LIST changes: +OCTR100V2 SC; -OCTR50DI2 SC
[2018-09-06] MEDS ORDERED: GLUCAGON 1 MG INJ IM STA (19:42)
[2018-09-06] MEDS ORDERED: DEXTROSE 50% 50 ML SYRINGE IV STA (19:42)
[2018-09-06] MEDS ORDERED: DEXTROSE 10% 1,000 ML IV STA (19:42)
--- NOTE | 2018-09-06 20:01 | ERD ---
ER Documentation Chief Complaint Chief Complaint states hypoglycemia at home, gave self glucose at home HPI 42-year-old male with a history of recurrent insulinoma presenting with hypoglycemic episodes prior to arrival. Patient states that he felt that he was hypoglycemic while at work today. He checked his sugar and it was in the 20s. He self-administered glucagon and came to the ER for evaluation. He does endorse upper abdominal pain radiating to his back for the past 2 weeks that have been constant and worsening. He has had associated nausea with intermittent vomiting. No fever, chills, diarrhea, constipation. He does have an Public Health Technician but does not know her name. Apparently the location of his insulinoma is unclear at this time. ROS All systems reviewed and are negative except as per history of present illness. Medications Home Meds Active Scripts Octreotide Acetate (Octreotide Acetate) 100 Mcg/1 Ml Vial, 200 MCG SC Q8 for 30 Days, VIAL 2 Refills Prov:NADIA DAVIS MD 07/10/18 Oxycodone HCl/Acetaminophen (Percocet 10-325 mg Tablet) 1 Each Tablet, 1 EACH PO Q6 PRN for PAIN, #20 TAB Prov:JULISA SANTO 08/13/17 Ondansetron Hcl* (Zofran*) 8 Mg Tab, 8 MG PO Q8 for nausea, #90 TAB 3 Refills Can be taken 30 minutes prior to subcu injection of octreotide to minimize/prevent nausea Prov:JULISA SANTO 08/13/17 Reported Medications Zolpidem Tartrate* (Zolpidem Tartrate*) 5 Mg Tablet, 5 MG PO QHS PRN for INSOMNIA, #30 TAB 08/10/17 Quetiapine Fumarate* (Seroquel*) 300 Mg Tablet, 300 MG PO HS, TAB 08/10/17 Propranolol Hcl* (Propranolol Hcl*) 20 Mg Tablet, 20 MG PO BID, TAB 08/10/17 Oxcarbazepine* (Oxcarbazepine*) 300 Mg Tablet, 300 MG PO QHS, TAB 08/10/17 Diphenhydramine Hcl* (Benadryl*) 50 Mg Cap, 50 MG PO DAILY PRN for ITCHING, CAP 08/10/17 Allergies Allergies: Coded Allergies: iodine (Verified Allergy, Intermediate, 08/12/17) morphine (Verified Allergy, Intermediate, rashes/itchiness, 08/12/17) fluoxetine (Verified Allergy, Unknown, 08/12/17) ketorolac (Verified Allergy, Unknown, 08/12/17) meperidine (Verified Allergy, Unknown, 08/12/17) sulfamethoxazole (Verified Allergy, Unknown, 08/12/17) trimethoprim (Verified Allergy, Unknown, 08/12/17) PMhx/Soc History of Surgery: Yes (partial pancreas removal, galbladder removal, appendix removed) Anesthesia Reaction: No Hx Neurological Disorder: No Hx Respiratory Disorders: Yes (ASTHMA) Hx Cardiac Disorders: No Hx Psychiatric Problems: Yes (anxiety, depression) Hx Miscellaneous Medical Probl: Yes (Recurrent insulinoma) Hx Alcohol Use: No Hx Substance Use: No Hx Tobacco Use: Yes (2 packs a day) FmHx Family History: No diabetes Physical Exam Vitals Vital Signs Date Temp Pulse Resp B/P (MAP) Pulse Ox O2 O2 Flow FiO2 Time Delivery Rate 09/07/18 68 16 130/67 100 Room Air 00:00 (88) 09/06/18 77 16 107/66 100 Room Air 23:00 (80) 09/06/18 68 22 113/65 100 Room Air 22:00 (81) 09/06/18 75 23 109/74 100 Room Air 21:00 (86) 09/06/18 75 18 112/70 99 Room Air 20:01 (84) 09/06/18 97.1 77 18 140/82 99 19:25 (101) Physical Exam Const: No acute distress Head: Atraumatic Eyes: Normal Conjunctiva ENT: Dry mucous membranes. Normal External Ears, Nose and Mouth. Neck: Full range of motion. No meningismus. Resp: Clear to auscultation bilaterally Cardio: Regular rate and rhythm, no murmurs Abd: Soft, tender in the epigastric area without rebound or guarding., non distended. Normal bowel sounds Skin: No petechiae or rashes Back: No midline or flank tenderness Ext: No cyanosis, or edema Neur: Awake and alert, oriented x3, normal speech, no facial asymmetry, moving all extremities Psych: Normal Mood and Affect Result Diagram: 09/06/18195609/06/181956 Results 24 hrs Laboratory Tests Test 09/06/18 19:25 09/06/18 19:45 09/06/18 19:56 7/18/19 19:57 Bedside Glucose 94 mg/dL 32 mg/dL 274 mg/dL White Blood Count 7.8 10^3/ul Red Blood Count 4.72 10^6/ul Hemoglobin 13.3 g/dl Hematocrit 39.6 % Mean Corpuscular 83.9 fl Volume Mean Corpuscular 28.2 pg Hemoglobin Mean Corpuscular 33.6 g/dl Hemoglobin Concent Red Cell 13.0 % Distribution Width Platelet Count 198 10^3/UL Mean Platelet 10.4 fl Volume Immature 0.300 % Granulocytes % Neutrophils % 63.8 % Lymphocytes % 32.7 % Monocytes % 2.6 % Eosinophils % 0.5 % Basophils % 0.1 % Nucleated Red Blood 0.0 /100WBC Cells % Immature 0.020 10^3/ul Granulocytes # Neutrophils # 5.0 10^3/ul Lymphocytes # 2.6 10^3/ul Monocytes # 0.2 10^3/ul Eosinophils # 0.0 10^3/ul Basophils # 0.0 10^3/ul Nucleated Red Blood 0.0 10^3/ul Cells # Sodium Level 145 mmol/L Potassium Level 3.1 mmol/L Chloride Level 108 mmol/L Carbon Dioxide 27 mmol/L Level Anion Gap 10 Blood Urea Nitrogen 17 mg/dl Creatinine 1.02 mg/dl Est Glomerular > 60 mL/min Filtrat Rate mL/min Glucose Level 296 mg/dl Calcium Level 9.8 mg/dl Total Bilirubin 0.5 mg/dl Direct Bilirubin 0.00 mg/dl Indirect Bilirubin 0.5 mg/dl Aspartate Amino 103 IU/L Transf (AST/SGOT) Alanine 107 IU/L Aminotransferase (A LT/SGPT) Alkaline 405 IU/L Phosphatase Total Protein 7.5 g/dl Albumin 4.4 g/dl Globulin 3.10 g/dl Albumin/Globulin 1.41 Ratio Lipase 391 U/L Test 09/06/18 20:50 09/06/18 21:47 09/06/18 22:29 09/06/18 22:57 Bedside Glucose 121 mg/dL 51 mg/dL 101 mg/dL 91 mg/dL Test 09/06/18 23:19 09/06/18 23:48 09/07/18 00:27 Bedside Glucose 85 mg/dL 155 mg/dL 144 mg/dL Current Medications Medications Dose Sig/Bhakti Start Time Status Last (Trade) Ordered Route PRN Stop Time Admin Dose Reason Admin Dextrose 50 ml ONCE STAT 09/06/18 DC 09/06/18 (D50w IV 19:42 19:52 Syringe) 09/06/18 19:44 Dextrose 1,000 ml @ Q5H STAT 09/06/18 DC 09/06/18 200 mls/hr IV 19:42 19:53 09/06/18 21:35 Glucagon 1 mg ONCE STAT 09/06/18 DC 09/06/18 (Glucagen) IM 19:42 19:48 09/06/18 19:44 1 mg ONCE STAT 09/06/18 DC 09/06/18 Hydromorphone IV 20:54 21:01 HCl 09/06/18 20:56 (Dilaudid) Ondansetron 4 mg ONCE STAT 09/06/18 DC 09/06/18 HCl (Zofran IV 20:54 21:01 Inj) 09/06/18 20:56 Potassium 40 meq ONCE STAT 09/06/18 DC 09/06/18 Chloride PO 21:23 21:32 (Klor-Con 20) 09/06/18 21:25 Potassium 100 ml @ Q2H IVPB 09/06/18 09/07/18 Chloride 50 mls/hr 21:30 00:18 09/07/18 01:29 Magnesium 50 ml @ 25 ONCE ONCE 09/06/18 DC 09/06/18 Sulfate mls/hr IVPB 21:30 21:32 09/06/18 23:29 Dextrose 1,000 ml @ Q4H IV 09/06/18 09/07/18 250 mls/hr 22:00 00:18 Dextrose 25 ml ONCE ONCE 09/06/18 DC (D50w IV 22:30 Syringe) 09/06/18 22:31 Dextrose 50 ml ONCE ONCE 09/06/18 DC 09/06/18 (D50w IV 22:14 22:19 Syringe) 09/06/18 22:17 IV Flush 10 ml STK-MED 09/06/18 DC (NS 10 ml) ONCE .ROUTE 22:52 09/06/18 22:53 Sodium 100 ml @ ud STK-MED 09/06/18 DC Chloride ONCE .ROUTE 22:52 09/06/18 22:53 Iohexol 150 ml STK-MED 09/06/18 DC (Omnipaque ONCE .ROUTE 22:52 300mg/ ml) 09/06/18 22:53 0.5 mg ONCE STAT 09/06/18 DC 09/06/18 Hydromorphone IV 23:39 23:42 HCl 09/06/18 23:40 (Dilaudid) Octreotide 200 mcg Q8 SC 09/07/18 DC Acetate 01:00 (Sandostatin) 09/07/18 01:00 Ondansetron 4 mg Q4 PRN IV 09/07/18 HCl (Zofran NAUSEA 01:00 Inj) Octreotide 200 mcg Q8H SC 09/07/18 Acetate 01:00 (Sandostatin) Dextrose 250 ml @ Q1H IV 09/07/18 250 mls/hr 01:00 100 ml @ ONCE ONCE 09/07/18 UNV Acetaminophen 400 mls/hr IVPB 01:00 09/07/18 01:14 Diagnostic 1 ea Q1H RESP 09/07/18 UNV Test (Pha) THERAPY XX 01:00 (Accu-Chek) 1 mg Q4 PRN IV 09/07/18 UNV Hydromorphone PAIN LEVEL 01:00 HCl 1-5 (Dilaudid) Oxycodone/ 1 tab Q4 PRN PO 09/07/18 UNV Acetaminophen PAIN LEVEL 01:00 (Percocet 1-5 (5/ 325)) Procedures/MDM EMERGENT LABS AND DIAGNOSTIC STUDIES: Lab Results above were reviewed and interpreted by me. CBC: no anemia or evidence of infection CMP: Hyperglycemia, status post administration of D50. Hypokalemic. Transaminitis with elevated alkaline phosphatase. no evidence of acidosis, renal failure Lipase: no evidence of pancreatitis Radiology: CT abdomen and pelvis: Pending at time of admission Initial Nursing notes reviewed. Previous Medical Records requested via the Electronic Health Record. EMERGENCY DEPARTMENT COURSE / MEDICAL DECISION MAKING: Patient is presenting with complaints of hypoglycemia prior to arrival. Init aidee when he arrived here, Accu-Chek was normal. However soon after, his blood sugar dropped to the 30s and the patient was symptomatic. IV was placed and he was given IV D50, glucagon IM, and he was started on a D10 W drip. Labs showed hypokalemia which was supplemented orally and with IV potassium as well as magnesium. Labs showed elevation of liver enzymes with elevation of alk phosphatase. Given his abdominal pain, CT abdomen and pelvis was ordered and is pending. Patient had multiple hypoglycemic episodes in the ER despite being on a dextrose drip. He continuously had to titrate the drip up to keep his blood sugars within normal limits. He got multiple doses of D50 as well. Patient is critically unstable and will require admission to the ICU for further stabilization. The admitting physician asked me to contact endocrinology, and I spoke with Dr. Lee, who had no further recommendations. Critical Care Time: 65 minutes Treatments/Evaluations: Close monitoring and treatment of unstable vital signs, cardiorespiratory, and neurologic status, while maintaining tight balance of fluid, respiratory, and cardiac interventions. This time includes discussing the case with the patient and the patients family. This time does not include all procedures stated elsewhere in this record. This time also includes reviewing old records, labs and radiological studies. This time includes examining and re- examining the patient. Additionally, this time also includes arranging care with admitting and consulting physicians. Accepting Care Team: Current data and ongoing care discussed. Time: Time of admission Primary Provider: Dr. Rolle Consulting: Dr. Lee with endocrinology Outstanding Data: Results of CT abdomen and pelvis Departure Diagnosis: Primary Impression: Hypoglycemia Additional Impressions: Insulinoma Abdominal pain Abdominal location: upper abdomen, unspecified Qualified Codes: R10.10 - Upper abdominal pain, unspecified Hypokalemia Transaminitis Elevated alkaline phosphatase level Condition: Critical EKSCOOBY HAWKINS MD Sep 06, 2018 20:00
[2018-09-06] MEDS ORDERED: ONDANSETRON 4 MG INJ IV STA (20:54)
[2018-09-06] MEDS ORDERED: HYDROmorphONE 1 MG/ML SYG IV STA (20:54)
[2018-09-06] MEDS ORDERED: POTASSIUM CHLORIDE (SR) 20 MEQ TAB PO STA (21:23)
[2018-09-06] MEDS ORDERED: MAGNESIUM SULFATE 2 GM/50 ML 50 ML IVPB ONE (21:30)
[2018-09-06] MEDS ORDERED: DEXTROSE 50% 50 ML SYRINGE IV ONE ×2 (22:14→22:30)
[2018-09-06] MEDS: DEXTROSE 10% 1,000 ML IV SCH (22:16)
[2018-09-06] MEDS: POTASSIUM CHLORIDE 100 ML IVPB SCH (22:18)
[2018-09-06] MEDS ORDERED: IOHEXOL 300MG/ML 150 ML BTL ONE (22:52)
[2018-09-06] MEDS ORDERED: SOD CHLORIDE 0.9% 100 ML ONE (22:52)
[2018-09-06] MEDS ORDERED: HYDROmorphONE 0.5 MG/0.5 ML SYG IV STA (23:39)
[2018-09-07] MEDS: POTASSIUM CHLORIDE 100 ML IVPB SCH (00:18)
[2018-09-07] MEDS: DEXTROSE 10% 1,000 ML IV SCH ×5 (00:18→18:14)
[2018-09-07] MEDS ORDERED: OCTREOTIDE 50 MCG INJ SC SCH (01:00)
[2018-09-07] MEDS ORDERED: ACETAMINOPHEN 1000MG/100ML IV 100 ML IVPB ONE (01:00)
[2018-09-07] MEDS: ACCU-CHEK XX SCH ×18 (01:00→18:00)
[2018-09-07] MEDS ORDERED: DEXTROSE 10% 250 ML IV SCH (01:00)
[2018-09-07] MEDS: OCTREOTIDE 100 MCG INJ SC SCH ×3 (01:00→17:00)
[2018-09-07] MEDS: ONDANSETRON 4 MG INJ IV PRN ×2 (01:02→04:34)
[2018-09-07] MEDS: HYDROmorphONE 1 MG/ML SYG IV PRN ×4 (01:02→12:45)
[2018-09-07] MEDS ORDERED: OXYC20TA59 PO (02:07)
[2018-09-07] MEDS ORDERED: ERGO500013 PO (02:07)
[2018-09-07] MEDS ORDERED: MORP15TA3 PO (02:07)
[2018-09-07] MEDS ORDERED: ATOR20TA65 PO (02:07)
[2018-09-07] MEDS ORDERED: DIPH25TA27 PO (02:07)
[2018-09-07] MEDS: OXYCODONE/ACETAMINOPHEN (5/325) TAB PO PRN ×3 (03:14→16:00)
[2018-09-07] MEDS ORDERED: OXCA300T41 PO (04:15)
[2018-09-07] MEDS ORDERED: ZOLPIDEM 5 MG TAB PO PRN (04:30)
[2018-09-07] MEDS: oxyCODONE (CR) 20 MG TAB [oxyCONTIN] PO SCH ×2 (07:00→17:13)
[2018-09-07] MEDS ORDERED: PROPRANOLOL 20 MG TAB PO SCH (09:00)
[2018-09-07] MEDS ORDERED: METHYLPREDNISOLONE 125 MG INJ IV ONE (13:30)
--- NOTE | 2018-09-07 13:36 | CONS ---
Assessment/Plan Assessment/Plan Problems: (1) Hypoglycemia Status: Acute Comment: Is most likely due to hyperinsulinism. We will put him back on his diazoxide, carbose, and octreotide and get him stabilized. Ultimately what needs to happen here is for the staff at [facility] to get him over to the [facility] as [facility] do not have the equipment to perform this evaluation. We ended up being in the position that if we were forced to treat he have to just have a blind pancreatectomy. He may end up with that anyway. CC: LIZ CUEVAS MD; NADIA DAVIS MD; RUFINA CABALLERO MD ; Consultation Date/Type/Reason Admit Date/Time September 06, 2018 Date of Consultation: Sep 07, 2018 Type of Consult Endocrinology Reason for Consultation Hyperinsulinism with hypoglycemia; status post distal pancreatectomy for hyperinsulinism; multiple recent imaging studies without identification of the source of the elevated insulin Requesting Provider: NADIA DAVIS MD Date/Time of Note DATE: 09/07/18 TIME: 13:29 Hx of Present Illness 42-year-old gentleman with a roughly 2-year history of recurrent hypoglycemia. Initial evaluation was felt to be consistent with insulinoma and he was evaluated and treated in the [facility] with a distal pancreatectomy. Please note he also had a cholecystectomy. Not have a history of obesity and is not had bariatric surgical procedures. Postoperatively he has had recurrent symptoms despite the surgery. Multiple imaging studies including multiple MRI scans CT scans ultrasounds etc. have not identified the source. He has elevated total insulin level while sugars are down, and low but measurable C-peptide's. beta hydroxybutyrate results are not in the chart. Is come in again. He also has issues of tolerance of the octreotide which induces nausea and vomiting despite coadministration with Zofran. He was supposed to been referred via his insurance to [facility] for endoscopic ultrasound versus laparoscopy with consideration towards possible pancreatectomy however according the patient there has been a breakdown in communication at the [facility], [facility] Constitutional: no complaints Eyes: no complaints ENT: no complaints Respiratory: no complaints Cardiovascular: no complaints Gastrointestinal: no complaints Genitourinary: no complaints Musculoskeletal: no complaints Skin: no complaints Past Medical History Medical History: other (Hyperinsulinism) Home Meds Active Scripts Oxycodone HCl/Acetaminophen (Percocet 10-325 mg Tablet) 1 Each Tablet, 1 EACH PO Q6 PRN for PAIN, #20 TAB Prov:JULISA SANTO Alexis 08/13/17 Ondansetron Hcl* (Zofran*) 8 Mg Tab, 8 MG PO Q8 for nausea, #90 TAB 3 Refills Can be taken 30 minutes prior to subcu injection of octreotide to minimize/prevent nausea Prov:JULISA SANTO F 08/13/17 Reported Medications Oxcarbazepine* (Oxcarbazepine*) 300 Mg Tablet, 300 MG PO QHS PRN for INSOMNIA, TAB 09/07/18 Atorvastatin Calcium (Atorvastatin Calcium) 20 Mg Tablet, 20 MG PO QHS for 90 Days, #90 09/07/18 Ergocalciferol (Vitamin D2) (VITAMIN D2) 50,000 Unit Capsule, 1 CAP PO Q7D 09/07/18 Oxycodone HCl (Oxycodone HCl ER) 20 Mg Tab.er.12h, 20 MG PO Q12H for 30 Days 09/07/18 Morphine Sulfate (Morphine Sulfate ER) 15 Mg Tablet.er, 15 MG PO DAILY for 30 Days 09/07/18 Diphenhydramine Hcl (Banophen) 25 Mg Tablet, 25 MG PO DAILY PRN for ITCHING for 30 Days 09/07/18 Zolpidem Tartrate* (Zolpidem Tartrate*) 5 Mg Tablet, 5 MG PO QHS PRN for INSOMNIA, #30 TAB 08/10/17 Quetiapine Fumarate* (Seroquel*) 300 Mg Tablet, 300 MG PO HS, TAB 08/10/17 Propranolol Hcl* (Propranolol Hcl*) 20 Mg Tablet, 20 MG PO BID, TAB 08/10/17 Oxcarbazepine* (Oxcarbazepine*) 300 Mg Tablet, 300 MG PO QHS, TAB 08/10/17 Discontinued Reported Medications Diphenhydramine Hcl* (Benadryl*) 50 Mg Cap, 50 MG PO DAILY PRN for ITCHING, CAP 08/10/17 Discontinued Scripts Octreotide Acetate (Octreotide Acetate) 100 Mcg/1 Ml Vial, 200 MCG SC Q8 for 30 Days, VIAL 2 Refills Prov:NADIA DAVIS MD 07/10/18 Medications Current Medications Dextrose 1,000 ml @ 400 mls/hr Q2H30M IV Last administered on 7/19/19at 11:47; Admin Dose 400 MLS/HR; Start 09/06/18 at 22:00 Ondansetron HCl (Zofran Inj) 4 mg Q4 PRN IV NAUSEA Last administered on 09/07/18 04:34; Admin Dose 4 MG; Start 09/07/18 at 01:00 Octreotide Acetate (Sandostatin) 200 mcg Q8H SC Last administered on 09/07/18 04:35; Admin Dose 200 MCG; Start 09/07/18 at 01:00 Diagnostic Test (Pha) (Accu-Chek) 1 ea Q1H RESP THERAPY XX ; Start 09/07/18 at 01:00 Oxycodone/ Acetaminophen (Percocet (5/ 325)) 1 tab Q4 PRN PO PAIN LEVEL 1-5 Last administered on 09/07/18 11:53; Admin Dose 1 TAB; Start 09/07/18 at 01:00 Atorvastatin Calcium (Lipitor) 20 mg QHS PO ; Start 09/07/18 at 21:00 Oxycodone HCl (Oxycontin) 20 mg Q12H PO Last administered on 09/07/18 07:00; Admin Dose 20 MG; Start 09/07/18 at 04:30 Propranolol HCl (Inderal) 20 mg BID PO Last administered on 09/07/18 11:46; Admin Dose 20 MG; Start 09/07/18 at 09:00 Quetiapine Fumarate (Seroquel) 300 mg HS PO ; Start 09/07/18 at 21:00 Zolpidem Tartrate (Ambien) 5 mg QHS PRN PO INSOMNIA; Start 09/07/18 at 04:30 Allergies: Coded Allergies: iodine (Unverified Allergy, Intermediate, 09/07/18) morphine (Unverified Allergy, Intermediate, rashes/itchiness, 09/07/18) fluoxetine (Unverified Allergy, Unknown, 09/07/18) ketorolac (Unverified Allergy, Unknown, 09/07/18) meperidine (Unverified Allergy, Unknown, 09/07/18) sulfamethoxazole (Unverified Allergy, Unknown, 09/07/18) trimethoprim (Unverified Allergy, Unknown, 09/07/18) Past Surgical History Past Surgical Hx: cholecystectomy, other (Status post distal pancreatectomy) Family History Significant Family History: no pertinent family hx Social History Alcohol Use: occasionally Smoking Status: Current every day smoker Drug Use: none Exam/Review of Systems Exam Vitals Vital Signs Date Temp Pulse Resp B/P (MAP) Pulse Ox O2 O2 Flow FiO2 Time Delivery Rate 09/07/18 98.4 74 12 115/79 99 Room Air 11:56 (91) Intake and Output 09/06/18 09/06/18 09/07/18 1515:00 23:00 07:00 IntakeIntake Total 400 ml BalanceBalance 400 ml Constitutional: alert, oriented Neck: supple, non-tender Respiratory: clear to auscultation, normal air movement Cardiovascular: regular rate and rhythm, nl pulses Gastrointestinal: soft, nl liver, spleen, non-tender Results Result Diagram: 09/07/18 0530 09/07/18 0530 Results 24hrs Laboratory Tests Test 09/06/18 19:25 09/06/18 19:45 09/06/18 19:56 09/06/18 19:57 Bedside Glucose 94 32 *L 274 H White Blood Count 7.8 Red Blood Count 4.72 Hemoglobin 13.3 L Hematocrit 39.6 L Mean Corpuscular 83.9 Volume Mean Corpuscular 28.2 L Hemoglobin Mean Corpuscular 33.6 Hemoglobin Concent Red Cell 13.0 Distribution Width Platelet Count 198 # Mean Platelet Volume 10.4 Immature 0.300 Granulocytes % Neutrophils % 63.8 Lymphocytes % 32.7 Monocytes % 2.6 Eosinophils % 0.5 Basophils % 0.1 Nucleated Red Blood 0.0 Cells % Immature 0.020 Granulocytes # Neutrophils # 5.0 Lymphocytes # 2.6 Monocytes # 0.2 L Eosinophils # 0.0 Basophils # 0.0 Nucleated Red Blood 0.0 Cells # Sodium Level 145 H Potassium Level 3.1 L Chloride Level 108 Carbon Dioxide Level 27 Anion Gap 10 Blood Urea Nitrogen 17 Creatinine 1.02 Est Glomerular > 60 Filtrat Rate mL/min Glucose Level 296 H Calcium Level 9.8 Total Bilirubin 0.5 Direct Bilirubin 0.00 Indirect Bilirubin 0.5 Aspartate Amino 103 H Transf (AST/SGOT) Alanine 107 H Aminotransferase (AL T/SGPT) Alkaline Phosphatase 405 H Total Protein 7.5 Albumin 4.4 Globulin 3.10 Albumin/Globulin 1.41 Ratio Lipase 391 H Test 09/06/18 20:50 09/06/18 21:47 09/06/18 22:29 09/06/18 22:57 Bedside Glucose 121 51 L 101 91 Test 09/06/18 23:19 09/06/18 23:48 09/07/18 00:27 09/07/18 01:31 Bedside Glucose 85 155 144 110 Test 09/07/18 02:30 09/07/18 03:30 09/07/18 04:36 09/07/18 05:30 Bedside Glucose 122 93 149 White Blood Count 5.0 # Red Blood Count 4.49 L Hemoglobin 12.6 L Hematocrit 36.9 L Mean Corpuscular 82.2 Volume Mean Corpuscular 28.1 L Hemoglobin Mean Corpuscular 34.1 Hemoglobin Concent Red Cell 12.6 Distribution Width Platelet Count 115 #L Mean Platelet Volume 11.2 H Immature 0.200 Granulocytes % Neutrophils % 71.6 Lymphocytes % 18.6 Monocytes % 8.8 Eosinophils % 0.6 Basophils % 0.2 Nucleated Red Blood 0.0 Cells % Immature 0.010 Granulocytes # Neutrophils # 3.6 Lymphocytes # 0.9 Monocytes # 0.4 Eosinophils # 0.0 Basophils # 0.0 Nucleated Red Blood 0.0 Cells # Sodium Level 138 Potassium Level 3.9 Chloride Level 107 Carbon Dioxide Level 25 Anion Gap 6 Blood Urea Nitrogen 11 Creatinine 0.68 Est Glomerular > 60 Filtrat Rate mL/min Glucose Level 182 # Calcium Level 9.0 Lipase 262 Test 09/07/18 05:31 09/07/18 06:34 09/07/18 08:39 09/07/18 09:36 Bedside Glucose 196 195 294 H 237 H Test 09/07/18 10:30 09/07/18 11:50 09/07/18 12:44 Bedside Glucose 270 H 163 140 Medications Medication Current Medications Dextrose 1,000 ml @ 400 mls/hr Q2H30M IV Last administered on 09/07/18at 11:47; Admin Dose 400 MLS/HR; Start 09/06/18 at 22:00 Ondansetron HCl (Zofran Inj) 4 mg Q4 PRN IV NAUSEA Last administered on 09/07/18at 04:34; Admin Dose 4 MG; Start 09/07/18 at 01:00 Octreotide Acetate (Sandostatin) 200 mcg Q8H SC Last administered on 09/07/18at 04:35; Admin Dose 200 MCG; Start 09/07/18 at 01:00 Diagnostic Test (Pha) (Accu-Chek) 1 ea Q1H RESP THERAPY XX ; Start 09/07/18 at 01:00 Oxycodone/ Acetaminophen (Percocet (5/ 325)) 1 tab Q4 PRN PO PAIN LEVEL 1-5 Last administered on 09/07/18at 11:53; Admin Dose 1 TAB; Start 09/07/18 at 01:00 Atorvastatin Calcium (Lipitor) 20 mg QHS PO ; Start 09/07/18 at 21:00 Oxycodone HCl (Oxycontin) 20 mg Q12H PO Last administered on 09/07/18at 07:00; Admin Dose 20 MG; Start 09/07/18 at 04:30 Propranolol HCl (Inderal) 20 mg BID PO Last administered on 09/07/18at 11:46; Admin Dose 20 MG; Start 09/07/18 at 09:00 Quetiapine Fumarate (Seroquel) 300 mg HS PO ; Start 09/07/18 at 21:00 Zolpidem Tartrate (Ambien) 5 mg QHS PRN PO INSOMNIA; Start 09/07/18 at 04:30 CHELSIE HAN MD Sep 07, 2018 13:36
[2018-09-07] MEDS ORDERED: DIAZOXIDE (50 MG/ML PO SYG) PO SCH (14:00)
--- NOTE | 2018-09-07 14:18 | HP ---
DATE OF ADMISSION: 09/06/2018 CHIEF COMPLAINT: Low blood sugar. HISTORY OF PRESENT ILLNESS: A 42-year-old male with history of insulinoma and multiple admissions in the past for hypoglycemia, presented to the Emergency Room with complaint of low blood sugars noted at work. The patient checked his sugar and it was in the 20s. The patient gave himself Glucagon and he presented to the Emergency Room. The patient also has chronic pain syndrome and is narcotic depe ndent. Initial evaluation revealed serum glucose as low as 32. The patient was started on a D10 dri p. Serum potassium was low at 3.1. He received supplementation, with repeat potassium of 3.9. Bloo d sugars have remained stable following D10 infusion. PAST MEDICAL HISTORY: 1. History of insulinoma. 2. Chronic pain syndrome, on high dose narcotics. 3. History of asthma, compensated. 4. Chronic depression. PAST SURGICAL HISTORY: Status post partial pancreatic section for previous insulinoma status p ost cholecystectomy, status post appendectomy. MEDICATIONS PRIOR TO ADMISSION: Octreotide, OxyContin and Oxycodone and Zofran, Seroquel, propranolo l, Oxcarbamazepine and Benadryl. THE PATIENT HAS MULTIPLE DRUG ALLERGIES: Includin. IODINE. 2. MORPHINE. 3. FLUOXETINE. 4. KETOROLAC. 5. MEPERIDINE. 6. SULFA. SOCIAL HISTORY: The patient lives at home. He is a heavy smoker and drinks alcohol on occasions. PHYSICAL EXAMINATION: GENERAL: Well-developed, well-nourished young male who is in no apparent distress. VITAL SIGNS: Stable. He is afebrile. HEENT: Extraocular muscles are intact. Pupils are equal and reactive to light bilaterally. Sclerae are anicteric. Oropharynx is clear and moist. NECK: Supple, no JVD, no carotid bruits. LUNGS: Clear to auscultation bilaterally. CARDIAC: Regular rate and rhythm. No murmurs or gallops. ABDOMEN: Soft, nontender, nondistended, normoactive bowel sounds. EXTREMITIES: No clubbing, cyanosis, or edema. NEUROLOGICAL: Nonfocal. LABORATORY DATA: White blood cell count of 5000, hemoglobin 12.6, platelet count is 115,000. Basic metabolic panel within normal limits. ASSESSMENT: A 42-year-old male with: 1. Hypoglycemia due to recurrent insulinoma. 2. Chronic pain syndrome. 3. Narcotic dependence. 4. Chronic depression. PLAN: 1. Admit to ICU. Continue D10 drip. 2. Continue octreotide. 3. Monitor blood sugar closely. 4. Endocrinology consultation was requested. 5. Avoid IV narcotics during the hospitalization due to the history of narcotic dependence. Dictated By: NADIA WALTON/STEVEN Conf#: [id number] DID#: [id number] CC: CHELSIE HAN MD;*EndCC*
[2018-09-07 14:40] VITALS: PULSE 67
[2018-09-07 14:44] VITALS: BP 120/75; PULSE 63; RESP 13
[2018-09-07 15:00] VITALS: BP 107/85; PULSE 65; RESP 15; Ht 170.2 cm; Wt 73.8 kg
[2018-09-07 16:00] VITALS: BP 126/95; PULSE 68; PULSE 73; RESP 15
[2018-09-07 17:00] VITALS: BP 132/90; PULSE 70; RESP 11
[2018-09-07] MEDS ORDERED: ACARBOSE 50 MG TAB PO SCH (17:35)
[2018-09-07 18:00] VITALS: BP 134/89; PULSE 69; RESP 14
[2018-09-07] MEDS ORDERED: ATORVASTATIN 20 MG TAB PO SCH (21:00)
[2018-09-07] MEDS ORDERED: QUETIAPINE 100 MG TAB PO SCH (21:00)
--- NOTE | 2018-09-11 14:09 | DS ---
DATE OF ADMISSION: 09/06/2018 DATE OF DISCHARGE: 09/07/2018 DISCHARGE DIAGNOSES: 1. A 42-year-old male with hypoglycemia due to recurrent insulinoma. 2. Narcotic dependence. 3. Drug seeking behavior. 4. Chronic depression. HOSPITAL COURSE: A 42-year-old male with a history of recurrent insulinoma and multiple admissions i n the past, presented to the Emergency Room with complaints of low blood sugars since the morning of admission. Initial evaluation revealed blood sugar as low as 32. Patient was started on D10 drip an d admitted to the ICU. Patient is on oral OxyContin and Oxycodone. He requested IV Dilaudid. I ex plained to the patient that he will not be receiving IV narcotics during this admission and his oral narcotics will be resumed. He insisted on IV Dilaudid. When the patient realized that he will not be used getting IV Dilaudid during the hospitalization, he decided to sign out against medical advice. He was seen in consultation by Dr. Amaral. I have a str taylor feeling that patient stopped taking his octreotide in order to be hospitalized, so he can receive IV Dilaudid. He has a strong drug seeking behavior. The patient was asked to follow up with his [facility] care provider as outpatient. Dictated By: NADIA WALTON/STEVEN Conf#: [id number] DID#: [id number] CC: PARRIS GIRON MD; CHELSIE AMARAL MD;*EndCC*
== END 2018-09-07 18:37 | disposition left against medical advice (07) | DRG 644 ==
LOC: E/R 19:21 → ICU 21:24
PROVIDERS: ADMIT Internal Medicine; ATTEND Internal Medicine
DX: E16.0 Drug-induced hypoglycemia without coma (principal); F11.20 Opioid dependence, uncomplicated; D13.7 Benign neoplasm of endocrine pancreas; F41.9 Anxiety disorder, unspecified; F32.9 Major depressive disorder, single episode, unspecified; F17.210 Nicotine dependence, cigarettes, uncomplicated; R10.13 Epigastric pain; E87.6 Hypokalemia; J45.909 Unspecified asthma, uncomplicated; Z76.5 Malingerer [conscious simulation]
CPT/HCPCS: 36415; 74176; 80048; 80053; 82962; 83690; 85025; 96374; 96375; J0131; J1170; J1610; J2354; J2405; J2930; J3475; J3480; Q9967